=== PATIENT | female | born 1985 | race Caucasian/White ===

== ENCOUNTER 2019-01-22 15:07 | Emergency (ER) | payer OTHER ==
[2019-01-22 15:17] VITALS: BP 139/83; PULSE 105; RESP 16; TEMP 98.1
--- NOTE | 2019-01-22 15:46 | ED ---
Upper Extremity HPI - General Chief Complaint: Extremity Injury, Upper Stated Complaint: Hand Injury-Fall Time Seen by Provider: 01/22/19 15:16 Source: patient, RN notes reviewed Mode of arrival: ambulatory Limitations: no limitations - History of Present Illness Initial Comments: This a 33-year-old female presents emergency Department chief complaint right hand injury. Patient states that she slipped in her tub last night. Patient states she fell backwards catching herself with her right hand. Patient has right hand second digit pain from the distal tip to the metacarpal region. Patient denies any head injury no loss conscious. Patient states that she also has an injury to her fourth digit she has had a chronic issue they're states it is prudent at this time. - Related Data Allergies Allergy/AdvReac Type Severity Reaction Status Date / Time No Known Allergies Allergy Verified 01/22/19 15:17 Review of Systems ROS Statement: Those systems with pertinent positive or pertinent negative responses have been documented in the HPI. ROS Other: All systems not noted in ROS Statement are negative. Past Medical History Past Medical History: Asthma History of Any Multi-Drug Resistant Organisms: None Reported Past Surgical History: Cholecystectomy Past Psychological History: No Psychological Hx Reported Smoking Status: Current some day smoker Past Alcohol Use History: Occasional Past Drug Use History: None Reported General Exam Limitations: no limitations General appearance: alert, in no apparent distress Head exam: Present: atraumatic, normocephalic, normal inspection Eye exam: Present: normal appearance, PERRL, EOMI. Absent: scleral icterus, conjunctival injection, periorbital swelling Neck exam: Present: normal inspection, full ROM. Absent: tenderness, meningismus, lymphadenopathy Respiratory exam: Present: normal lung sounds bilaterally. Absent: respiratory distress, wheezes, rales, rhonchi, stridor Cardiovascular Exam: Present: regular rate, normal rhythm, normal heart sounds. Absent: systolic murmur, diastolic murmur, rubs, gallop, clicks Extremities exam: Present: other (Right hand second digit there is extensive swelling noted from the metacarpal region to the distal tib-fib, limited range of motion secondary to pain there is obvious old deformity to the right hand fourth digit with some ecchymosis noted today. Wrist tenderness no snuffbox tenderness) Neurological exam: Present: alert, oriented X3, CN II-XII intact, reflexes normal. Absent: motor sensory deficit Course Vital Signs 01/22/19 15:14 Temperature 98.1 F Pulse Rate 105 H Respiratory 16 Rate Blood Pressure 139/83 O2 Sat by Pulse 95 Oximetry Medical Decision Making - Medical Decision Making X-rays reviewed no acute fractures. Patient has a right hand sprain will follow-up with PCP return for any worsening symptoms. Disposition Clinical Impression: Sprain of right hand, Sprain of finger, right Disposition: HOME SELF-CARE Condition: Stable Instructions (If sedation given, give patient instructions): Hand Sprain (ED) Additional Instructions: Please return to the Emergency Department if symptoms worsen or any other concerns. Is patient prescribed a controlled substance at d/c from ED?: No Referrals: None,Stated [Primary Care Provider] - 1-2 days Time of Disposition: 16:22
--- NOTE | 2019-01-22 15:53 | XR ---
EXAMINATION TYPE: XR hand complete RT DATE OF EXAM: 01/22/2019 CLINICAL HISTORY: Pain and swelling of the second digit after fall. Limited range of motion. TECHNIQUE: Frontal, lateral and oblique images of the right hand are obtained. COMPARISON: None. FINDINGS: There is no acute fracture/dislocation evident in the right hand. The joint spaces in the right hand appear alignment. Degenerative change and/or old fracture deformity of the fourth distal i nterphalangeal joint with very minimal radial subluxation.. There is focal soft tissue swelling of th e proximal second digit. No radiopaque foreign body.. IMPRESSION: There is no acute fracture or dislocation in the right hand. Soft tissue swelling is see n proximally concerning the second digit and there is old fracture deformity versus degenerative baker ge of the fourth right distal interphalangeal joint.
== END 2019-01-22 16:24 | disposition home or self-care (01) ==
LOC: EC 15:07
DX: S63.650A Sprain of metacarpophalangeal joint of right index finger, initial encounter (principal); F17.200 Nicotine dependence, unspecified, uncomplicated; W19.XXXA Unspecified fall, initial encounter
CPT/HCPCS: 99283

== ENCOUNTER 2019-08-31 21:21 | Inpatient (IN) | payer OTHER ==
[2019-08-31 21:48] LABS: Glucose,Whole Blood 170 mg/dL (75-99)
[2019-08-31] MEDS ORDERED: SODIUM CHLORIDE 0.9% 2,000 ML IV STA (21:48)
[2019-08-31] MEDS ORDERED: ONDANSETRON 4 MG/2 ML VIAL IVP STA (21:48)
[2019-08-31] MEDS ORDERED: LORazepam 2 MG/ML INJ IV STA (21:49)
[2019-08-31 22:35] LABS: HCT 54.3 % (34.0-46.0); HGB 15.7 gm/dL (11.4-16.0); Hypochromasia Marked; MCH 32.8 pg (25.0-35.0); MCHC 28.8 g/dL (31.0-37.0); MCV 113.6 fL (80.0-100.0); Macrocytosis Marked; Mean Platelet Volume 9.9; Platelet Count 174 k/uL (150-450); RBC 4.78 m/uL (3.80-5.40); RDW 15.6 % (11.5-15.5)
[2019-08-31 22:46] LABS: ALT 83 U/L (4-34); AST 252 U/L (14-36); African American GFR (CKD) 85 (>60 ml/min/1.73 sqM); Albumin 5.7 g/dL (3.5-5.0); Alkaline Phosphatase 353 U/L (38-126); Amylase 119 U/L (30-110); Blood Urea Nitrogen 9 mg/dL (7-17); Calcium 9.9 mg/dL (8.4-10.2); Chloride 101 mmol/L (98-107); Glucose 170 mg/dL (74-99); Magnesium 2.6 mg/dL (1.6-2.3); Non-African American GFR(CKD) 74 (>60 ml/min/1.73 sqM); Sodium 136 mmol/L (137-145); Total Bilirubin 1.6 mg/dL (0.2-1.3); Total Protein 9.6 g/dL (6.3-8.2)
[2019-08-31 22:47] LABS: Anisocytosis (M) Present; Band Neutrophils % 7 %; Lymphocytes # (M) 1.43 k/uL (1.0-4.8); Metamyelocytes # (M) 0.26 k/uL (0); Metamyelocytes % 2 %; Monocytes # (M) 0.65 k/uL (0-1.0); Neutrophils % (M) 76 %; Nucleated Red Blood Cells 0 /100 WBC (0-0); Total Cells Counted 200
[2019-08-31 23:09] LABS: Carbon Dioxide <5 mmol/L (22-30); Potassium 6.1 mmol/L (3.5-5.1)
[2019-08-31 23:26] LABS: HCG,Qualitative Serum Not Detected
[2019-08-31] MEDS ORDERED: SODIUM BICARB 8.4% 50 ML SYR (1 MEQ/ML) IV STA ×2 (23:33)
[2019-08-31] MEDS ORDERED: SODIUM CHLORIDE 0.9% 1,000 ML IV STA ×2 (23:35)
--- NOTE | 2019-08-31 23:36 | XR ---
EXAMINATION TYPE: XR chest 2V DATE OF EXAM: 08/31/2019 COMPARISON: NONE HISTORY: Short of breath. Cough. Nausea. TECHNIQUE: 2 views FINDINGS: Heart and mediastinum are normal. Lungs are clear. Diaphragm is normal. Bony thorax appears normal. IMPRESSION: Normal chest. Normal heart.
--- NOTE | 2019-08-31 23:39 | ED ---
General Adult HPI - General Source: patient Mode of arrival: ambulatory Limitations: no limitations <Rhoda Pedroza - Last Filed: 08/31/19 23:40> - General Source: RN notes reviewed, old records reviewed - History of Present Illness -: days(s) Severity scale (1-10): 10 Consistency: constant Improves with: none Worsens with: eating, movement Associated Symptoms: malaise, nausea/vomiting, shortness of breath, weakness Treatments Prior to Arrival: none <Dipak Cardozo - Last Filed: 09/01/19 01:34> - General Chief complaint: Shortness of Breath Stated complaint: Vomiting, SOB Time Seen by Provider: 08/31/19 21:40 - History of Present Illness Initial comments: 34-year-old female patient presents to the emergency department today for evaluation of nausea, vomiting, shortness of breath. Patient states she's been sick since yesterday morning with vomiting. States she is unable to keep down any food or fluids. Patient states today she started to feel short of breath like she wasn't getting enough air. States that she is having some discomfort to the mid chest with this. Denies any abdominal pain, constipation, or diarrhea. Denies any hematochezia, melena, or hematemesis. Denies any fever or chills. Denies any cough or congestion. Patient states that she has been urinating frequently, every 20 minutes. Denies any dysuria or hematuria. Denies any chance of . Patient does admit to drinking alcohol daily for the last several years. Denies drinking alcohol today. Patient denies any recent rash, chest pain, abdominal pain, numbness, tingling, dizziness, weakness, hematuria, dysuria, urinary urgency, urinary frequency, headache, visual changes, or any other complaints. (Rhoda Pedroza) - Related Data Home Medications Medication Instructions Recorded Confirmed Albuterol Inhaler [Ventolin Hfa 2 puff INHALATION RT-Q6H PRN 08/31/19 08/31/19 Inhaler] Buprenorphine HCl/Naloxone HCl 0.5 film SL HS 08/31/19 08/31/19 [Suboxone 4 mg-1 mg Sl Film] Buprenorphine HCl/Naloxone HCl 1 film SL DAILY 08/31/19 08/31/19 [Suboxone 4 mg-1 mg Sl Film] Venlafaxine HCl [Effexor XR] 37.5 mg PO DAILY 08/31/19 08/31/19 busPIRone HCL 15 mg PO BID 08/31/19 08/31/19 lamoTRIgine [LaMICtal] 50 mg PO BID 08/31/19 08/31/19 Allergies Allergy/AdvReac Type Severity Reaction Status Date / Time No Known Allergies Allergy Verified 08/31/19 22:21 Review of Systems ROS Other: All systems not noted in ROS Statement are negative. <Rhoda Pedroza - Last Filed: 08/31/19 23:40> ROS Other: All systems not noted in ROS Statement are negative. <Dipak Cardooz - Last Filed: 09/01/19 01:34> ROS Statement: Those systems with pertinent positive or pertinent negative responses have been documented in the HPI. Past Medical History Past Medical History: Asthma History of Any Multi-Drug Resistant Organisms: None Reported Past Surgical History: Cholecystectomy Past Psychological History: No Psychological Hx Reported Smoking Status: Current some day smoker Past Alcohol Use History: Heavy Past Drug Use History: None Reported <Rhoda Pedroza - Last Filed: 08/31/19 23:40> General Exam Limitations: no limitations General appearance: alert, in no apparent distress, other (This is a well- developed, well-nourished adult female patient who appears to be short of breath and quite anxious. Vital signs upon presentation are temperature 97.4F, pulse 124, respirations 20, blood pressure 149/89, pulse ox 99% on room air.) Eye exam: Present: normal appearance, PERRL, EOMI. Absent: scleral icterus, conjunctival injection, periorbital swelling ENT exam: Present: normal exam, normal oropharynx, mucous membranes moist Respiratory exam: Present: normal lung sounds bilaterally, respiratory distress, other (Lungs sounds are clear, she is to, abdominal accessory muscle use). Absent: wheezes, rales, rhonchi, stridor Cardiovascular Exam: Present: normal rhythm, tachycardia, normal heart sounds. Absent: systolic murmur, diastolic murmur, rubs, gallop, clicks GI/Abdominal exam: Present: soft, normal bowel sounds. Absent: distended, tenderness, guarding, rebound, rigid Neurological exam: Present: alert, oriented X3, CN II-XII intact Psychiatric exam: Present: normal affect, normal mood Skin exam: Present: warm, dry, intact, normal color. Absent: rash <Rhoda Pedroza - Last Filed: 08/31/19 23:40> General appearance: alert, anxious, in distress Head exam: Present: atraumatic, normocephalic, normal inspection Eye exam: Present: normal appearance, PERRL, EOMI. Absent: scleral icterus, conjunctival injection, periorbital swelling ENT exam: Present: normal exam, mucous membranes dry. Absent: mucous membranes moist Neck exam: Present: normal inspection. Absent: tenderness, meningismus, lymphadenopathy Respiratory exam: Present: respiratory distress, accessory muscle use. Absent: normal lung sounds bilaterally, wheezes, rales, rhonchi, stridor Cardiovascular Exam: Present: regular rate, tachycardia, normal heart sounds. Absent: normal rhythm, systolic murmur, diastolic murmur, rubs, gallop, clicks GI/Abdominal exam: Present: soft, normal bowel sounds. Absent: distended, tend erness, guarding, rebound, rigid Extremities exam: Present: normal inspection, full ROM, normal capillary refill. Absent: tenderness, pedal edema, joint swelling, calf tenderness Back exam: Present: normal inspection Neurological exam: Present: alert, oriented X3, CN II-XII intact Psychiatric exam: Present: normal affect, normal mood, agitated, anxious Skin exam: Present: warm, dry, intact, normal color. Absent: rash <Dipak Cardozo B - Last Filed: 09/01/19 01:34> Course <Rhoda Pedroza M - Last Filed: 08/31/19 23:40> Vital Signs 08/31/19 08/31/19 08/31/19 21:28 21:56 22:00 Temperature 97.4 F L Pulse Rate 124 H 119 H Pulse Rate [ 160 H Apical] Respiratory 20 24 Rate Blood Pressure 149/89 156/101 O2 Sat by Pulse 99 98 Oximetry 08/31/19 09/01/19 09/01/19 22:11 00:50 01:02 Temperature 98.5 F Pulse Rate 118 H 142 H Pulse Rate [ 144 H Apical] Respiratory 26 H 28 H Rate Blood Pressure 166/105 150/102 O2 Sat by Pulse 98 97 Oximetry 09/01/19 01:20 Temperature Pulse Rate 120 H Pulse Rate [ Apical] Respiratory Rate Blood Pressure O2 Sat by Pulse Oximetry - Reevaluation(s) Reevaluation #1: 08/31/19 23:40 Care is handed over to my attending Dr. Cardozo at 2330. (Rhoda Pedroza) EKG Findings - EKG Comments: EKG Findings:: EKG obtained at 2211 shows sinus tachycardia with a left anterior fascicular block, ventricular rate is 118, ID interval 134, QRS duration 86, QT 342, QTc 479. No evidence of ST elevation or depression. <Rhoda Pedroza - Last Filed: 08/31/19 23:40> - EKG Comments: EKG Findings:: EKG shows sinus tachycardia 144, ID 90, QRS 78, QTC 566 <Dipak Cardozo - Last Filed: 09/01/19 01:34> Medical Decision Making - Lab Data Result diagrams: 08/31/19 21:57 08/31/19 21:57 <Rhoda Pedroza - Last Filed: 08/31/19 23:40> - Lab Data Result diagrams: 08/31/19 21:57 08/31/19 21:57 <Dipak Cardozo - Last Filed: 09/01/19 01:34> - Lab Data Lab Results 08/31/19 08/31/19 08/31/19 Range/Units 21:46 21:57 21:57 WBC 13.0 H (3.8-10.6) k/uL RBC 4.78 (3.80-5.40) m/uL Hgb 15.7 (11.4-16.0) gm/dL Hct 54.3 H (34.0-46.0) % MCV 113.6 H (80.0-100.0) fL MCH 32.8 (25.0-35.0) pg MCHC 28.8 L (31.0-37.0) g/dL RDW 15.6 H (11.5-15.5) % Plt Count 174 (150-450) k/uL Neutrophils % (Manual) 76 % Band Neutrophils % 7 % Lymphocytes % (Manual) 11 % Monocytes % (Manual) 5 % Metamyelocytes % 2 % Neutrophils # (Manual) 10.70 H (1.3-7.7) k/uL Lymphocytes # (Manual) 1.43 (1.0-4.8) k/uL Monocytes # (Manual) 0.65 (0-1.0) k/uL Metamyelocytes # (Man) 0.26 H (0) k/uL Nucleated RBCs 0 (0-0) /100 WBC Manual Slide Review Performed Hypochromasia Marked Anisocytosis (manual) Present Macrocytosis Marked A VBG pH (7.31-7.41) VBG pCO2 (37-51) mmHg VBG HCO3 (24-28) mmol/L Sodium 136 L (137-145) mmol/L Potassium 6.1 H* (3.5-5.1) mmol/L Chloride 101 (98-107) mmol/L Carbon Dioxide <5 L* (22-30) mmol/L Anion Gap mmol/L BUN 9 (7-17) mg/dL Creatinine 1.01 (0.52-1.04) mg/dL Est GFR (CKD-EPI)AfAm 85 (>60 ml/min/1.73 sqM) Est GFR (CKD-EPI)NonAf 74 (>60 ml/min/1.73 sqM) Glucose 170 H (74-99) mg/dL POC Glucose (mg/dL) 170 H (75-99) mg/dL POC Glu [employer] ID Tiffani [employer] Osmolality (280-301) mosm/kg Plasma Lactic Acid Enzo (0.7-2.0) mmol/L Calcium 9.9 (8.4-10.2) mg/dL Phosphorus (2.5-4.5) mg/dL Magnesium 2.6 H (1.6-2.3) mg/dL Total Bilirubin 1.6 H (0.2-1.3) mg/dL AST 252 H (14-36) U/L ALT 83 H (4-34) U/L Alkaline Phosphatase 353 H (38-126) U/L Troponin I (0.000-0.034) ng/mL Total Protein 9.6 H (6.3-8.2) g/dL Albumin 5.7 H (3.5-5.0) g/dL Amylase 119 H (30-110) U/L Lipase 626 H (23-300) U/L HCG, Qual Urine Color Urine Appearance (Clear) Urine pH (5.0-8.0) Ur Specific Ellis (1.001-1.035) Urine Protein (Negative) Urine Glucose (UA) (Negative) Urine Ketones (Negative) Urine Blood (Negative) Urine Nitrite (Negative) Urine Bilirubin (Negative) Urine Urobilinogen (<2.0) mg/dL Ur Leukocyte Esterase (Negative) Urine RBC (0-5) /hpf Ur Squamous Epith Cells (0-4) /hpf Urine Bacteria (None) /hpf Hyaline Casts (0-2) /lpf Urine Mucus (None) /hpf Salicylates mg/dL Acetaminophen ug/mL Serum Alcohol mg/dL Acetone, Qual Positive (Negative) 08/31/19 08/31/19 08/31/19 Range/Units 21:57 21:57 23:34 WBC (3.8-10.6) k/uL RBC (3.80-5.40) m/uL Hgb (11.4-16.0) gm/dL Hct (34.0-46.0) % MCV (80.0-100.0) fL MCH (25.0-35.0) pg MCHC (31.0-37.0) g/dL RDW (11.5-15.5) % Plt Count (150-450) k/uL Neutrophils % (Manual) % Band Neutrophils % % Lymphocytes % (Manual) % Monocytes % (Manual) % Metamyelocytes % % Neutrophils # (Manual) (1.3-7.7) k/uL Lymphocytes # (Manual) (1.0-4.8) k/uL Monocytes # (Manual) (0-1.0) k/uL Metamyelocytes # (Man) (0) k/uL Nucleated RBCs (0-0) /100 WBC Manual Slide Review Hypochromasia Anisocytosis (manual) Macrocytosis VBG pH (7.31-7.41) VBG pCO2 (37-51) mmHg VBG HCO3 (24-28) mmol/L Sodium (137-145) mmol/L Potassium (3.5-5.1) mmol/L Chloride (98-107) mmol/L Carbon Dioxide (22-30) mmol/L Anion Gap mmol/L BUN (7-17) mg/dL Creatinine (0.52-1.04) mg/dL Est GFR (CKD-EPI)AfAm (>60 ml/min/1.73 sqM) Est GFR (CKD-EPI)NonAf (>60 ml/min/1.73 sqM) Glucose (74-99) mg/dL POC Glucose (mg/dL) (75-99) mg/dL POC Glu [employer] ID Osmolality 311 H (280-301) mosm/kg Plasma Lactic Acid Enzo 1.4 (0.7-2.0) mmol/L Calcium (8.4-10.2) mg/dL Phosphorus (2.5-4.5) mg/dL Magnesium (1.6-2.3) mg/dL Total Bilirubin (0.2-1.3) mg/dL AST (14-36) U/L ALT (4-34) U/L Alkaline Phosphatase (38-126) U/L Troponin I <0.012 (0.000-0.034) ng/mL Total Protein (6.3-8.2) g/dL Albumin (3.5-5.0) g/dL Amylase (30-110) U/L Lipase (23-300) U/L HCG, Qual Not Detected Urine Color Urine Appearance (Clear) Urine pH (5.0-8.0) Ur Specific Ellis (1.001-1.035) Urine Protein (Negative) Urine Glucose (UA) (Negative) Urine Ketones (Negative) Urine Blood (Negative) Urine Nitrite (Negative) Urine Bilirubin (Negative) Urine Urobilinogen (<2.0) mg/dL Ur Leukocyte Esterase (Negative) Urine RBC (0-5) /hpf Ur Squamous Epith Cells (0-4) /hpf Urine Bacteria (None) /hpf Hyaline Casts (0-2) /lpf Urine Mucus (None) /hpf Salicylates mg/dL Acetaminophen ug/mL Serum Alcohol mg/dL Acetone, Qual (Negative) 08/31/19 08/31/19 09/01/19 Range/Units 23:52 23:52 00:35 WBC (3.8-10.6) k/uL RBC (3.80-5.40) m/uL Hgb (11.4-16.0) gm/dL Hct (34.0-46.0) % MCV (80.0-100.0) fL MCH (25.0-35.0) pg MCHC (31.0-37.0) g/dL RDW (11.5-15.5) % Plt Count (150-450) k/uL Neutrophils % (Manual) % Band Neutrophils % % Lymphocytes % (Manual) % Monocytes % (Manual) % Metamyelocytes % % Neutrophils # (Manual) (1.3-7.7) k/uL Lymphocytes # (Manual) (1.0-4.8) k/uL Monocytes # (Manual) (0-1.0) k/uL Metamyelocytes # (Man) (0) k/uL Nucleated RBCs (0-0) /100 WBC Manual Slide Review Hypochromasia Anisocytosis (manual) Macrocytosis VBG pH 6.94 L* (7.31-7.41) VBG pCO2 22 L (37-51) mmHg VBG HCO3 5 L* (24-28) mmol/L Sodium (137-145) mmol/L Potassium (3.5-5.1) mmol/L Chloride (98-107) mmol/L Carbon Dioxide (22-30) mmol/L Anion Gap mmol/L BUN (7-17) mg/dL Creatinine (0.52-1.04) mg/dL Est GFR (CKD-EPI)AfAm (>60 ml/min/1.73 sqM) Est GFR (CKD-EPI)NonAf (>60 ml/min/1.73 sqM) Glucose (74-99) mg/dL POC Glucose (mg/dL) (75-99) mg/dL POC Glu [employer] ID Osmolality (280-301) mosm/kg Plasma Lactic Acid Enzo (0.7-2.0) mmol/L Calcium (8.4-10.2) mg/dL Phosphorus 6.1 H (2.5-4.5) mg/dL Magnesium 2.4 H (1.6-2.3) mg/dL Total Bilirubin (0.2-1.3) mg/dL AST (14-36) U/L ALT (4-34) U/L Alkaline Phosphatase (38-126) U/L Troponin I (0.000-0.034) ng/mL Total Protein (6.3-8.2) g/dL Albumin (3.5-5.0) g/dL Amylase (30-110) U/L Lipase (23-300) U/L HCG, Qual Urine Color Light Yellow Urine Appearance Clear (Clear) Urine pH 5.5 (5.0-8.0) Ur Specific Ellis 1.016 (1.001-1.035) Urine Protein 2+ H (Negative) Urine Glucose (UA) Negative (Negative) Urine Ketones 4+ H (Negative) Urine Blood Large H (Negative) Urine Nitrite Negative (Negative) Urine Bilirubin Negative (Negative) Urine Urobilinogen 2.0 (<2.0) mg/dL Ur Leukocyte Esterase Negative (Negative) Urine RBC 31 H (0-5) /hpf Ur Squamous Epith Cells <1 (0-4) /hpf Urine Bacteria Rare H (None) /hpf Hyaline Casts 1 (0-2) /lpf Urine Mucus Rare H (None) /hpf Salicylates 1.1 mg/dL Acetaminophen <10.0 ug/mL Serum Alcohol <10 mg/dL Acetone, Qual (Negative) Critical Care Time Critical Care Time: Yes Total Critical Care Time: 95 <Dipak Cardozo - Last Filed: 09/01/19 01:34> Disposition <Rhoda Pedroza - Last Filed: 08/31/19 23:40> Is patient prescribed a controlled substance at d/c from ED?: No <Dipak Cardozo - Last Filed: 09/01/19 01:34> Clinical Impression: Acidosis, Dehydration, Nausea & vomiting Narrative: suspect Toxic Alcohol Ingestion (Dipak Cardozo) Disposition: ADMITTED IP TO THIS HOSP Condition: Critical Referrals: Yareli Tuttle MD [Primary Care Provider] - 1-2 days
[2019-08-31] MEDS: DEXTROSE 5% IN WATER 1,000 ML with SODIUM BICARB (1 MEQ/ML) 150 ML IV SCH (23:55)
[2019-09-01] MEDS ORDERED: PANTOPRAZOLE 40 MG/10 ML VIAL IVP STA (00:15)
[2019-09-01 00:17] LABS: Acetaminophen <10.0 ug/mL; Alcohol <10 mg/dL; Salicylate 1.1 mg/dL
[2019-09-01 00:19] LABS: Magnesium 2.4 mg/dL (1.6-2.3); Phosphorus 6.1 mg/dL (2.5-4.5)
[2019-09-01 00:22] LABS: VBG PH 6.94 (7.31-7.41)
[2019-09-01 00:44] LABS: Appearance,Urine Clear (Clear); Bacteria,Urine Rare /hpf; Bilirubin,Urine Negative (Negative); Blood,Urine Large (Negative); Color,Urine Light Yellow; Glucose,Urine (UA) Negative (Negative); Hyaline Casts,Urine 1 /lpf (0-2); Ketones,Urine 4+ (Negative); Leukocyte Esterase,Urine Negative (Negative); Mucus,Urine Rare /hpf; Nitrite,Urine Negative (Negative); PH, Urine 5.5 (5.0-8.0); Protein,Urine 2+ (Negative); RBC,Urine 31 /hpf (0-5); Specific Gravity,Urine 1.016 (1.001-1.035); Squamous Epithelial Cell,Urine <1 /hpf (0-4)
[2019-09-01] MEDS ORDERED: MORPHINE SULFATE 4 MG/ML SYRINGE IM STA (00:49)
[2019-09-01] MEDS ORDERED: IPRATROPIUM-ALBUTEROL 3 ML NEB INHALATION STA (00:51)
[2019-09-01] MEDS ORDERED: FOLIC ACID 1 MG TAB PO ONE (01:15)
[2019-09-01] MEDS ORDERED: SODIUM CHLORIDE 0.9% IVPB ONE (01:15)
[2019-09-01] MEDS ORDERED: FOMEPIZOLE IVPB ONE (01:15)
[2019-09-01] MEDS ORDERED: PYRIDOXINE 100 MG/ML 1 ML VIAL IVP ONE (01:15)
[2019-09-01] MEDS ORDERED: THIAMINE 100 MG in SODIUM CHLORIDE 0.9% 50 ML IVPB ONE (01:15)
[2019-09-01 01:26] LABS: INR 0.9 (<1.2); Partial Thromboplastin Time 28.5 sec (22.0-30.0); Prothrombin Time 9.8 sec (9.0-12.0)
[2019-09-01] MEDS ORDERED: NALOXONE 0.4 MG/ML 1 ML VIAL IV PRN (01:30)
--- NOTE | 2019-09-01 02:38 | P.GSCN ---
History of Present Illness Consult date: 09/01/19 History of present illness: Patient is a 34-year-old female in with toxic alcohol ingestion. She denies any ingestion of antifreeze but she presents with an anion gap metabolic acidosis. Consult was requested for emergent hemodialysis access Past Medical History Past Medical History: Asthma History of Any Multi-Drug Resistant Organisms: None Reported Past Surgical History: Cholecystectomy Past Psychological History: No Psychological Hx Reported Smoking Status: Current some day smoker Past Alcohol Use History: Heavy Past Drug Use History: None Reported Medications and Allergies Home Medications Medication Instructions Recorded Confirmed Type Albuterol Inhaler [Ventolin Hfa 2 puff INHALATION RT-Q6H PRN 08/31/19 08/31/19 History Inhaler] Buprenorphine HCl/Naloxone HCl 0.5 film SL HS 08/31/19 08/31/19 History [Suboxone 4 mg-1 mg Sl Film] Buprenorphine HCl/Naloxone HCl 1 film SL DAILY 08/31/19 08/31/19 History [Suboxone 4 mg-1 mg Sl Film] Venlafaxine HCl [Effexor XR] 37.5 mg PO DAILY 08/31/19 08/31/19 History busPIRone HCL 15 mg PO BID 08/31/19 08/31/19 History lamoTRIgine [LaMICtal] 50 mg PO BID 08/31/19 08/31/19 History Allergies Allergy/AdvReac Type Severity Reaction Status Date / Time No Known Allergies Allergy Verified 08/31/19 22:21 Surgical - Exam Vital Signs Temp Pulse Resp BP Pulse Ox 97.4 F L 124 H 20 149/89 99 08/31/19 21:28 08/31/19 21:28 08/31/19 21:28 08/31/19 21:28 08/31/19 21:28 Genitals a pleasant cooperative appendage female in no acute distress. HEENT is normal cephalic, atraumatic, extraocular motion intact. Heart regular this time, tachycardic. Lungs clear bilaterally. Abdomen soft, nontender nondistended. Extremity show no clubbing, cyanosis or edema. She has palpable femoral pulses bilaterally. Feet are warm and dry. Adequate capillary refill. Follows commands. Results - Labs 08/31/19 21:57 08/31/19 21:57 Abnormal Lab Results - Last 24 Hours (Table) 08/31/19 08/31/19 08/31/19 Range/Units 21:46 21:57 21:57 WBC 13.0 H (3.8-10.6) k/uL Hct 54.3 H (34.0-46.0) % MCV 113.6 H (80.0-100.0) fL MCHC 28.8 L (31.0-37.0) g/dL RDW 15.6 H (11.5-15.5) % Neutrophils # (Manual) 10.70 H (1.3-7.7) k/uL Metamyelocytes # (Man) 0.26 H (0) k/uL Macrocytosis Marked A VBG pH (7.31-7.41) VBG pCO2 (37-51) mmHg VBG HCO3 (24-28) mmol/L Sodium 136 L (137-145) mmol/L Potassium 6.1 H* (3.5-5.1) mmol/L Carbon Dioxide <5 L* (22-30) mmol/L Glucose 170 H (74-99) mg/dL POC Glucose (mg/dL) 170 H (75-99) mg/dL Osmolality (280-301) mosm/kg Phosphorus (2.5-4.5) mg/dL Magnesium 2.6 H (1.6-2.3) mg/dL Total Bilirubin 1.6 H (0.2-1.3) mg/dL AST 252 H (14-36) U/L ALT 83 H (4-34) U/L Alkaline Phosphatase 353 H (38-126) U/L Total Protein 9.6 H (6.3-8.2) g/dL Albumin 5.7 H (3.5-5.0) g/dL Amylase 119 H (30-110) U/L Lipase 626 H (23-300) U/L Urine Protein (Negative) Urine Ketones (Negative) Urine Blood (Negative) Urine RBC (0-5) /hpf Urine Bacteria (None) /hpf Urine Mucus (None) /hpf 08/31/19 08/31/19 08/31/19 Range/Units 21:57 23:52 23:52 WBC (3.8-10.6) k/uL Hct (34.0-46.0) % MCV (80.0-100.0) fL MCHC (31.0-37.0) g/dL RDW (11.5-15.5) % Neutrophils # (Manual) (1.3-7.7) k/uL Metamyelocytes # (Man) (0) k/uL Macrocytosis VBG pH 6.94 L* (7.31-7.41) VBG pCO2 22 L (37-51) mmHg VBG HCO3 5 L* (24-28) mmol/L Sodium (137-145) mmol/L Potassium (3.5-5.1) mmol/L Carbon Dioxide (22-30) mmol/L Glucose (74-99) mg/dL POC Glucose (mg/dL) (75-99) mg/dL Osmolality 311 H (280-301) mosm/kg Phosphorus 6.1 H (2.5-4.5) mg/dL Magnesium 2.4 H (1.6-2.3) mg/dL Total Bilirubin (0.2-1.3) mg/dL AST (14-36) U/L ALT (4-34) U/L Alkaline Phosphatase (38-126) U/L Total Protein (6.3-8.2) g/dL Albumin (3.5-5.0) g/dL Amylase (30-110) U/L Lipase (23-300) U/L Urine Protein (Negative) Urine Ketones (Negative) Urine Blood (Negative) Urine RBC (0-5) /hpf Urine Bacteria (None) /hpf Urine Mucus (None) /hpf 09/01/19 Range/Units 00:35 WBC (3.8-10.6) k/uL Hct (34.0-46.0) % MCV (80.0-100.0) fL MCHC (31.0-37.0) g/dL RDW (11.5-15.5) % Neutrophils # (Manual) (1.3-7.7) k/uL Metamyelocytes # (Man) (0) k/uL Macrocytosis VBG pH (7.31-7.41) VBG pCO2 (37-51) mmHg VBG HCO3 (24-28) mmol/L Sodium (137-145) mmol/L Potassium (3.5-5.1) mmol/L Carbon Dioxide (22-30) mmol/L Glucose (74-99) mg/dL POC Glucose (mg/dL) (75-99) mg/dL Osmolality (280-301) mosm/kg Phosphorus (2.5-4.5) mg/dL Magnesium (1.6-2.3) mg/dL Total Bilirubin (0.2-1.3) mg/dL AST (14-36) U/L ALT (4-34) U/L Alkaline Phosphatase (38-126) U/L Total Protein (6.3-8.2) g/dL Albumin (3.5-5.0) g/dL Amylase (30-110) U/L Lipase (23-300) U/L Urine Protein 2+ H (Negative) Urine Ketones 4+ H (Negative) Urine Blood Large H (Negative) Urine RBC 31 H (0-5) /hpf Urine Bacteria Rare H (None) /hpf Urine Mucus Rare H (None) /hpf Diabetes panel 08/31/19 Range/Units 21:57 Sodium 136 L (137-145) mmol/L Potassium 6.1 H* (3.5-5.1) mmol/L Chloride 101 (98-107) mmol/L Carbon Dioxide <5 L* (22-30) mmol/L BUN 9 (7-17) mg/dL Creatinine 1.01 (0.52-1.04) mg/dL Glucose 170 H (74-99) mg/dL Calcium 9.9 (8.4-10.2) mg/dL AST 252 H (14-36) U/L ALT 83 H (4-34) U/L Alkaline Phosphatase 353 H (38-126) U/L Total Protein 9.6 H (6.3-8.2) g/dL Albumin 5.7 H (3.5-5.0) g/dL Calcium panel 08/31/19 08/31/19 Range/Units 21:57 23:52 Calcium 9.9 (8.4-10.2) mg/dL Phosphorus 6.1 H (2.5-4.5) mg/dL Albumin 5.7 H (3.5-5.0) g/dL Pituitary panel 08/31/19 Range/Units 21:57 Sodium 136 L (137-145) mmol/L Potassium 6.1 H* (3.5-5.1) mmol/L Chloride 101 (98-107) mmol/L Carbon Dioxide <5 L* (22-30) mmol/L BUN 9 (7-17) mg/dL Creatinine 1.01 (0.52-1.04) mg/dL Glucose 170 H (74-99) mg/dL Calcium 9.9 (8.4-10.2) mg/dL Adrenal panel 08/31/19 Range/Units 21:57 Sodium 136 L (137-145) mmol/L Potassium 6.1 H* (3.5-5.1) mmol/L Chloride 101 (98-107) mmol/L Carbon Dioxide <5 L* (22-30) mmol/L BUN 9 (7-17) mg/dL Creatinine 1.01 (0.52-1.04) mg/dL Glucose 170 H (74-99) mg/dL Calcium 9.9 (8.4-10.2) mg/dL Total Bilirubin 1.6 H (0.2-1.3) mg/dL AST 252 H (14-36) U/L ALT 83 H (4-34) U/L Alkaline Phosphatase 353 H (38-126) U/L Total Protein 9.6 H (6.3-8.2) g/dL Albumin 5.7 H (3.5-5.0) g/dL Assessment and Plan Assessment: Hyperkalemia Hypermagnesemia hyperphosphatemia Abnormal LFTs Suspected toxic alcohol ingestion Need for emergent hemodialysis Plan: We'll plan for placement of emergent temporary hemodialysis catheter
--- NOTE | 2019-09-01 02:46 | P.OP ---
Date of Procedure: 09/01/19 Description of Procedure: Preoperative diagnosis: Suspected toxic alcohol ingestion, hyperkalemia Postoperative diagnosis: Same Procedure: [Ultrasound-guided right common femoral vein access, placement of temporary dialysis cathether] Surgeon: Melissa Toth D.O. EBL: [<10cc] IV fluids: [none] Urine output: [none] Drains: [none] Complications: [none] Condition: [Stable but critical] Operative indication and findings: [Patient is a 34-year-old female with suspected toxic alcohol ingestion we are asked to see her for placement of temporary dialysis catheter] Procedure in detail: [Patient's placed in supine position. The right groin was prepped and draped in usual sterile fashion. A preprocedure timeout was performed, all parties are in agreement. This was performed under emergent necessity. Ultrasound utilized and the right common femoral vein was identified. The skin overlying was anesthetized 1% lidocaine plain. Under ultrasound guidance, the common femoral vein was cannulated. Wire was advanced freely without resistance. The tract was serially dilated and a previously flushed 16 cm her catheter was placed. The catheter was aspirated and flushed freely. It was sutured in place with 3-0 nylon. Dressings were placed. Patient tolerated procedure well]
[2019-09-01 07:57] LABS: Glucose,Whole Blood 110 mg/dL (75-99)
[2019-09-01] MEDS: PANTOPRAZOLE 40 MG/10 ML VIAL IV SCH (08:49)
[2019-09-01] MEDS: FOLIC ACID 1 MG TAB PO SCH (08:49)
[2019-09-01 08:50] LABS: VBG PH 7.38 (7.31-7.41)
[2019-09-01 08:59] LABS: Basophils % (A) 0 %; Eosinophils # (A) 0.2 k/uL (0-0.7); Eosinophils % (A) 1 %; HCT 42.3 % (34.0-46.0); HGB 13.2 gm/dL (11.4-16.0); Hypochromasia Moderate; Lymphocytes # (A) 0.6 k/uL (1.0-4.8); Lymphocytes % (A) 5 %; MCH 33.1 pg (25.0-35.0); MCHC 31.1 g/dL (31.0-37.0); Macrocytosis Moderate; Mean Platelet Volume 9.3; Monocytes # (A) 0.3 k/uL (0-1.0); Monocytes % (A) 3 %; Neutrophils # (A) 10.7 k/uL (1.3-7.7); Neutrophils % (A) 91 %; RBC 3.98 m/uL (3.80-5.40); RDW 15.1 % (11.5-15.5); WBC 11.8 k/uL (3.8-10.6)
[2019-09-01 09:00] LABS: MCV 106.4 fL (80.0-100.0)
[2019-09-01 09:06] LABS: ALT 57 U/L (4-34); AST 160 U/L (14-36); African American GFR (CKD) >90 (>60 ml/min/1.73 sqM); Albumin 4.3 g/dL (3.5-5.0); Alkaline Phosphatase 240 U/L (38-126); Anion Gap 24 mmol/L; Blood Urea Nitrogen 2 mg/dL (7-17); Calcium 7.8 mg/dL (8.4-10.2); Carbon Dioxide 16 mmol/L (22-30); Chloride 92 mmol/L (98-107); Glucose 110 mg/dL (74-99); Magnesium 1.5 mg/dL (1.6-2.3); Non-African American GFR(CKD) >90 (>60 ml/min/1.73 sqM); Potassium 3.4 mmol/L (3.5-5.1); Sodium 132 mmol/L (137-145); Total Bilirubin 1.6 mg/dL (0.2-1.3)
[2019-09-01 09:11] LABS: Platelet Count 97 k/uL (150-450)
[2019-09-01 09:40] LABS: Phosphorus 0.9 mg/dL (2.5-4.5)
[2019-09-01 09:41] LABS: Amylase 437 U/L (30-110)
[2019-09-01] MEDS ORDERED: Phosphorus Replacement Protoco 1 EACH MISC MISCELLANE PRN (09:44)
[2019-09-01] MEDS: SODIUM PHOSPHATE 10 MMOL in SODIUM CHLORIDE 0.9% 250 ML IVPB SCH ×3 (11:30→15:30)
[2019-09-01 14:05] LABS: Hepatitis B Surface AB- Quant 3.5 mIU/mL; Hepatitis B Surface Antibody Non-Reactive (Non-Reactive)
--- NOTE | 2019-09-01 14:10 | P.CN ---
Psychiatric Consult - . Consult date: 09/01/19 Consult:: IDENTIFYING DATA: The patient is a 34-year-old female who has history of alcohol and opiate use disorder. She presented to [facility] with complaints of nausea, vomiting and shortness of breath. The emergency room ph ysician submitted a psychiatric consult evaluation of suicidality. HISTORY OF PRESENT ILLNESS: I reviewed the medical record and interviewed the patient. She denied that she has had thoughts of suicide and denied that she made a suicide attempt prior to admission. She was shocked by the suggestion that she may have drank antifreeze. She denied a history of suicide attempts or gestures. She described a history of alcohol and opiate use disorder. She is currently prescribed Suboxone by a community psychiatrist for the treatment of her opiate use disorder. She alleged that she remains abstinent from opiates as long as she takes Suboxone. She described a history of alcohol use and alcohol use problems that have been present since her early 20s. Her alcohol use has increased significantly since she was dismissed from work in May 2019. She talked about her alcohol use and worsening over the last 2 months as she experienced social isolation as a result of the pandemic. She is drinking up to one fifth of vodka per day when she developed nausea, vomiting and shortness of breath. Her admission salicylates 1.1, acetaminophen was less than 10 and serum alcohol was less than 10. Note that her amylase and lipase were markedly elevated at 437 and 8932 respectively. She denied current or recent use of opiates with the exception of the Suboxone. A urine drug screen was not a vailable for review. She described chronic feelings of depression that have worsened during the social isolation and increase in alcohol use. She denied feeling hopeless, helpless or worthless. She denied suicidal ideation, intent or plan. She denied again a history of suicide attempts or gestures. She denied experiencing persistent uncontrolled anxiety. She denied obsessions or compulsions. She denied having periods of elevated mood or sustained irritability consistent with ora or hypomania. She denied such psychotic symptoms with paranoia, confusion and hallucinations. PAST PSYCHIATRIC HISTORY: She denied psychiatric hospitalizations. She's been treated on by a community psychiatrist since she moved to [facility] 4 years ago. He psychiatrist is treating her for opiate use disorder, alcohol use disorder and depression with Lamictal, BuSpar, Effexor and Suboxone. PAST MEDICAL HISTORY: Asthma. ALLERGIES: Known drug ALLERGIES. SUBSTANCE USE HISTORY: She began drinking alcohol in her 20s. She was admitted to [place] for residential alcohol rehabilitation about 4 years ago. She remained in the [place] area because she entered a [facility] after she left [place]. She was abstinent from alcohol while in [place] and the three-quarter house. She began using oral opiates medications in her 20s purportedly following a gallbladder surgery. She described a history of abuse of opiate pain medications and the use of heroin. She has history of poor insufflated and injecting heroin. She last used heroin "many years ago". She was in a residential treatment program for her opiate use disorder in [facility]. She denied participation in a methadone treatment program. She has been abstinent from heroin and oral opiate pain medication since she started Suboxone. FAMILY PSYCHIATRIC/SUBSTANCE USE HISTORY: She believes that her mother has a history of substance use problem. SOCIAL HISTORY: She graduated from high school and received a socialist degree in business administration from [employer]. She is single and has no children. She lives with her fianc. She is currently unemployed and receives unemployment income. She denied a history of DUIs. She is not on probation, parole or has pending charges. MENTAL STATUS EXAM: She presented as a disheveled appearing 34-year-old modera tely obese female who looked older than her stated age. She made eye contact and attempted to interview. She had no distinguishing features or prominent physical abilities. She had a blunted facial expression. She was alert and oriented to person, place and time. She showed psychomotor retardation but no abnormal involuntary movements. Her speech was spontaneous with normal rate and slightly decreased volume. Affect was anxious but stable and appropriate. She denied suicidal ideation, wishes or homicidal ideation. She denied feeling hopeless, helpless or worthless. She did not express ideas reference, paranoid ideation, magical ideation or delusions. Her thinking was abstract and associations were coherent and logical. She denied hallucinations and did not appear to responding to internal stimuli.. IMPRESSIONS: She is a 34-year-old single female with history of opiate and alcohol use disorder. [facility] of n ausea, vomiting and shortness of breath and the contents of increasing use of alcohol over her 2-3 months prior to admission. The emergency room physician consulted psychiatry concerned about suicide ideation and possible suicide attempt. She described a history of depression and has been receiving treatment for depressive disordr make community psychiatrist. However, she denied history of suicide attempts or gestures. She denied that she had attempted suicide or made a suicide attempt prior to admission. She has markedly elevated lipase and amylase consistent with acute pancreatitis. She does not require transfer to inpatient psychiatric unit at this time. DIAGNOSIS: Opiate use disorder on his therapy, alcohol use disorder severe, rule out alcohol withdrawal, depressive disorder unspecified PLAN: Monitor for signs and symptoms of alcohol withdrawal including alcohol withdrawal delirium. Resume her outpatient dose of Suboxone once she is off when necessary morphine sulfate. I concur with the plan to hold her outpatient psychotropic medications. She should continue with outpatient psychiatric services after discharge. There is no indication for transfer to psychiatric un it. Psychiatry will sign off on the case. 09/01/19 13:49
--- NOTE | 2019-09-01 14:58 | P.CNPUL ---
History of Present Illness Consult date: 09/01/19 Reason for consult: other (Severe metabolic acidosis and shortness of breath.) Chief complaint: Vomiting, shortness of breath. History of present illness: This is a 34-year-old female with history of depression, mild intermittent asthma, patient presented to the ER with almost 2 days history of nausea vomiting and shortness of breath. Her symptoms have become much worse on presentation. Could not keep any food down or any liquid. Patient was also complaining of difficulty getting enough air. No wheezing, no chest pain, no fever, no chills, no hemoptysis. Vague chest discomfort was described. She had no melena, no hematemesis. No fever, no chills, she was complaining of frequent urination every 20 minutes. But she had no dysuria, no hematuria. Patient does admit to drinking alcohol daily for the last several years. Denies drinking any other liquids, patient denies drinking any windshield fluid or antifreeze. Upon presentation, the patient was found to have significant abnormal labs. And her bicarb was less than 5. Her pH was extremely low at 6.94 on a venous blood gas. Her pCO2 was 22. Her amylase and lipase were elevated. Liver enzymes were also elevated. Potassium was elevated at 6.1. Her drug screen was negative for salicylates, acetaminophen, alcohol, but it was positive for acetone. Considering the presentation, patient was treated with antizol, placed on sodium bicarb drip, and vascular surgery established a dialysis catheter and the patient was dialyzed based upon the recommendation of nephrology on the case. Patient was admitted to the ICU, kept on sodium bicarb drip, and I was asked to see her on consultation. During my evaluation, the patient was feeling much be tter, breathing a lot easier, she had no shortness of breath, no cough, no wheezing, no nausea, no vomiting, and her labs showed worsening lipase and amylase levels. Bicarb is up to 16. Sugar remained relatively normal. Blood sugar now is 110. And it was as high as 170 on presentation. Patient was seen by psychiatry since admission, and it was felt that the patient has mostly history of opiate and alcohol use disorder. Patient never had any suicidal attempts or gestures. And the patient was not felt to be suicidal at this point. Review of Systems Constitutional: Negative Eyes: Negative ENT: Negative Pulmonary: Occasional cough, shortness of breath on presentation. No wheezing. GI: Nausea vomiting and vague abdominal pain. Genitourinary: Frequent urination but no hematuria and no dysuria. Musculoskeletal: Negative Skin: Negative Psychiatric: History of opiate abuse and alcohol abuse Hematologic: Negative Neurologic: Negative Endocrine: Negative. Past Medical History Past Medical History: Asthma Additional Past Medical History / Comment(s): Broken middle finger R hand History of Any Multi-Drug Resistant Organisms: None Reported Past Surgical History: Cholecystectomy Past Anesthesia/Blood Transfusion Reactions: No Reported Reaction Past Psychological History: Anxiety, Depression Smoking Status: Current some day smoker Past Alcohol Use History: Heavy Past Drug Use History: None Reported Medications and Allergies Home Medications Medication Instructions Recorded Confirmed Type Albuterol Inhaler [Ventolin Hfa 2 puff INHALATION RT-Q6H PRN 08/31/19 08/31/19 History Inhaler] Buprenorphine HCl/Naloxone HCl 0.5 film SL HS 08/31/19 08/31/19 History [Suboxone 4 mg-1 mg Sl Film] Buprenorphine HCl/Naloxone HCl 1 film SL DAILY 08/31/19 08/31/19 History [Suboxone 4 mg-1 mg Sl Film] Venlafaxine HCl [Effexor XR] 37.5 mg PO DAILY 08/31/19 08/31/19 History busPIRone HCL 15 mg PO BID 08/31/19 08/31/19 History lamoTRIgine [LaMICtal] 50 mg PO BID 08/31/19 08/31/19 History Allergies Allergy/AdvReac Type Severity Reaction Status Date / Time No Known Allergies Allergy Verified 08/31/19 22:21 Physical Exam Vitals: Vital Signs Temp Pulse Pulse Resp BP BP Pulse Ox 09/01/19 11:09 107 H 15 09/01/19 10:45 107 H 15 96 09/01/19 10:33 107 H 18 96 09/01/19 10:00 107 H 16 116/72 96 09/01/19 09:00 110 H 14 119/70 96 09/01/19 08:00 99.5 F 107 H 15 124/71 96 09/01/19 07:58 97.8 F 118 H 14 126/78 09/01/19 07:30 99.3 F 97 18 127/83 97 09/01/19 07:10 112 H 16 126/76 96 05/18/20 07:00 116 H 17 126/78 96 051820 06:50 130 H 31 H 125/80 95 051820 06:40 122 H 20 135/88 94 L 20 06:30 126 H 18 140/87 95 20 06:29 99.5 F 128 H 20 135/88 94 L 1820 06:20 121 H 15 136/86 95 0520 06:10 123 H 17 144/89 95 20 06:00 123 H 121 H 17 136/89 95 0520 05:50 120 H 18 140/85 94 L 20 05:40 117 H 18 131/91 94 L 09/01/19 05:30 116 H 21 145/93 94 L 09/01/19 05:20 120 H 20 151/93 93 L 09/01/19 05:10 121 H 21 156/101 94 L 09/01/19 05:00 113 H 120 H 27 H 151/99 95 09/01/19 04:50 110 H 17 161/97 96 20 04:40 99.2 F 125 H 20 154/87 94 L 20 04:30 129 H 21 161/94 95 051820 04:20 130 H 19 161/91 96 09/01/19 04:10 134 H 23 147/91 97 1820 04:00 134 H 20 145/108 97 051820 03:50 135 H 21 145/108 96 051820 03:48 135 H 20 145/108 96 051820 03:45 145/108 051820 03:40 137 H 051820 03:30 152/98 0518/20 03:15 152/98 0518/20 03:00 98.7 F 133/97 051820 02:45 155/103 051820 02:36 140 H 28 H 158/94 96 051820 02:30 158/94 051820 02:21 97.7 F 140 H 28 H 150/107 98 05/18/20 02:15 150/107 0520 02:00 138 H 28 H 146/97 97 051820 01:31 130 H 05/18/20 01:20 120 H 09/01/19 01:02 98.5 F 142 H 28 H 150/102 97 09/01/19 00:50 144 H 08/31/19 22:30 118 H 28 H 170/123 08/31/19 22:11 118 H 26 H 166/105 98 08/31/19 22:00 160 H 08/31/19 21:56 119 H 24 156/101 98 08/31/19 21:28 97.4 F L 124 H 20 149/89 99 Intake and Output 08/31/19 09/01/19 09/01/19 22:59 06:59 14:59 Intake Total 615 Output Total 1150 960 Balance -1150 -345 Intake: IV 615 Dextrose 5% in Water 1, 240 000 ml @ 80 mls/hr IV . [id number] DOUG with Sodium Bicarb (1 Meq/ml) 150 ml Rx#:[id number] Sodium Phosphate 10 mmol 375 In Sodium Chloride 0.9% 250 ml @ 125 mls/hr IVPB Q2H DOUG Rx#:[id number] Output: Urine 1150 960 Hemodialysis 0 Other: Voiding Method Indwelling Catheter Indwelling Catheter Weight 79.379 kg 87.9 kg Physical Exam: Revealed a 54-year-old female in no distress. Head: Atraumatic, normocephalic. HEENT:[Neck is supple.] [No neck masses.] [No thyromegaly.] [No JVD.] Chest: [Clear throughout, no crackles, no rhonchi, no wheezes.] Cardiac Exam: [Normal S1 and S2, no S3 gallop, no murmur.] Abdomen: [Soft, nontender, no megaly, no rebound, no guarding, normal bowel sounds.] Extremities: [No clubbing, no edema, no cyanosis.] Neurological Exam: [No focal neurologic deficit.] Alert and oriented 3. Psychiatric: Normal mood, affect and normal mental status examination. Skin: No rashes. Lymphatics: No lymphadenopathy. Results - Laboratory Findings CBC and BMP: 09/01/19 08:38 09/01/19 08:38 PT/INR, D-dimer PT 9.8 sec (9.0-12.0) 08/31/19 21:57 INR 0.9 (<1.2) 08/31/19 21:57 Abnormal lab findings: Abnormal Labs 08/31/19 08/31/19 08/31/19 21:46 21:57 21:57 WBC 13.0 H Hct 54.3 H MCV 113.6 H MCHC 28.8 L RDW 15.6 H Plt Count Neutrophils # Neutrophils # (Manual) 10.70 H Lymphocytes # Metamyelocytes # (Man) 0.26 H Macrocytosis Marked A VBG pH VBG pCO2 VBG HCO3 Sodium 136 L Potassium 6.1 H* Chloride Carbon Dioxide <5 L* BUN Creatinine Glucose 170 H POC Glucose (mg/dL) 170 H Osmolality Calcium Phosphorus Magnesium 2.6 H Total Bilirubin 1.6 H AST 252 H ALT 83 H Alkaline Phosphatase 353 H Total Protein 9.6 H Albumin 5.7 H Amylase 119 H Lipase 626 H Urine Protein Urine Ketones Urine Blood Urine RBC Urine Bacteria Urine Mucus 08/31/19 08/31/19 08/31/19 21:57 23:52 23:52 WBC Hct MCV MCHC RDW Plt Count Neutrophils # Neutrophils # (Manual) Lymphocytes # Metamyelocytes # (Man) Macrocytosis VBG pH 6.94 L* VBG pCO2 22 L VBG HCO3 5 L* Sodium Potassium Chloride Carbon Dioxide BUN Creatinine Glucose POC Glucose (mg/dL) Osmolality 311 H Calcium Phosphorus 6.1 H Magnesium 2.4 H Total Bilirubin AST ALT Alkaline Phosphatase Total Protein Albumin Amylase Lipase Urine Protein Urine Ketones Urine Blood Urine RBC Urine Bacteria Urine Mucus 09/01/19 09/01/19 09/01/19 00:35 07:56 08:38 WBC 11.8 H Hct MCV 106.4 H D MCHC RDW Plt Count 97 L Neutrophils # 10.7 H Neutrophils # (Manual) Lymphocytes # 0.6 L Metamyelocytes # (Man) Macrocytosis VBG pH VBG pCO2 VBG HCO3 Sodium Potassium Chloride Carbon Dioxide BUN Creatinine Glucose POC Glucose (mg/dL) 110 H Osmolality Calcium Phosphorus Magnesium Total Bilirubin AST ALT Alkaline Phosphatase Total Protein Albumin Amylase Lipase Urine Protein 2+ H Urine Ketones 4+ H Urine Blood Large H Urine RBC 31 H Urine Bacteria Rare H Urine Mucus Rare H 09/01/19 09/01/19 08:38 08:38 WBC Hct MCV MCHC RDW Plt Count Neutrophils # Neutrophils # (Manual) Lymphocytes # Metamyelocytes # (Man) Macrocytosis VBG pH VBG pCO2 30 L VBG HCO3 18 L Sodium 132 L Potassium 3.4 L Chloride 92 L Carbon Dioxide 16 L BUN 2 L Creatinine 0.48 L Glucose 110 H POC Glucose (mg/dL) Osmolality Calcium 7.8 L Phosphorus 0.9 L* Magnesium 1.5 L Total Bilirubin 1.6 H AST 160 H ALT 57 H Alkaline Phosphatase 240 H Total Protein Albumin Amylase 437 H* Lipase 8932 H Urine Protein Urine Ketones Urine Blood Urine RBC Urine Bacteria Urine Mucus - Diagnostic Findings Chest x-ray: image reviewed (Normal chest x-ray.) Assessment and Plan Assessment: Impression: Acute pancreatitis with nausea vomiting and abdominal pain. Acute on iron gap metabolic acidosis possible toxic alcohol ingestion./Methanol Although patient had no osmolar gap noted after calculating her actual osmolality. Patient seems to be responding to dialysis and to sodium bicarb drip. Doubt serotonin syndrome. Acute hyperkalemia secondary to metabolic acidosis. History of depression. History of opiate abuse. Recommendation: Continue present supportive care measures. Continue sodium bicarb drip and IV fluids. Continue to monitor electrolytes and renal profile. Continued to keep the patient nothing by mouth for now. Monitor liver enzymes and lipase and malaise. Will monitor in the ICU over the next 24 hours. We'll continue to follow. Time with Patient: Greater than 30
[2019-09-01 15:46] LABS: Ethanol Negative (Negative); Ethylene Glycol Negative (Negative); Isopropanol Negative (Negative)
[2019-09-01] MEDS: DEXTROSE 5% IN WATER 1,000 ML with SODIUM BICARB (1 MEQ/ML) 150 ML IV SCH (16:44)
[2019-09-01] MEDS ORDERED: Potassium Replacement Protocol 1 EACH MISC MISCELLANE PRN (17:26)
[2019-09-01] MEDS: POTASSIUM CHLORIDE ER 20 MEQ TAB.ER PO SCH ×4 (18:00→22:31)
[2019-09-01] MEDS: MAGNESIUM SULFATE-D5W PMX 1 GM in DEXTROSE/WATER 1 100ML.BAG IVPB SCH ×2 (18:01→20:27)
[2019-09-01] MEDS: DEXTROSE 5%-0.9% NACL 1,000 ML IV SCH (18:20)
[2019-09-01] MEDS: THIAMINE 100 MG/ML 2 ML VIAL IVP SCH (18:52)
[2019-09-01 20:20] LABS: African American GFR (CKD) >90 (>60 ml/min/1.73 sqM); Anion Gap 13 mmol/L; Blood Urea Nitrogen 6 mg/dL (7-17); Calcium 7.5 mg/dL (8.4-10.2); Carbon Dioxide 22 mmol/L (22-30); Chloride 96 mmol/L (98-107); Glucose 126 mg/dL (74-99); Non-African American GFR(CKD) >90 (>60 ml/min/1.73 sqM); Potassium 3.1 mmol/L (3.5-5.1); Sodium 131 mmol/L (137-145)
[2019-09-01 20:21] LABS: Glucose,Whole Blood 146 mg/dL (75-99)
--- NOTE | 2019-09-01 20:26 | P.PN ---
Progress Note - Text Progress Note Date: 09/01/19 after reviewing the chart,clinical history,labs,I felt this mostly consiistent with alcoholic ketoacidosis/AKA.not ethylene glycol and not methanol toxicicity
--- NOTE | 2019-09-01 20:50 | P.HPIM ---
History of Present Illness H&P Date: 09/01/19 Chief Complaint: Nausea vomiting and shortness of breath Patient is a 34-year-old female with a known history of asthma, anxiety/depression, ongoing nicotine addiction, daily heavy alcohol use came to ER with the complaints of nausea vomiting and shortness of breath x1 day prior to admission. Patient was has been sick with intractable vomiting and unable to keep down fluids or solids. Patient states that she started to feel short of breath like she was not getting enough air. She was also having midsternal chest discomfort along with the shortness of breath. Otherwise denies any cough or sputum production. No fever no chills. Denied any hematemesis or melena. Patient is also complaints that she has been urinating frequently every 20 minutes. Denied any dysuria or hematuria. Denied any history of diabetes. Patient states that she has been drinking daily for the past several years. Upon presentation patient was found to have bicarb level less than 5 and severely acidotic. Hemodialysis catheter was placed and patient was started on hemodialysis and was transferred to MICU. Patient is also on bicarb drip. Laboratory data showed WBC 13.0, hemoglobin 15.7, MCV 113.6, platelets 174 and RDW 15.6 Sodium 136, potassium 6.1, chloride 101 and bicarb less than 5 Blood sugar was 170 BUN 9 and creatinine 1.01 Osmolality 311 Liver is elevated with rest the AST to 52, ALT 83 and alk phos 353 lipase level is 626 Lactic acid 1.4, acetone positive Hepatitis acute negative panel UA negative for infection. Chest x-ray showed normal chest normal heart. EKG showed sinus tachycardia Patient is a poor historian. Review of Systems Constitutional: denied fevers and chills.. No generalized weakness or weight loss. Abdomen: Patient does have intractable nausea vomiting. No abdominal pain. Cardiovascular: Patient denies any chest pain or short of breath no palp itations. Respiratory: patient denied any cough is from production. No shortness of breath Neurologic: Patient denied any numbness or tingling headache. Musculoskeletal: Patient denies any complaints of joint swelling or deformity. Complete review of systems could not be obtained from the patient. Past Medical History Past Medical History: Asthma Additional Past Medical History / Comment(s): Broken middle finger R hand History of Any Multi-Drug Resistant Organisms: None Reported Past Surgical History: Cholecystectomy Past Anesthesia/Blood Transfusion Reactions: No Reported Reaction Past Psychological History: Anxiety, Depression Smoking Status: Current some day smoker Past Alcohol Use History: Heavy Past Drug Use History: None Reported Medications and Allergies Home Medications Medication Instructions Recorded Confirmed Type Albuterol Inhaler [Ventolin Hfa 2 puff INHALATION RT-Q6H PRN 08/31/19 08/31/19 History Inhaler] Buprenorphine HCl/Naloxone HCl 0.5 film SL HS 08/31/19 08/31/19 History [Suboxone 4 mg-1 mg Sl Film] Buprenorphine HCl/Naloxone HCl 1 film SL DAILY 08/31/19 08/31/19 History [Suboxone 4 mg-1 mg Sl Film] Venlafaxine HCl [Effexor XR] 37.5 mg PO DAILY 08/31/19 08/31/19 History busPIRone HCL 15 mg PO BID 08/31/19 08/31/19 History lamoTRIgine [LaMICtal] 50 mg PO BID 08/31/19 08/31/19 History Allergies Allergy/AdvReac Type Severity Reaction Status Date / Time No Known Allergies Allergy Verified 08/31/19 22:21 Physical Exam Vitals: Vital Signs Temp Pulse Pulse Resp BP BP Pulse Ox 09/01/19 07:58 97.8 F 118 H 14 126/78 09/01/19 07:30 99.3 F 97 18 127/83 97 09/01/19 07:10 112 H 16 126/76 96 09/01/19 07:00 116 H 17 126/78 96 09/01/19 06:50 130 H 31 H 125/80 95 09/01/19 06:40 122 H 20 135/88 94 L 09/01/19 06:30 126 H 18 140/87 95 09/01/19 06:29 99.5 F 128 H 20 135/88 94 L 09/01/19 06:20 121 H 15 136/86 95 09/01/19 06:10 123 H 17 144/89 95 09/01/19 06:00 123 H 121 H 17 136/89 95 09/01/19 05:50 120 H 18 140/85 94 L 09/01/19 05:40 117 H 18 131/91 94 L 09/01/19 05:30 116 H 21 145/93 94 L 09/01/19 05:20 120 H 20 151/93 93 L 09/01/19 05:10 121 H 21 156/101 94 L 09/01/19 05:00 113 H 120 H 27 H 151/99 95 09/01/19 04:50 110 H 17 161/97 96 09/01/19 04:40 99.2 F 125 H 20 154/87 94 L 09/01/19 04:30 129 H 21 161/94 95 09/01/19 04:20 130 H 19 161/91 96 09/01/19 04:10 134 H 23 147/91 97 09/01/19 04:00 134 H 20 145/108 97 09/01/19 03:50 135 H 21 145/108 96 09/01/19 03:48 135 H 20 145/108 96 09/01/19 03:45 145/108 09/01/19 03:40 137 H 09/01/19 03:30 152/98 09/01/19 03:15 152/98 09/01/19 03:00 98.7 F 133/97 09/01/19 02:45 155/103 09/01/19 02:36 140 H 28 H 158/94 96 09/01/19 02:30 158/94 09/01/19 02:21 97.7 F 140 H 28 H 150/107 98 09/01/19 02:15 150/107 09/01/19 02:00 138 H 28 H 146/97 97 09/01/19 01:31 130 H 09/01/19 01:20 120 H 09/01/19 01:02 98.5 F 142 H 28 H 150/102 97 09/01/19 00:50 144 H 08/31/19 22:30 118 H 28 H 170/123 08/31/19 22:11 118 H 26 H 166/105 98 08/31/19 22:00 160 H 08/31/19 21:56 119 H 24 156/101 98 08/31/19 21:28 97.4 F L 124 H 20 149/89 99 Intake and Output 08/31/19 09/01/19 09/01/19 22:59 06:59 14:59 Output Total 1150 0 Balance -1150 0 Output: Urine 1150 Hemodialysis 0 Other: Voiding Method Indwelling Catheter Weight 79.379 kg 87.9 kg PHYSICAL EXAMINATION: Patient is lying in the bed comfortably, no acute distress, awake alert and oriented.Lethargic and drowsy. . HEENT: Normocephalic. Neck is supple. Pupils reactive. Nostrils clear. Oral cavity is moist. Ears reveal no drainage. Neck reveals no JVD, carotid bruits, or thyromegaly. CHEST EXAMINATION: Trachea is central. Symmetrical expansion. Bibasilar diminished air entry. Lung hansen clear to auscultation and percussion. CARDIAC: Normal S1, S2 with no gallops. No murmurs ABDOMEN: Soft. Bowel sounds normal. No organomegaly. No abdominal bruits. Extremities: reveal no edema. No clubbing or cyanosis Neurologically awake, alert, oriented x3 with well-coordinated movements. No focal deficits noted Skin: No rash or skin lesions. Psychiatric: Coperative. Denied any Susa radiation. Musculoskeletal: No joint swelling or deformity. Normal range of motion. Results CBC & Chem 7: 09/01/19 08:38 09/01/19 19:58 Labs: Abnormal Lab Results - Last 24 Hours (Table) 08/31/19 08/31/19 08/31/19 Range/Units 21:46 21:57 21:57 WBC 13.0 H (3.8-10.6) k/uL Hct 54.3 H (34.0-46.0) % MCV 113.6 H (80.0-100.0) fL MCHC 28.8 L (31.0-37.0) g/dL RDW 15.6 H (11.5-15.5) % Plt Count (150-450) k/uL Neutrophils # (1.3-7.7) k/uL Neutrophils # (Manual) 10.70 H (1.3-7.7) k/uL Lymphocytes # (1.0-4.8) k/uL Metamyelocytes # (Man) 0.26 H (0) k/uL Macrocytosis Marked A VBG pH (7.31-7.41) VBG pCO2 (37-51) mmHg VBG HCO3 (24-28) mmol/L Sodium 136 L (137-145) mmol/L Potassium 6.1 H* (3.5-5.1) mmol/L Chloride (98-107) mmol/L Carbon Dioxide <5 L* (22-30) mmol/L BUN (7-17) mg/dL Creatinine (0.52-1.04) mg/dL Glucose 170 H (74-99) mg/dL POC Glucose (mg/dL) 170 H (75-99) mg/dL Osmolality (280-301) mosm/kg Calcium (8.4-10.2) mg/dL Phosphorus (2.5-4.5) mg/dL Magnesium 2.6 H (1.6-2.3) mg/dL Total Bilirubin 1.6 H (0.2-1.3) mg/dL AST 252 H (14-36) U/L ALT 83 H (4-34) U/L Alkaline Phosphatase 353 H (38-126) U/L Total Protein 9.6 H (6.3-8.2) g/dL Albumin 5.7 H (3.5-5.0) g/dL Amylase 119 H (30-110) U/L Lipase 626 H (23-300) U/L Urine Protein (Negative) Urine Ketones (Negative) Urine Blood (Negative) Urine RBC (0-5) /hpf Urine Bacteria (None) /hpf Urine Mucus (None) /hpf 08/31/19 08/31/19 08/31/19 Range/Units 21:57 23:52 23:52 WBC (3.8-10.6) k/uL Hct (34.0-46.0) % MCV (80.0-100.0) fL MCHC (31.0-37.0) g/dL RDW (11.5-15.5) % Plt Count (150-450) k/uL Neutrophils # (1.3-7.7) k/uL Neutrophils # (Manual) (1.3-7.7) k/uL Lymphocytes # (1.0-4.8) k/uL Metamyelocytes # (Man) (0) k/uL Macrocytosis VBG pH 6.94 L* (7.31-7.41) VBG pCO2 22 L (37-51) mmHg VBG HCO3 5 L* (24-28) mmol/L Sodium (137-145) mmol/L Potassium (3.5-5.1) mmol/L Chloride (98-107) mmol/L Carbon Dioxide (22-30) mmol/L BUN (7-17) mg/dL Creatinine (0.52-1.04) mg/dL Glucose (74-99) mg/dL POC Glucose (mg/dL) (75-99) mg/dL Osmolality 311 H (280-301) mosm/kg Calcium (8.4-10.2) mg/dL Phosphorus 6.1 H (2.5-4.5) mg/dL Magnesium 2.4 H (1.6-2.3) mg/dL Total Bilirubin (0.2-1.3) mg/dL AST (14-36) U/L ALT (4-34) U/L Alkaline Phosphatase (38-126) U/L Total Protein (6.3-8.2) g/dL Albumin (3.5-5.0) g/dL Amylase (30-110) U/L Lipase (23-300) U/L Urine Protein (Negative) Urine Ketones (Negative) Urine Blood (Negative) Urine RBC (0-5) /hpf Urine Bacteria (None) /hpf Urine Mucus (None) /hpf 09/01/19 09/01/19 09/01/19 Range/Units 00:35 07:56 08:38 WBC 11.8 H (3.8-10.6) k/uL Hct (34.0-46.0) % MCV 106.4 H D (80.0-100.0) fL MCHC (31.0-37.0) g/dL RDW (11.5-15.5) % Plt Count 97 L (150-450) k/uL Neutrophils # 10.7 H (1.3-7.7) k/uL Neutrophils # (Manual) (1.3-7.7) k/uL Lymphocytes # 0.6 L (1.0-4.8) k/uL Metamyelocytes # (Man) (0) k/uL Macrocytosis VBG pH (7.31-7.41) VBG pCO2 (37-51) mmHg VBG HCO3 (24-28) mmol/L Sodium (137-145) mmol/L Potassium (3.5-5.1) mmol/L Chloride (98-107) mmol/L Carbon Dioxide (22-30) mmol/L BUN (7-17) mg/dL Creatinine (0.52-1.04) mg/dL Glucose (74-99) mg/dL POC Glucose (mg/dL) 110 H (75-99) mg/dL Osmolality (280-301) mosm/kg Calcium (8.4-10.2) mg/dL Phosphorus (2.5-4.5) mg/dL Magnesium (1.6-2.3) mg/dL Total Bilirubin (0.2-1.3) mg/dL AST (14-36) U/L ALT (4-34) U/L Alkaline Phosphatase (38-126) U/L Total Protein (6.3-8.2) g/dL Albumin (3.5-5.0) g/dL Amylase (30-110) U/L Lipase (23-300) U/L Urine Protein 2+ H (Negative) Urine Ketones 4+ H (Negative) Urine Blood Large H (Negative) Urine RBC 31 H (0-5) /hpf Urine Bacteria Rare H (None) /hpf Urine Mucus Rare H (None) /hpf 09/01/19 09/01/19 Range/Units 08:38 08:38 WBC (3.8-10.6) k/uL Hct (34.0-46.0) % MCV (80.0-100.0) fL MCHC (31.0-37.0) g/dL RDW (11.5-15.5) % Plt Count (150-450) k/uL Neutrophils # (1.3-7.7) k/uL Neutrophils # (Manual) (1.3-7.7) k/uL Lymphocytes # (1.0-4.8) k/uL Metamyelocytes # (Man) (0) k/uL Macrocytosis VBG pH (7.31-7.41) VBG pCO2 30 L (37-51) mmHg VBG HCO3 18 L (24-28) mmol/L Sodium 132 L (137-145) mmol/L Potassium 3.4 L (3.5-5.1) mmol/L Chloride 92 L (98-107) mmol/L Carbon Dioxide 16 L (22-30) mmol/L BUN 2 L (7-17) mg/dL Creatinine 0.48 L (0.52-1.04) mg/dL Glucose 110 H (74-99) mg/dL POC Glucose (mg/dL) (75-99) mg/dL Osmolality (280-301) mosm/kg Calcium 7.8 L (8.4-10.2) mg/dL Phosphorus 0.9 L* (2.5-4.5) mg/dL Magnesium 1.5 L (1.6-2.3) mg/dL Total Bilirubin 1.6 H (0.2-1.3) mg/dL AST 160 H (14-36) U/L ALT 57 H (4-34) U/L Alkaline Phosphatase 240 H (38-126) U/L Total Protein (6.3-8.2) g/dL Albumin (3.5-5.0) g/dL Amylase 437 H* (30-110) U/L Lipase 8932 H (23-300) U/L Urine Protein (Negative) Urine Ketones (Negative) Urine Blood (Negative) Urine RBC (0-5) /hpf Urine Bacteria (None) /hpf Urine Mucus (None) /hpf Thrombosis Risk Factor Assmnt - DVT/VTE Prophylaxis DVT/VTE Prophylaxis: Pharmacologic Prophylaxis ordered - Choose All That Apply Each Factor Represents 1 point: Medical pt on bed rest, Obesity (BMI >25) Thrombosis Risk Factor Assessment Total Risk Factor Score: 2 Thrombosis Risk Factor Assessment Level: Low Risk Assessment and Plan Assessment: Severe anion gap metabolic acidosis. Started on emergent hemodialysis. Acute alcoholic pancreatitis Alcoholic hepatitis Intractable nausea vomiting Hypokalemia with potassium level 6.1 due to acidosis Anxiety/depression Ongoing nicotine addiction Daily heavy alcohol use Hypokalemia, hypomagnesemia, hypophosphatemia. Replaced. DVT prophylaxis Plan: Patient underwent emergent hemodialysis and symptomatically is improving. Patient is being continued on bicarb drip and IV hydration. Monitor liver enzymes and alk phos levels as well as lipase level. Will check A1c level. Patient was seen by psychiatry due to major depression and recommends no inpatient psych admission at this time. c/w thiamine and FA, Pulmonary is following. Further recommendations based on the clinical course. Time with Patient: Greater than 30
--- NOTE | 2019-09-01 22:10 | CONS ---
CONSULTATION REASON FOR CONSULT: Severe metabolic acidosis. HISTORY OF PRESENT ILLNESS: The patient is a 34-year-old female who was admitted from the emergency room with complaints of nausea, vomiting, feeling tired and extreme weakness. Patient did not admit to ingestion of any alcohol recently. However, she did admit to drinking regular alcohol until about 2 days ago. Patient was found to have severe metabolic acidosis with CO2 of less than 5. The alcohol panel was sent out and it was pending; and given the patient's severe metabolic acidosis and elevated osmolar gap, the patient was dialyzed last night. She is currently improved. CO2 is at 16. She is maintained on bicarb drip. Serum creatinine was at 1.0 mg/dL. Potassium was 6.1 on initial admission. Serum acetone was positive and urinary acetone was also positive. PAST MEDICAL HISTORY: Significant for asthma, anxiety, depression. PAST SURGICAL HISTORY: Cholecystectomy. SOCIAL HISTORY: The patient is a current everyday smoker. Patient's social history is also positive for heavy consumption of alcohol. MEDICATIONS: Medications at home included naloxone, Effexor, Lamictal. ALLERGIES: NONE. REVIEW OF SYSTEMS: As per HPI. Other systems all negative. PHYSICAL EXAMINATION: Patient is comfortable, awake. She is alert and oriented x3, not in any acute distress. Blood pressure was 114/69, heart rate of 105 per minute. Patient is afebrile. EXAMINATION OF THE HEART: S1 and S2. EXAMINATION OF LUNGS: Bilateral breath sounds are heard. ABDOMEN: Soft, non-tender. No rashes are noted. [employer] exam is grossly intact. LABS: Sodium 132, potassium 3.4, chloride 92, BUN 2, serum creatinine 0.48 after dialysis. Lipase 8932, amylase 437. UA shows 2+ protein, 4+ ketones, 31 RBCs. ASSESSMENT: 1. Severe metabolic acidosis, anion gap, with elevated osmolar gap as well with positive acetone and, given the strong history of alcohol abuse, patient was dialyzed last night. She also received fomepizole as a precautionary step. This morning the acidosis has improved significantly. Patient is feeling better. She will likely not need any further dialysis. There is no history of diabetes. Blood sugar was elevated at 170 on initial admission. 2. Hyperkalemia associated with acute kidney injury, severe metabolic acidosis, currently improved. 3. Elevated lipase suggesting acute pancreatitis, possibly related to alcohol consumption. PLAN: Continue with bicarb drip. Patient will likely not need any further dialysis. The organic alcohol panel is currently pending. Thank you for this consultation. Will continue to follow the patient with you during her hospitalization. DEBRA / BABATUNDEN: [id number] /
[2019-09-02 00:51] LABS: African American GFR (CKD) >90 (>60 ml/min/1.73 sqM); Anion Gap 13 mmol/L; Blood Urea Nitrogen 5 mg/dL (7-17); Carbon Dioxide 24 mmol/L (22-30); Chloride 96 mmol/L (98-107); Glucose 106 mg/dL (74-99); Non-African American GFR(CKD) >90 (>60 ml/min/1.73 sqM); Potassium 3.4 mmol/L (3.5-5.1); Sodium 133 mmol/L (137-145)
[2019-09-02 04:48] LABS: ALT 44 U/L (4-34); AST 107 U/L (14-36); African American GFR (CKD) >90 (>60 ml/min/1.73 sqM); Albumin 3.8 g/dL (3.5-5.0); Alkaline Phosphatase 190 U/L (38-126); Anion Gap 8 mmol/L; Blood Urea Nitrogen 4 mg/dL (7-17); Calcium 8.2 mg/dL (8.4-10.2); Carbon Dioxide 25 mmol/L (22-30); Chloride 101 mmol/L (98-107); Glucose 114 mg/dL (74-99); Magnesium 2.4 mg/dL (1.6-2.3); Non-African American GFR(CKD) >90 (>60 ml/min/1.73 sqM); Sodium 134 mmol/L (137-145); Total Bilirubin 1.1 mg/dL (0.2-1.3); Total Protein 6.7 g/dL (6.3-8.2)
[2019-09-02 05:09] LABS: Basophils % (A) 0 %; Eosinophils # (A) 0.1 k/uL (0-0.7); Eosinophils % (A) 2 %; HCT 39.4 % (34.0-46.0); HGB 12.9 gm/dL (11.4-16.0); Lymphocytes # (A) 0.7 k/uL (1.0-4.8); Lymphocytes % (A) 12 %; MCH 33.6 pg (25.0-35.0); MCHC 32.7 g/dL (31.0-37.0); MCV 102.8 fL (80.0-100.0); Macrocytosis Slight; Mean Platelet Volume 9.9; Monocytes # (A) 0.3 k/uL (0-1.0); Monocytes % (A) 5 %; Neutrophils # (A) 4.8 k/uL (1.3-7.7); Neutrophils % (A) 80 %; RBC 3.83 m/uL (3.80-5.40); RDW 15.2 % (11.5-15.5); WBC 5.9 k/uL (3.8-10.6)
[2019-09-02 05:42] LABS: Large Platelets Present
[2019-09-02 05:43] LABS: Anisocytosis (M) Present; Platelet Count 39 k/uL (150-450)
[2019-09-02 05:45] LABS: Potassium 3.8 mmol/L (3.5-5.1)
[2019-09-02] MEDS ORDERED: Potassium Replacement Protocol 1 EACH MISC MISCELLANE PRN (06:00)
[2019-09-02] MEDS ORDERED: POTASSIUM CHLORIDE ER 20 MEQ TAB.ER PO SCH (06:00)
[2019-09-02] MEDS: DEXTROSE 5%-0.9% NACL 1,000 ML IV SCH ×3 (06:34→21:13)
[2019-09-02] MEDS: SODIUM PHOSPHATE 10 MMOL in SODIUM CHLORIDE 0.9% 250 ML IVPB SCH ×5 (06:43→21:12)
[2019-09-02] MEDS: THIAMINE 100 MG/ML 2 ML VIAL IVP SCH (08:00)
[2019-09-02] MEDS: PANTOPRAZOLE 40 MG/10 ML VIAL IV SCH (08:56)
[2019-09-02] MEDS: FOLIC ACID 1 MG TAB PO SCH ×2 (08:56→09:00)
[2019-09-02 08:58] LABS: Potassium 3.3 mmol/L (3.5-5.1)
[2019-09-02 08:59] LABS: African American GFR (CKD) >90 (>60 ml/min/1.73 sqM); Anion Gap 11 mmol/L; Blood Urea Nitrogen 4 mg/dL (7-17); Calcium 8.1 mg/dL (8.4-10.2); Carbon Dioxide 22 mmol/L (22-30); Chloride 102 mmol/L (98-107); Glucose 117 mg/dL (74-99); Non-African American GFR(CKD) >90 (>60 ml/min/1.73 sqM); Sodium 135 mmol/L (137-145)
--- NOTE | 2019-09-02 09:49 | P.PN ---
Subjective Progress Note Date: 09/02/19 Principal diagnosis: Acute metabolic acidosis Patient was seen this morning in the ICU. She is doing better since admission and per nursing may not need dialysis due to her numbers improving. No issues with catheter and dialysis went well when used. Objective - Vital Signs Vital signs: Vital Signs Temp 99.1 F 09/02/19 04:00 Pulse 88 09/02/19 07:00 Resp 16 09/02/19 07:00 BP 137/86 09/02/19 07:00 Pulse Ox 98 09/02/19 07:00 Intake & Output 09/01/19 09/02/19 09/02/19 18:59 06:59 18:59 Intake Total 1315 1540 Output Total 1425 1035 Balance -110 505 Weight 89 kg Intake: IV 1315 1540 Dextrose 5% in Water 1, 320 000 ml @ 80 mls/hr IV . [id number] DOUG with Sodium Bicarb (1 Meq/ml) 150 ml Rx#:[id number] Dextrose 5%-0.9% NaCl 1, 120 1440 000 ml @ 120 mls/hr IV . [id number] DOUG Rx#:[id number] Magnesium Sulfate-D5w Pmx 100 1 gm In Dextrose/Water 1 100ml.bag @ 100 mls/hr IVPB Q1H DOUG Rx#: [id number] Sodium Phosphate 10 mmol 875 In Sodium Chloride 0.9% 250 ml @ 125 mls/hr IVPB Q2H DOUG Rx#:[id number] Output: Urine 1425 1035 Hemodialysis 0 Other: Voiding Method Indwelling Catheter Indwelling Catheter # Bowel Movements 1 - Exam femoral catheter is c/d/i - Labs CBC & Chem 7: 09/02/19 04:13 09/02/19 08:00 Labs: Abnormal Lab Results - Last 24 Hours (Table) 09/01/19 09/01/19 09/01/19 Range/Units 04:00 08:38 19:58 MCV (80.0-100.0) fL Plt Count (150-450) k/uL Lymphocytes # (1.0-4.8) k/uL VBG pCO2 30 L (37-51) mmHg VBG HCO3 18 L (24-28) mmol/L Sodium 131 L (137-145) mmol/L Potassium 3.1 L (3.5-5.1) mmol/L Chloride 96 L (98-107) mmol/L BUN 6 L (7-17) mg/dL Creatinine 0.41 L (0.52-1.04) mg/dL Glucose 126 H (74-99) mg/dL POC Glucose (mg/dL) (75-99) mg/dL Calcium 7.5 L (8.4-10.2) mg/dL Phosphorus (2.5-4.5) mg/dL Magnesium (1.6-2.3) mg/dL AST (14-36) U/L ALT (4-34) U/L Alkaline Phosphatase (38-126) U/L Acetone, Qual 34 H (Negative) mg/dL 09/01/19 09/01/19 09/02/19 Range/Units 20:18 23:47 04:13 MCV 102.8 H (80.0-100.0) fL Plt Count 39 L D (150-450) k/uL Lymphocytes # 0.7 L (1.0-4.8) k/uL VBG pCO2 (37-51) mmHg VBG HCO3 (24-28) mmol/L Sodium 133 L (137-145) mmol/L Potassium 3.4 L (3.5-5.1) mmol/L Chloride 96 L (98-107) mmol/L BUN 5 L (7-17) mg/dL Creatinine 0.41 L (0.52-1.04) mg/dL Glucose 106 H (74-99) mg/dL POC Glucose (mg/dL) 146 H (75-99) mg/dL Calcium 8.0 L (8.4-10.2) mg/dL Phosphorus (2.5-4.5) mg/dL Magnesium (1.6-2.3) mg/dL AST (14-36) U/L ALT (4-34) U/L Alkaline Phosphatase (38-126) U/L Acetone, Qual (Negative) mg/dL 09/02/19 09/02/19 09/02/19 Range/Units 04:13 05:04 08:00 MCV (80.0-100.0) fL Plt Count (150-450) k/uL Lymphocytes # (1.0-4.8) k/uL VBG pCO2 (37-51) mmHg VBG HCO3 (24-28) mmol/L Sodium 134 L 135 L (137-145) mmol/L Potassium 3.3 L (3.5-5.1) mmol/L Chloride (98-107) mmol/L BUN 4 L 4 L (7-17) mg/dL Creatinine 0.36 L 0.36 L (0.52-1.04) mg/dL Glucose 114 H 117 H (74-99) mg/dL POC Glucose (mg/dL) (75-99) mg/dL Calcium 8.2 L 8.1 L (8.4-10.2) mg/dL Phosphorus <0.5 L* (2.5-4.5) mg/dL Magnesium 2.4 H (1.6-2.3) mg/dL AST 107 H (14-36) U/L ALT 44 H (4-34) U/L Alkaline Phosphatase 190 H (38-126) U/L Acetone, Qual (Negative) mg/dL Microbiology - Last 24 Hours (Table) 08/31/19 23:52 Blood Culture - Preliminary Blood No Growth after 24 hours Assessment and Plan Assessment: 1. #1 Temp HD catheter placement 2. Hyperkalemia 3. Acute pancreatitis 4. Metabolic acidosis Plan: HD per nephrology
[2019-09-02 11:55] LABS: Glucose,Whole Blood 113 mg/dL (75-99)
[2019-09-02 12:02] LABS: African American GFR (CKD) >90 (>60 ml/min/1.73 sqM); Anion Gap 7 mmol/L; Blood Urea Nitrogen 4 mg/dL (7-17); Calcium 7.9 mg/dL (8.4-10.2); Carbon Dioxide 25 mmol/L (22-30); Chloride 102 mmol/L (98-107); Glucose 110 mg/dL (74-99); Non-African American GFR(CKD) >90 (>60 ml/min/1.73 sqM); Sodium 134 mmol/L (137-145)
--- NOTE | 2019-09-02 13:19 | P.PN ---
Subjective Progress Note Date: 09/02/19 Principal diagnosis: Alcoholic ketoacidosis This is a 34-year-old female with history of depression, mild intermittent asthma, patient presented to the ER with almost 2 days history of nausea vomiting and shortness of breath. Her symptoms have become much worse on presentation. Could not keep any food down or any liquid. Patient was also complaining of difficulty getting enough air. No wheezing, no chest pain, no fever, no chills, no hemoptysis. Vague chest discomfort was described. She had no melena, no hematemesis. No fever, no chills, she was complaining of frequent urination every 20 minutes. But she had no dysuria, no hematuria. Patient does admit to drinking alcohol daily for the last several years. Denies drinking any other liquids, patient denies drinking any windshield fluid or antifreeze. Upon presentation, the patient was found to have significant abnormal labs. And her bicarb was less than 5. Her pH was extremely low at 6.94 on a venous blood gas. Her pCO2 was 22. Her amylase and lipase were elevated. Liver enzymes were also elevated. Potassium was elevated at 6.1. Her drug screen was negative for salicylates, acetaminophen, alcohol, but it was positive for acetone. Considering the presentation, patient was treated with antizol, placed on sodium bicarb drip, and vascular surgery established a dialysis catheter and the patient was dialyzed based upon the recommendation of nephrology on the case. Patient was admitted to the ICU, kept on sodium bicarb drip, and I was asked to see her on consultation. During my evaluation, the patient was feeling much better, breathing a lot easier, she had no shortness of breath, no cough, no wheezing, no nausea, no vomiting, and her labs showed worsening lipase and amylase levels. Bicarb is up to 16. Sugar remained relatively normal. Blood sugar now is 110. And it was as high as 170 on presentation. Patient was seen by psychiatry since admission, and it was felt that the patient has mostly history of opiate and alcohol use disorder. Patient never had any suicidal attempts or gestures. And the patient was not felt to be suicidal at this point. Patient was reevaluated today on 09/02/19, remains in the ICU, she is presently on room air, her IV fluid is D5 0.9 at 1 20 mL per hour. Her oxygen saturation is 95% on room air. I have discontinued her sodium bicarb yesterday. And I have ordered a beta hydroxybutyrate level which is pending. After reviewing the whole clinical presentation on this patient, I strongly felt that the patient did not have ethylene glycol toxicity or methanol toxicity. Patient clearly had alcoholic ketoacidosis/AKA. Hence I have recommended aggressive correction of her electrolytes including low potassium and low magnesium. I have also recommended changing her IV fluid to D5 0.9 and thiamine to be given to this patient. Alcoholic ketoacidosis frequently seen in patients who've binge drink like our patient in this presentation. Patient was unable to tolerate oral nutrition for couple of days prior to presentation because she was experiencing nausea and vomiting. And she did have a bout of heavy drinking before the period of relative starvation. With persistent vomiting abdominal pain and this was contributing to inability to tolerate by mouth intake. Lack of nutrients other than alcohol causes the creation of ketones and elevated gap ketoacidosis in the absence of diabetes. Patient presented in a dehydrated state after a bout of heavy drinking and she had ongoing lack of oral intake. Hence she had low glycogen stores and lack of oral food intake shifts the metabolism from carbohydrates to Heather and lipids. Hence this leads to decreased insulin levels and increase in regulatory hormones such as cortisol and glucagon and epinephrine. And increase in the activity of lipase. All of these changes lead to conversion of acetyl acetate to beta hydroxybutyrate hence this will be the predominant ketoacid in AKA. And the level of beta hydroxybutyrate is pending on this patient. Typically patient would present with tachycardia, nausea vomiting, abdominal pain, dehydration, tachypnea secondary to acidosis and dehydration, and agitation. This is exactly how this patient presented initially to the ER. Treatment shifted to isotonic saline. With dextrose to break the cycle of ketogenesis and increase insulin secretion. And this will decrease counter regulatory hormone level and it is essential to administer thiamine. In the meantime continue to aggressively correct electrolytes, mostly calcium magnesium and phosphate. In the meantime the patient would have to be closely monitored for alcohol withdrawal and for alcohol withdrawal seizures. Objective - Vital Signs Vital signs: Vital Signs Temp 98.7 F 09/02/19 08:00 Pulse 93 09/02/19 11:00 Resp 10 L 09/02/19 11:00 BP 144/96 09/02/19 11:00 Pulse Ox 95 09/02/19 11:00 Intake & Output 09/01/19 09/02/19 09/02/19 18:59 06:59 18:59 Intake Total 1315 1540 375 Output Total 1425 1035 190 Balance -110 505 185 Weight 89 kg Intake: IV 1315 1540 375 Dextrose 5% in Water 1, 320 000 ml @ 80 mls/hr IV . [id number] DOUG with Sodium Bicarb (1 Meq/ml) 150 ml Rx#:[id number] Dextrose 5%-0.9% NaCl 1, 120 1440 000 ml @ 120 mls/hr IV . [id number] DOUG Rx#:[id number] Magnesium Sulfate-D5w Pmx 100 1 gm In Dextrose/Water 1 100ml.bag @ 100 mls/hr IVPB Q1H DOUG Rx#: [id number] Sodium Phosphate 10 mmol 875 375 In Sodium Chloride 0.9% 250 ml @ 125 mls/hr IVPB Q2H DOUG Rx#:[id number] Output: Urine 1425 1035 190 Hemodialysis 0 Other: Voiding Method Indwelling Catheter Indwelling Catheter Indwelling Catheter # Bowel Movements 1 - Exam Physical Exam: Revealed a 54-year-old female in no distress. Head: Atraumatic, normocephalic. HEENT:[Neck is supple.] [No neck masses.] [No thyromegaly.] [No JVD.] Chest: [Clear throughout, no crackles, no rhonchi, no wheezes.] Cardiac Exam: [Normal S1 and S2, no S3 gallop, no murmur.] Abdomen: [Soft, nontender, no megaly, no rebound, no guarding, normal bowel sounds.] Extremities: [No clubbing, no edema, no cyanosis.] Neurological Exam: [No focal neurologic deficit.] Alert and oriented 3. Psychiatric: Normal mood, affect and normal mental status examination. Skin: No rashes. Lymphatics: No lymphadenopathy. - Labs CBC & Chem 7: 09/02/19 04:13 09/02/19 11:41 Labs: Abnormal Lab Results - Last 24 Hours (Table) 09/01/19 09/01/19 09/01/19 Range/Units 04:00 19:58 20:18 MCV (80.0-100.0) fL Plt Count (150-450) k/uL Lymphocytes # (1.0-4.8) k/uL Sodium 131 L (137-145) mmol/L Potassium 3.1 L (3.5-5.1) mmol/L Chloride 96 L (98-107) mmol/L BUN 6 L (7-17) mg/dL Creatinine 0.41 L (0.52-1.04) mg/dL Glucose 126 H (74-99) mg/dL POC Glucose (mg/dL) 146 H (75-99) mg/dL Calcium 7.5 L (8.4-10.2) mg/dL Phosphorus (2.5-4.5) mg/dL Magnesium (1.6-2.3) mg/dL AST (14-36) U/L ALT (4-34) U/L Alkaline Phosphatase (38-126) U/L Acetone, Qual 34 H (Negative) mg/dL 09/01/19 09/02/19 09/02/19 Range/Units 23:47 04:13 04:13 MCV 102.8 H (80.0-100.0) fL Plt Count 39 L D (150-450) k/uL Lymphocytes # 0.7 L (1.0-4.8) k/uL Sodium 133 L 134 L (137-145) mmol/L Potassium 3.4 L (3.5-5.1) mmol/L Chloride 96 L (98-107) mmol/L BUN 5 L 4 L (7-17) mg/dL Creatinine 0.41 L 0.36 L (0.52-1.04) mg/dL Glucose 106 H 114 H (74-99) mg/dL POC Glucose (mg/dL) (75-99) mg/dL Calcium 8.0 L 8.2 L (8.4-10.2) mg/dL Phosphorus (2.5-4.5) mg/dL Magnesium 2.4 H (1.6-2.3) mg/dL AST 107 H (14-36) U/L ALT 44 H (4-34) U/L Alkaline Phosphatase 190 H (38-126) U/L Acetone, Qual (Negative) mg/dL 09/02/19 09/02/19 09/02/19 Range/Units 05:04 08:00 11:41 MCV (80.0-100.0) fL Plt Count (150-450) k/uL Lymphocytes # (1.0-4.8) k/uL Sodium 135 L 134 L (137-145) mmol/L Potassium 3.3 L (3.5-5.1) mmol/L Chloride (98-107) mmol/L BUN 4 L 4 L (7-17) mg/dL Creatinine 0.36 L 0.28 L (0.52-1.04) mg/dL Glucose 117 H 110 H (74-99) mg/dL POC Glucose (mg/dL) (75-99) mg/dL Calcium 8.1 L 7.9 L (8.4-10.2) mg/dL Phosphorus <0.5 L* (2.5-4.5) mg/dL Magnesium (1.6-2.3) mg/dL AST (14-36) U/L ALT (4-34) U/L Alkaline Phosphatase (38-126) U/L Acetone, Qual (Negative) mg/dL 09/02/19 Range/Units 11:53 MCV (80.0-100.0) fL Plt Count (150-450) k/uL Lymphocytes # (1.0-4.8) k/uL Sodium (137-145) mmol/L Potassium (3.5-5.1) mmol/L Chloride (98-107) mmol/L BUN (7-17) mg/dL Creatinine (0.52-1.04) mg/dL Glucose (74-99) mg/dL POC Glucose (mg/dL) 113 H (75-99) mg/dL Calcium (8.4-10.2) mg/dL Phosphorus (2.5-4.5) mg/dL Magnesium (1.6-2.3) mg/dL AST (14-36) U/L ALT (4-34) U/L Alkaline Phosphatase (38-126) U/L Acetone, Qual (Negative) mg/dL Microbiology - Last 24 Hours (Table) 08/31/19 23:52 Blood Culture - Preliminary Blood No Growth after 24 hours Assessment and Plan Assessment: Impression: Acute alcoholic ketoacidosis.AKA Acute pancreatitis with nausea vomiting and abdominal pain. Severe anion gap metabolic acidosis secondary to above.. Acute hyperkalemia secondary to metabolic acidosis. Resolved, and now we are dealing mostly with hypokalemia hypomagnesemia and hypophosphatemia. All being addressed accordingly. History of depression. History of opiate abuse. Recommendation: Discontinue dialysis catheter. Continue present supportive care measures. Continue D5 0.9 saline at 100 mL per hour. Continue to monitor electrolytes and renal profile. And correct electrolytes accordingly.. Monitor liver enzymes and lipase and amylase Will monitor in the ICU over the next 24 hours. Overall the patient is improving. Continue to monitor for potential alcohol withdrawal or alcohol withdrawal seizures. Use benzodiazepines for any withdrawal symptoms. We'll continue to follow. Time with Patient: Less than 30
--- NOTE | 2019-09-02 15:54 | PN ---
PROGRESS NOTE Patient is seen for followup for severe metabolic acidosis, which appears to be related to significant alcohol consumption by patient versus starvation ketosis. There was concern for possible ingestion of other alcohol. However, the toxic alcohol panel came back negative. Serum acetone was positive and urinary ketones were positive as well. Patient did receive 1 treatment of hemodialysis given the possible suspicion of suspicion for ingestion of toxic alcohols. She is currently off bicarb drip. Her acidosis has resolved. Patient also has acute pancreatitis, mostly associated with alcohol consumption. PHYSICAL EXAMINATION: Today, she is comfortable, awake, not in any acute distress. Blood pressure is 154/92, heart rate 102 per minute, patient is afebrile. Examination of the heart S1, S2. Examination of the lungs decreased breath sounds at bases. Abdomen is soft, nontender. Examination of lower extremities shows no evidence of edema. MANAGER WASTEWATER exam grossly intact. LAB: Show hemoglobin 12.9, sodium 134, potassium 4.0, BUN 4, serum creatinine 0.28, phosphorus was 0.5. ASSESSMENT: 1. Severe anion gap metabolic acidosis, status post one treatment of hemodialysis. We can discontinue the dialysis catheter. Etiology is likely related to EtOH abuse versus severe starvation ketosis although that would not produce a high osmolar gap. The patient has a high an anion gap as well as osmolar gap and therefore she was dialyzed on admission. 2. Alcoholic pancreatitis, tolerating oral intake. 3. Hypophosphatemia associated with poor oral intake, currently being replaced. 4. Hypokalemia, currently improved. PLAN: Replace phosphorus aggressively. Repeat phosphorus in a.m. Discontinue dialysis catheter. Continue D5 0.9. Encourage increased oral intake. Watch for DTs. MMODL / IJN: [id number] /
[2019-09-02] MEDS ORDERED: POTASSIUM PHOSPHATE 10 MMOL in SODIUM CHLORIDE 0.9% 250 ML IV SCH (16:15)
[2019-09-02 16:43] LABS: African American GFR (CKD) >90 (>60 ml/min/1.73 sqM); Anion Gap 7 mmol/L; Blood Urea Nitrogen 4 mg/dL (7-17); Calcium 8.3 mg/dL (8.4-10.2); Carbon Dioxide 26 mmol/L (22-30); Chloride 102 mmol/L (98-107); Glucose 111 mg/dL (74-99); Non-African American GFR(CKD) >90 (>60 ml/min/1.73 sqM); Sodium 135 mmol/L (137-145)
[2019-09-02] MEDS: MORPHINE SULFATE 4 MG/ML SYRINGE IV PRN ×2 (16:54→22:16)
[2019-09-02 17:02] LABS: Glucose,Whole Blood 125 mg/dL (75-99)
[2019-09-02 17:44] LABS: Hemoglobin A1C 4.8 % (4.0-6.0)
[2019-09-02 21:00] LABS: Glucose,Whole Blood 112 mg/dL (75-99)
[2019-09-02] MEDS: POTAS-SOD-PHOS 278-164-250 MG 1 EACH PACKET PO SCH (21:20)
[2019-09-03] MEDS: MORPHINE SULFATE 4 MG/ML SYRINGE IV PRN ×8 (03:07→21:49)
[2019-09-03 05:11] LABS: HCT 35.8 % (34.0-46.0); HGB 11.5 gm/dL (11.4-16.0); MCH 32.5 pg (25.0-35.0); MCV 101.6 fL (80.0-100.0); Macrocytosis Slight; Mean Platelet Volume 8.9; RBC 3.52 m/uL (3.80-5.40); RDW 15.1 % (11.5-15.5); WBC 6.1 k/uL (3.8-10.6)
[2019-09-03 05:13] LABS: Platelet Count 84 k/uL (150-450)
[2019-09-03 05:20] LABS: ALT 38 U/L (4-34); AST 92 U/L (14-36); African American GFR (CKD) >90 (>60 ml/min/1.73 sqM); Albumin 3.5 g/dL (3.5-5.0); Alkaline Phosphatase 185 U/L (38-126); Anion Gap 8 mmol/L; Blood Urea Nitrogen 2 mg/dL (7-17); Calcium 8.4 mg/dL (8.4-10.2); Carbon Dioxide 26 mmol/L (22-30); Chloride 104 mmol/L (98-107); Glucose 115 mg/dL (74-99); Magnesium 1.8 mg/dL (1.6-2.3); Non-African American GFR(CKD) >90 (>60 ml/min/1.73 sqM); Phosphorus 1.9 mg/dL (2.5-4.5); Sodium 138 mmol/L (137-145); Total Protein 6.2 g/dL (6.3-8.2)
[2019-09-03 05:33] LABS: Potassium 2.7 mmol/L (3.5-5.1)
[2019-09-03] MEDS: DEXTROSE 5%-0.9% NACL 1,000 ML IV SCH ×2 (05:39→15:06)
[2019-09-03] MEDS: PANTOPRAZOLE 40 MG TABLET PO SCH (05:40)
[2019-09-03] MEDS: POTASSIUM CHLORIDE ER 20 MEQ TAB.ER PO SCH ×6 (05:40→23:48)
[2019-09-03] MEDS: MAGNESIUM SULFATE-D5W PMX 1 GM in DEXTROSE/WATER 1 100ML.BAG IVPB SCH ×2 (05:40→06:59)
[2019-09-03] MEDS: POTASSIUM PHOSPHATE 10 MMOL in SODIUM CHLORIDE 0.9% 250 ML IV SCH ×2 (06:45→09:51)
[2019-09-03] MEDS: THIAMINE 100 MG/ML 2 ML VIAL IVP SCH (08:07)
[2019-09-03] MEDS: FOLIC ACID 1 MG TAB PO SCH (08:07)
[2019-09-03] MEDS: POTAS-SOD-PHOS 278-164-250 MG 1 EACH PACKET PO SCH ×3 (08:08→21:49)
[2019-09-03] MEDS: METHYL SALICYLATE/MENTHOL CREAM 5 OZ TOPICAL PRN ×2 (08:16→16:49)
[2019-09-03 09:47] LABS: Amylase 79 U/L (30-110)
[2019-09-03 11:33] LABS: Glucose,Whole Blood 127 mg/dL (75-99)
--- NOTE | 2019-09-03 12:56 | P.PN ---
Subjective Progress Note Date: 09/03/19 Principal diagnosis: Alcoholic ketoacidosis This is a 34-year-old female with history of depression, mild intermittent asthma, patient presented to the ER with almost 2 days history of nausea vomiting and shortness of breath. Her symptoms have become much worse on presentation. Could not keep any food down or any liquid. Patient was also complaining of difficulty getting enough air. No wheezing, no chest pain, no fever, no chills, no hemoptysis. Vague chest discomfort was described. She had no melena, no hematemesis. No fever, no chills, she was complaining of frequent urination every 20 minutes. But she had no dysuria, no hematuria. Patient does admit to drinking alcohol daily for the last several years. Denies drinking any other liquids, patient denies drinking any windshield fluid or antifreeze. Upon presentation, the patient was found to have significant abnormal labs. And her bicarb was less than 5. Her pH was extremely low at 6.94 on a venous blood gas. Her pCO2 was 22. Her amylase and lipase were elevated. Liver enzymes were also elevated. Potassium was elevated at 6.1. Her drug screen was negative for salicylates, acetaminophen, alcohol, but it was positive for acetone. Considering the presentation, patient was treated with antizol, placed on sodium bicarb drip, and vascular surgery established a dialysis catheter and the patient was dialyzed based upon the recommendation of nephrology on the case. Patient was admitted to the ICU, kept on sodium bicarb drip, and I was asked to see her on consultation. During my evaluation, the patient was feeling much better, breathing a lot easier, she had no shortness of breath, no cough, no wheezing, no nausea, no vomiting, and her labs showed worsening lipase and amylase levels. Bicarb is up to 16. Sugar remained relatively normal. Blood sugar now is 110. And it was as high as 170 on presentation. Patient was seen by psychiatry since admission, and it was felt that the patient has mostly history of opiate and alcohol use disorder. Patient never had any suicidal attempts or gestures. And the patient was not felt to be suicidal at this point. Patient was reevaluated today on 09/02/19, remains in the ICU, she is presently on room air, her IV fluid is D5 0.9 at 1 20 mL per hour. Her oxygen saturation is 95% on room air. I have discontinued her sodium bicarb yesterday. And I have ordered a beta hydroxybutyrate level which is pending. After reviewing the whole clinical presentation on this patient, I strongly felt that the patient did not have ethylene glycol toxicity or methanol toxicity. Patient clearly had alcoholic ketoacidosis/AKA. Hence I have recommended aggressive correction of her electrolytes including low potassium and low magnesium. I have also recommended changing her IV fluid to D5 0.9 and thiamine to be given to this patient. Alcoholic ketoacidosis frequently seen in patients who've binge drink like our patient in this presentation. Patient was unable to tolerate oral nutrition for couple of days prior to presentation because she was experiencing nausea and vomiting. And she did have a bout of heavy drinking before the period of relative starvation. With persistent vomiting abdominal pain and this was contributing to inability to tolerate by mouth intake. Lack of nutrients other than alcohol causes the creation of ketones and elevated gap ketoacidosis in the absence of diabetes. Patient presented in a dehydrated state after a bout of heavy drinking and she had ongoing lack of oral intake. Hence she had low glycogen stores and lack of oral food intake shifts the metabolism from carbohydrates to Heather and lipids. Hence this leads to decreased insulin levels and increase in regulatory hormones such as cortisol and glucagon and epinephrine. And increase in the activity of lipase. All of these changes lead to conversion of acetyl acetate to beta hydroxybutyrate hence this will be the predominant ketoacid in AKA. And the level of beta hydroxybutyrate is pending on this patient. Typically patient would present with tachycardia, nausea vomiting, abdominal pain, dehydration, tachypnea secondary to acidosis and dehydration, and agitation. This is exactly how this patient presented initially to the ER. Treatment shifted to isotonic saline. With dextrose to break the cycle of ketogenesis and increase insulin secretion. And this will decrease counter regulatory hormone level and it is essential to administer thiamine. In the meantime continue to aggressively correct electrolytes, mostly calcium magnesium and phosphate. In the meantime the patient would have to be closely monitored for alcohol withdrawal and for alcohol withdrawal seizures. Patient was reevaluated today on 09/03/19, remains in the ICU, and she seems to be doing quite well. Remains on room air, IV fluid in the form of D5 0.9 at 75 mL per hour today, her potassium remains running low, hence I recommended maintaining her on potassium 20 mEq 3 times a day orally. In the meantime she will continue to be monitored closely, and correct potassium as per IV protocol. Patient denies any specific complaints. Denies any abdominal pain, no nausea, no vomiting. No diarrhea. Her CBC is relatively normal left lites are normal except for low potassium of 2.7, magnesium is 1.8 and her lipase is down from 8932 to 1220. Objective - Vital Signs Vital signs: Vital Signs Temp 98.1 F 09/03/19 12:00 Pulse 86 09/03/19 12:00 Resp 18 09/03/19 12:00 BP 150/107 09/03/19 12:00 Pulse Ox 96 09/03/19 12:00 Intake & Output 09/02/19 09/03/19 09/03/19 18:59 06:59 18:59 Intake Total 1715 1430 650 Output Total 820 1255 625 Balance 895 175 25 Weight 94.8 kg Intake: IV 1475 1430 650 Dextrose 5%-0.9% NaCl 1, 600 1080 0 000 ml @ 75 mls/hr IV . [id number] DOUG Rx#:[id number] Magnesium Sulfate-D5w Pmx 100 400 1 gm In Dextrose/Water 1 100ml.bag @ 100 mls/hr IVPB Q1H DOUG Rx#: [id number] Potassium Phosphate 10 250 mmol In Sodium Chloride 0 .9% 250 ml @ 125 mls/hr IV Q2H DOUG Rx#:[id number] Sodium Phosphate 10 mmol 750 In Sodium Chloride 0.9% 250 ml @ 125 mls/hr IVPB Q2H DOUG Rx#:[id number] Sodium Phosphate 10 mmol 125 250 In Sodium Chloride 0.9% 250 ml @ 125 mls/hr IVPB Q2H DOUG Rx#:[id number] Oral 240 Output: Urine 820 1255 625 Other: Voiding Method Indwelling Catheter Indwelling Catheter Indwelling Catheter - Exam Physical Exam: Revealed a 54-year-old female in no distress. Head: Atraumatic, normocephalic. HEENT:[Neck is supple.] [No neck masses.] [No thyromegaly.] [No JVD.] Chest: [Clear throughout, no crackles, no rhonchi, no wheezes.] Cardiac Exam: [Normal S1 and S2, no S3 gallop, no murmur.] Abdomen: [Soft, nontender, no megaly, no rebound, no guarding, normal bowel sounds.] Extremities: [No clubbing, no edema, no cyanosis.] Neurological Exam: [No focal neurologic deficit.] Alert and oriented 3. Psychiatric: Normal mood, affect and normal mental status examination. Skin: No rashes. Lymphatics: No lymphadenopathy. - Labs CBC & Chem 7: 09/03/19 04:18 09/03/19 04:18 Labs: Abnormal Lab Results - Last 24 Hours (Table) 09/02/19 09/02/19 09/02/19 Range/Units 16:12 17:01 20:58 RBC (3.80-5.40) m/uL MCV (80.0-100.0) fL Plt Count (150-450) k/uL Sodium 135 L (137-145) mmol/L Potassium 3.0 L (3.5-5.1) mmol/L BUN 4 L (7-17) mg/dL Creatinine 0.34 L (0.52-1.04) mg/dL Glucose 111 H (74-99) mg/dL POC Glucose (mg/dL) 125 H 112 H (75-99) mg/dL Calcium 8.3 L (8.4-10.2) mg/dL Phosphorus (2.5-4.5) mg/dL AST (14-36) U/L ALT (4-34) U/L Alkaline Phosphatase (38-126) U/L Total Protein (6.3-8.2) g/dL Lipase (23-300) U/L 09/03/19 09/03/19 09/03/19 Range/Units 04:18 04:18 04:18 RBC 3.52 L (3.80-5.40) m/uL MCV 101.6 H (80.0-100.0) fL Plt Count 84 L D (150-450) k/uL Sodium (137-145) mmol/L Potassium 2.7 L* (3.5-5.1) mmol/L BUN 2 L (7-17) mg/dL Creatinine 0.28 L (0.52-1.04) mg/dL Glucose 115 H (74-99) mg/dL POC Glucose (mg/dL) (75-99) mg/dL Calcium (8.4-10.2) mg/dL Phosphorus 1.9 L (2.5-4.5) mg/dL AST 92 H (14-36) U/L ALT 38 H (4-34) U/L Alkaline Phosphatase 185 H (38-126) U/L Total Protein 6.2 L (6.3-8.2) g/dL Lipase 1220 H (23-300) U/L 09/03/19 Range/Units 11:31 RBC (3.80-5.40) m/uL MCV (80.0-100.0) fL Plt Count (150-450) k/uL Sodium (137-145) mmol/L Potassium (3.5-5.1) mmol/L BUN (7-17) mg/dL Creatinine (0.52-1.04) mg/dL Glucose (74-99) mg/dL POC Glucose (mg/dL) 127 H (75-99) mg/dL Calcium (8.4-10.2) mg/dL Phosphorus (2.5-4.5) mg/dL AST (14-36) U/L ALT (4-34) U/L Alkaline Phosphatase (38-126) U/L Total Protein (6.3-8.2) g/dL Lipase (23-300) U/L Microbiology - Last 24 Hours (Table) 08/31/19 23:52 Blood Culture - Preliminary Blood No Growth after 48 hours Assessment and Plan Assessment: Impression: Acute alcoholic ketoacidosis.AKA Acute pancreatitis with nausea vomiting and abdominal pain. Severe anion gap metabolic acidosis secondary to above.. Resolved. Acute hyperkalemia secondary to metabolic acidosis. Resolved, and now we are dealing mostly with hypokalemia hypomagnesemia and hypophosphatemia. History of depression. History of opiate abuse. Recommendation: Continue present supportive care measures. Continue D5 0.9 saline at 75 mL per hour. Continue to monitor electrolytes and renal profile. correct electrolytes accordingly.. Including low potassium and low magnesium Monitor liver enzymes and lipase and amylase, her lipase is coming down nicely. Transfer patient out of the ICU to a regular medical floor.. Clinically she is much improved. But not quite ready for discharge. Continue to monitor for potential alcohol withdrawal or alcohol withdrawal seizures. Use benzodiazepines for any withdrawal symptoms. We'll continue to follow. Time with Patient: Less than 30
--- NOTE | 2019-09-03 15:45 | PN ---
PROGRESS NOTE Patient is seen for followup for severe metabolic acidosis, status post one treatment of hemodialysis, currently doing very well. The patient does have a strong history of EtOH abuse. All the toxic alcohol screen was negative. She is currently maintained on D5 0.9 at 75 mL an hour. PHYSICAL EXAMINATION: On examination today, blood pressure was 150/107, heart rate 97 per minute, patient is afebrile. Examination of the heart S1, S2. Examination of the lungs, decreased breath sounds at bases. Abdomen is soft, nontender. Examination of the lower extremities shows no evidence of edema. ACADEMIC INTERVENTIONIST exam grossly intact. LABS: Show sodium 138, potassium 2.7, chloride 104, BUN 2, serum creatinine 0.28, hemoglobin 11.5 g/dL. ASSESSMENT: 1. Severe anion gap metabolic acidosis with elevated osmolar gap, status post one treatment of dialysis, dialysis catheter was removed. Metabolic acidosis is resolved. Toxic alcoholic screen is negative. Acetone was positive in the blood and serum and urine ketone was also positive. Currently off bicarb drip. 2. Hypokalemia associated with poor oral intake, status post replacement. 3. Severe hypophosphatemia associated with decreased oral intake and malnutrition, status post replacement. 4. Acute kidney injury, mostly prerenal, improved with IV hydration. 5. History of EtOH abuse. 6. Acute pancreatitis, ETOH related. Lipase level is decreasing from 2094-1018. PLAN: Continue IV fluids. We can DC IV fluids once patient is eating well. Continue to replace potassium. MMODL / IJN: [id number] /
[2019-09-03 16:46] LABS: Glucose,Whole Blood 109 mg/dL (75-99)
[2019-09-03 20:07] LABS: Glucose,Whole Blood 113 mg/dL (75-99)
--- NOTE | 2019-09-03 23:40 | P.PN ---
Subjective Progress Note Date: 09/02/19 Principal diagnosis: Severe anion gap metabolic acidosis likely due to Alcoholic ketoacidosis/starvation ketoacidosis Patient is a 34-year-old female with a known history of asthma, anxiety/depression, ongoing nicotine addiction, daily heavy alcohol use came to ER with the complaints of nausea vomiting and shortness of breath x1 day prior to admission. Patient was has been sick with intractable vomiting and unable to keep down fluids or solids. Patient states that she started to feel short of breath like she was not getting enough air. She was also having midsternal chest discomfort along with the shortness of breath. Otherwise denies any cough or sputum production. No fever no chills. Denied any hematemesis or melena. Patient is also complaints that she has been urinating frequently every 20 minutes. Denied any dysuria or hematuria. Denied any history of diabetes. Patient states that she has been drinking daily for the past several years. Upon presentation patient was found to have bicarb level less than 5 and severely acidotic. Hemodialysis catheter was placed and patient was started on hemodialysis and was transferred to MICU. Patient is also on bicarb drip. Laboratory data showed WBC 13.0, hemoglobin 15.7, MCV 113.6, platelets 174 and RDW 15.6 Sodium 136, potassium 6.1, chloride 101 and bicarb less than 5 Blood sugar was 170 BUN 9 and creatinine 1.01 Osmolality 311 Liver is elevated with rest the AST to 52, ALT 83 and alk phos 353 lipase level is 626 Lactic acid 1.4, acetone positive Hepatitis acute negative panel UA negative for infection. Chest x-ray showed normal chest normal heart. EKG showed sinus tachycardia 09/02/2019 Patient is currently in the MICU. More awake and oriented and hemodynamically stable. Bicarb drip has been discontinued. Anion gap closed at this time. Patient was started D5 normal saline. Patient was started on thiamine and multivitamins. Patient likely has alcoholic ketoacidosis. Nephrology is following. No further hemodialysis was recommended. Pulmonary is on board. Patient otherwise denies any complaints of abdominal pain. No nausea vomiting or diarrhea. Patient has been afebrile. Current medications reviewed. Objective - Vital Signs Vital signs: Vital Signs Temp 99.1 F 09/02/19 20:00 Pulse 80 09/02/19 21:00 Resp 16 09/02/19 21:00 BP 141/96 05/19/20 21:00 Pulse Ox 95 09/02/19 21:00 Intake & Output 09/02/19 09/02/19 09/03/19 06:59 18:59 06:59 Intake Total 1540 1715 245 Output Total 1035 820 200 Balance 505 895 45 Weight 89 kg Intake: IV 1540 1475 245 Dextrose 5%-0.9% NaCl 1, 1440 600 120 000 ml @ 120 mls/hr IV . [id number] DOUG Rx#:[id number] Magnesium Sulfate-D5w Pmx 100 1 gm In Dextrose/Water 1 100ml.bag @ 100 mls/hr IVPB Q1H DOUG Rx#: [id number] Sodium Phosphate 10 mmol 750 In Sodium Chloride 0.9% 250 ml @ 125 mls/hr IVPB Q2H DOUG Rx#:[id number] Sodium Phosphate 10 mmol 125 125 In Sodium Chloride 0.9% 250 ml @ 125 mls/hr IVPB Q2H DOUG Rx#:[id number] Oral 240 Output: Urine 1035 820 200 Other: Voiding Method Indwelling Catheter Indwelling Catheter Indwelling Catheter # Bowel Movements 1 - Exam PHYSICAL EXAMINATION: Patient is lying in the bed comfortably, no acute distress, awake alert and oriented. HEENT: Normocephalic. Neck is supple. Pupils reactive. Nostrils clear. Oral cavity is moist. Ears reveal no drainage. Neck reveals no JVD, carotid bruits, or thyromegaly. CHEST EXAMINATION: Trachea is central. Symmetrical expansion. Bibasilar diminished air entry. Lung hansen clear to auscultation and percussion. CARDIAC: Normal S1, S2 with no gallops. No murmurs ABDOMEN: Soft. Bowel sounds normal. No organomegaly. No abdominal bruits. Extremities: reveal no edema. No clubbing or cyanosis Neurologically awake, alert, oriented x3 with well-coordinated movements. No focal deficits noted Skin: No rash or skin lesions. Psychiatric: Coperative. Denied any Susa radiation. Musculoskeletal: No joint swelling or deformity. Normal range of motion. - Labs CBC & Chem 7: 09/03/19 04:18 09/03/19 14:10 Labs: Abnormal Lab Results - Last 24 Hours (Table) 09/01/19 09/02/19 09/02/19 Range/Units 23:47 04:13 04:13 MCV 102.8 H (80.0-100.0) fL Plt Count 39 L D (150-450) k/uL Lymphocytes # 0.7 L (1.0-4.8) k/uL Sodium 133 L 134 L (137-145) mmol/L Potassium 3.4 L (3.5-5.1) mmol/L Chloride 96 L (98-107) mmol/L BUN 5 L 4 L (7-17) mg/dL Creatinine 0.41 L 0.36 L (0.52-1.04) mg/dL Glucose 106 H 114 H (74-99) mg/dL POC Glucose (mg/dL) (75-99) mg/dL Calcium 8.0 L 8.2 L (8.4-10.2) mg/dL Phosphorus (2.5-4.5) mg/dL Magnesium 2.4 H (1.6-2.3) mg/dL AST 107 H (14-36) U/L ALT 44 H (4-34) U/L Alkaline Phosphatase 190 H (38-126) U/L 09/02/19 09/02/19 09/02/19 Range/Units 05:04 08:00 11:41 MCV (80.0-100.0) fL Plt Count (150-450) k/uL Lymphocytes # (1.0-4.8) k/uL Sodium 135 L 134 L (137-145) mmol/L Potassium 3.3 L (3.5-5.1) mmol/L Chloride (98-107) mmol/L BUN 4 L 4 L (7-17) mg/dL Creatinine 0.36 L 0.28 L (0.52-1.04) mg/dL Glucose 117 H 110 H (74-99) mg/dL POC Glucose (mg/dL) (75-99) mg/dL Calcium 8.1 L 7.9 L (8.4-10.2) mg/dL Phosphorus <0.5 L* (2.5-4.5) mg/dL Magnesium (1.6-2.3) mg/dL AST (14-36) U/L ALT (4-34) U/L Alkaline Phosphatase (38-126) U/L 09/02/19 09/02/19 09/02/19 Range/Units 11:53 16:12 17:01 MCV (80.0-100.0) fL Plt Count (150-450) k/uL Lymphocytes # (1.0-4.8) k/uL Sodium 135 L (137-145) mmol/L Potassium 3.0 L (3.5-5.1) mmol/L Chloride (98-107) mmol/L BUN 4 L (7-17) mg/dL Creatinine 0.34 L (0.52-1.04) mg/dL Glucose 111 H (74-99) mg/dL POC Glucose (mg/dL) 113 H 125 H (75-99) mg/dL Calcium 8.3 L (8.4-10.2) mg/dL Phosphorus (2.5-4.5) mg/dL Magnesium (1.6-2.3) mg/dL AST (14-36) U/L ALT (4-34) U/L Alkaline Phosphatase (38-126) U/L 09/02/19 Range/Units 20:58 MCV (80.0-100.0) fL Plt Count (150-450) k/uL Lymphocytes # (1.0-4.8) k/uL Sodium (137-145) mmol/L Potassium (3.5-5.1) mmol/L Chloride (98-107) mmol/L BUN (7-17) mg/dL Creatinine (0.52-1.04) mg/dL Glucose (74-99) mg/dL POC Glucose (mg/dL) 112 H (75-99) mg/dL Calcium (8.4-10.2) mg/dL Phosphorus (2.5-4.5) mg/dL Magnesium (1.6-2.3) mg/dL AST (14-36) U/L ALT (4-34) U/L Alkaline Phosphatase (38-126) U/L Microbiology - Last 24 Hours (Table) 08/31/19 23:52 Blood Culture - Preliminary Blood No Growth after 24 hours Assessment and Plan Assessment: Severe anion gap metabolic acidosis likely due to Alcoholic ketoacidosis/starvation ketoacidosis..had one run of emergent hemodialysis. Resolved now. Acute alcoholic pancreatitis Alcoholic hepatitis Intractable nausea vomiting Hypokalemia with potassium level 6.1 due to acidosis Anxiety/depression Ongoing nicotine addiction Daily heavy alcohol use Hypokalemia, hypomagnesemia, hypophosphatemia. Replaced. DVT prophylaxis Plan: Patient underwent emergent hemodialysis and Significantly improved at this time. Bicarb drip has been discontinued and was started on D5 normal saline due to alcoholic ketoacidosis. Monitor liver enzymes and alk phos levels as well as lipase level. Repalce electrolytes. Patient was seen by psychiatry due to major depression and recommends no inpatient psych admission at this time. c/w thiamine and FA, Pulmonary and Nephrology is following. Further recommendations based on the clinical course. Time with Patient: Greater than 30
--- NOTE | 2019-09-03 23:52 | P.PN ---
Subjective Progress Note Date: 09/03/19 Principal diagnosis: Severe anion gap metabolic acidosis likely due to Alcoholic ketoacidosis/starvation ketoacidosis Patient is a 34-year-old female with a known history of asthma, anxiety/depression, ongoing nicotine addiction, daily heavy alcohol use came to ER with the complaints of nausea vomiting and shortness of breath x1 day prior to admission. Patient was has been sick with intractable vomiting and unable to keep down fluids or solids. Patient states that she started to feel short of breath like she was not getting enough air. She was also having midsternal chest discomfort along with the shortness of breath. Otherwise denies any cough or sputum production. No fever no chills. Denied any hematemesis or melena. Patient is also complaints that she has been urinating frequently every 20 minutes. Denied any dysuria or hematuria. Denied any history of diabetes. Patient states that she has been drinking daily for the past several years. Upon presentation patient was found to have bicarb level less than 5 and severely acidotic. Hemodialysis catheter was placed and patient was started on hemodialysis and was transferred to MICU. Patient is also on bicarb drip. Laboratory data showed WBC 13.0, hemoglobin 15.7, MCV 113.6, platelets 174 and RDW 15.6 Sodium 136, potassium 6.1, chloride 101 and bicarb less than 5 Blood sugar was 170 BUN 9 and creatinine 1.01 Osmolality 311 Liver is elevated with rest the AST to 52, ALT 83 and alk phos 353 lipase level is 626 Lactic acid 1.4, acetone positive Hepatitis acute negative panel UA negative for infection. Chest x-ray showed normal chest normal heart. EKG showed sinus tachycardia 09/02/2019 Patient is currently in the MICU. More awake and oriented and hemodynamically stable. Bicarb drip has been discontinued. Anion gap closed at this time. Patient was started D5 normal saline. Patient was started on thiamine and multivitamins. Patient likely has alcoholic ketoacidosis. Nephrology is following. No further hemodialysis was recommended. Pulmonary is on board. Patient otherwise denies any complaints of abdominal pain. No nausea vomiting or diarrhea. Patient has been afebrile. 09/03/2019 Patient is more awake and oriented now. Hemodynamically stable and saturating well on room air. Currently being continued on IV hydration with D5 normal saline. Potassium is being replaced. Potassium was 2.7 this morning. Magnesium was 1.8. Lipase level is trending down to 1220. Patient is being transferred to medical floor today. Current medications reviewed. Objective - Vital Signs Vital signs: Vital Signs Temp 100.1 F H 09/03/19 21:00 Pulse 93 09/03/19 21:00 Resp 16 09/03/19 21:00 BP 137/94 09/03/19 21:00 Pulse Ox 95 09/03/19 21:00 Intake & Output 09/03/19 09/03/19 09/04/19 06:59 18:59 06:59 Intake Total 1430 875 Output Total 1255 950 Balance 175 -75 Weight 94.8 kg Intake: IV 1430 875 Dextrose 5%-0.9% NaCl 1, 1080 225 000 ml @ 75 mls/hr IV . [id number] DOUG Rx#:[id number] Magnesium Sulfate-D5w Pmx 100 400 1 gm In Dextrose/Water 1 100ml.bag @ 100 mls/hr IVPB Q1H DOUG Rx#: [id number] Potassium Phosphate 10 250 mmol In Sodium Chloride 0 .9% 250 ml @ 125 mls/hr IV Q2H DOUG Rx#:[id number] Sodium Phosphate 10 mmol 250 In Sodium Chloride 0.9% 250 ml @ 125 mls/hr IVPB Q2H DOUG Rx#:[id number] Output: Urine 1255 950 Other: Voiding Method Indwelling Catheter Indwelling Catheter - Exam PHYSICAL EXAMINATION: Patient is lying in the bed comfortably, no acute distress, awake alert and oriented. HEENT: Normocephalic. Neck is supple. Pupils reactive. Nostrils clear. Oral cavity is moist. Ears reveal no drainage. Neck reveals no JVD, carotid bruits, or thyromegaly. CHEST EXAMINATION: Trachea is central. Symmetrical expansion. Bibasilar diminished air entry. Lung hansen clear to auscultation and percussion. CARDIAC: Normal S1, S2 with no gallops. No murmurs ABDOMEN: Soft. Bowel sounds normal. No organomegaly. No abdominal bruits. Extremities: reveal no edema. No clubbing or cyanosis Neurologically awake, alert, oriented x3 with well-coordinated movements. No focal deficits noted Skin: No rash or skin lesions. Psychiatric: Coperative. Denied any Susa radiation. Musculoskeletal: No joint swelling or deformity. Normal range of motion. - Labs CBC & Chem 7: 09/03/19 04:18 09/03/19 14:10 Labs: Abnormal Lab Results - Last 24 Hours (Table) 09/03/19 09/03/19 09/03/19 Range/Units 04:18 04:18 04:18 RBC 3.52 L (3.80-5.40) m/uL MCV 101.6 H (80.0-100.0) fL Plt Count 84 L D (150-450) k/uL Potassium 2.7 L* (3.5-5.1) mmol/L BUN 2 L (7-17) mg/dL Creatinine 0.28 L (0.52-1.04) mg/dL Glucose 115 H (74-99) mg/dL POC Glucose (mg/dL) (75-99) mg/dL Phosphorus 1.9 L (2.5-4.5) mg/dL AST 92 H (14-36) U/L ALT 38 H (4-34) U/L Alkaline Phosphatase 185 H (38-126) U/L Total Protein 6.2 L (6.3-8.2) g/dL Lipase 1220 H (23-300) U/L 09/03/19 09/03/19 09/03/19 Range/Units 11:31 16:45 20:06 RBC (3.80-5.40) m/uL MCV (80.0-100.0) fL Plt Count (150-450) k/uL Potassium (3.5-5.1) mmol/L BUN (7-17) mg/dL Creatinine (0.52-1.04) mg/dL Glucose (74-99) mg/dL POC Glucose (mg/dL) 127 H 109 H 113 H (75-99) mg/dL Phosphorus (2.5-4.5) mg/dL AST (14-36) U/L ALT (4-34) U/L Alkaline Phosphatase (38-126) U/L Total Protein (6.3-8.2) g/dL Lipase (23-300) U/L Microbiology - Last 24 Hours (Table) 08/31/19 23:52 Blood Culture - Preliminary Blood No Growth after 48 hours Assessment and Plan Assessment: Severe anion gap metabolic acidosis likely due to Alcoholic ketoacidosis/starvation ketoacidosis..had one run of emergent hemodialysis. Re solved now. Acute alcoholic pancreatitis Alcoholic hepatitis Intractable nausea vomiting Hyperkalemia with potassium level 6.1 due to acidosis. resolved. Hypokalemia Anxiety/depression Ongoing nicotine addiction Daily heavy alcohol use Hypokalemia, hypomagnesemia, hypophosphatemia. Replaced. DVT prophylaxis Plan: Patient underwent emergent hemodialysis and Significantly improved at this time. Bicarb drip has been discontinued and was started on D5 normal saline due to alcoholic ketoacidosis. Monitor liver enzymes and alk phos levels as well as lipase level. Repalce electrolytes. Patient was seen by psychiatry due to major depression and recommends no inpatient psych admission at this time. c/w thiamine and FA, Pulmonary and Nephrology is following. Further recommendations based on the clinical course. Time with Patient: Greater than 30
[2019-09-04] MEDS: MORPHINE SULFATE 4 MG/ML SYRINGE IV PRN ×4 (02:15→11:49)
[2019-09-04] MEDS: DEXTROSE 5%-0.9% NACL 1,000 ML IV SCH ×2 (02:17→14:58)
[2019-09-04 06:54] LABS: Glucose,Whole Blood 110 mg/dL (75-99)
[2019-09-04] MEDS: FOLIC ACID 1 MG TAB PO SCH (07:44)
[2019-09-04] MEDS: POTASSIUM CHLORIDE ER 20 MEQ TAB.ER PO SCH (07:44)
[2019-09-04] MEDS: PANTOPRAZOLE 40 MG TABLET PO SCH (07:44)
[2019-09-04] MEDS: POTAS-SOD-PHOS 278-164-250 MG 1 EACH PACKET PO SCH (07:45)
[2019-09-04] MEDS: THIAMINE 100 MG/ML 2 ML VIAL IVP SCH (07:45)
[2019-09-04 09:53] LABS: ALT 45 U/L (4-34); AST 120 U/L (14-36); African American GFR (CKD) >90 (>60 ml/min/1.73 sqM); Albumin 3.4 g/dL (3.5-5.0); Alkaline Phosphatase 175 U/L (38-126); Anion Gap 6 mmol/L; Blood Urea Nitrogen 3 mg/dL (7-17); Calcium 8.8 mg/dL (8.4-10.2); Carbon Dioxide 26 mmol/L (22-30); Chloride 105 mmol/L (98-107); Glucose 114 mg/dL (74-99); Non-African American GFR(CKD) >90 (>60 ml/min/1.73 sqM); Potassium 3.5 mmol/L (3.5-5.1); Sodium 137 mmol/L (137-145); Total Bilirubin 0.9 mg/dL (0.2-1.3)
[2019-09-04 11:13] LABS: Glucose,Whole Blood 102 mg/dL (75-99)
[2019-09-04 11:55] VITALS: BP 153/99; PULSE 84; RESP 17; TEMP 97
--- NOTE | 2019-09-04 12:50 | P.PN ---
Subjective Progress Note Date: 09/04/19 Principal diagnosis: Alcoholic ketoacidosis This is a 34-year-old female with history of depression, mild intermittent asthma, patient presented to the ER with almost 2 days history of nausea vomiting and shortness of breath. Her symptoms have become much worse on presentation. Could not keep any food down or any liquid. Patient was also complaining of difficulty getting enough air. No wheezing, no chest pain, no fever, no chills, no hemoptysis. Vague chest discomfort was described. She had no melena, no hematemesis. No fever, no chills, she was complaining of frequent urination every 20 minutes. But she had no dysuria, no hematuria. Patient does admit to drinking alcohol daily for the last several years. Denies drinking any other liquids, patient denies drinking any windshield fluid or antifreeze. Upon presentation, the patient was found to have significant abnormal labs. And her bicarb was less than 5. Her pH was extremely low at 6.94 on a venous blood gas. Her pCO2 was 22. Her amylase and lipase were elevated. Liver enzymes were also elevated. Potassium was elevated at 6.1. Her drug screen was negative for salicylates, acetaminophen, alcohol, but it was positive for acetone. Considering the presentation, patient was treated with antizol, placed on sodium bicarb drip, and vascular surgery established a dialysis catheter and the patient was dialyzed based upon the recommendation of nephrology on the case. Patient was admitted to the ICU, kept on sodium bicarb drip, and I was asked to see her on consultation. During my evaluation, the patient was feeling much better, breathing a lot easier, she had no shortness of breath, no cough, no wheezing, no nausea, no vomiting, and her labs showed worsening lipase and amylase levels. Bicarb is up to 16. Sugar remained relatively normal. Blood sugar now is 110. And it was as high as 170 on presentation. Patient was seen by psychiatry since admission, and it was felt that the patient has mostly history of opiate and alcohol use disorder. Patient never had any suicidal attempts or gestures. And the patient was not felt to be suicidal at this point. Patient was reevaluated today on 09/02/19, remains in the ICU, she is presently on room air, her IV fluid is D5 0.9 at 1 20 mL per hour. Her oxygen saturation is 95% on room air. I have discontinued her sodium bicarb yesterday. And I have ordered a beta hydroxybutyrate level which is pending. After reviewing the whole clinical presentation on this patient, I strongly felt that the patient did not have ethylene glycol toxicity or methanol toxicity. Patient clearly had alcoholic ketoacidosis/AKA. Hence I have recommended aggressive correction of her electrolytes including low potassium and low magnesium. I have also recommended changing her IV fluid to D5 0.9 and thiamine to be given to this patient. Alcoholic ketoacidosis frequently seen in patients who've binge drink like our patient in this presentation. Patient was unable to tolerate oral nutrition for couple of days prior to presentation because she was experiencing nausea and vomiting. And she did have a bout of heavy drinking before the period of relative starvation. With persistent vomiting abdominal pain and this was contributing to inability to tolerate by mouth intake. Lack of nutrients other than alcohol causes the creation of ketones and elevated gap ketoacidosis in the absence of diabetes. Patient presented in a dehydrated state after a bout of heavy drinking and she had ongoing lack of oral intake. Hence she had low glycogen stores and lack of oral food intake shifts the metabolism from carbohydrates to Heather and lipids. Hence this leads to decreased insulin levels and increase in regulatory hormones such as cortisol and glucagon and epinephrine. And increase in the activity of lipase. All of these changes lead to conversion of acetyl acetate to beta hydroxybutyrate hence this will be the predominant ketoacid in AKA. And the level of beta hydroxybutyrate is pending on this patient. Typically patient would present with tachycardia, nausea vomiting, abdominal pain, dehydration, tachypnea secondary to acidosis and dehydration, and agitation. This is exactly how this patient presented initially to the ER. Treatment shifted to isotonic saline. With dextrose to break the cycle of ketogenesis and increase insulin secretion. And this will decrease counter regulatory hormone level and it is essential to administer thiamine. In the meantime continue to aggressively correct electrolytes, mostly calcium magnesium and phosphate. In the meantime the patient would have to be closely monitored for alcohol withdrawal and for alcohol withdrawal seizures. Patient was reevaluated today on 09/03/19, remains in the ICU, and she seems to be doing quite well. Remains on room air, IV fluid in the form of D5 0.9 at 75 mL per hour today, her potassium remains running low, hence I recommended maintaining her on potassium 20 mEq 3 times a day orally. In the meantime she will continue to be monitored closely, and correct potassium as per IV protocol. Patient denies any specific complaints. Denies any abdominal pain, no nausea, no vomiting. No diarrhea. Her CBC is relatively normal left lites are normal except for low potassium of 2.7, magnesium is 1.8 and her lipase is down from 8932 to 1220. Patient was evaluated today on 09/04/19. Patient is now on a regular medical floor, on room air, doing quite well. Asymptomatic. No cough no wheezing no shortness of breath no chest pain no nausea no vomiting and no abdominal pain. Basic metabolic profile is normal. Blood sugar is 102. Lipase is down to 1037. And amylase is normal. Liver enzymes are improving steadily since admission. Hence I feel the patient could possibly be discharged home today. Objective - Vital Signs Vital signs: Vital Signs Temp 97 F L 09/04/19 11:55 Pulse 84 09/04/19 11:55 Resp 17 09/04/19 11:55 BP 153/99 09/04/19 11:55 Pulse Ox 96 09/04/19 11:55 Intake & Output 09/03/19 09/04/19 09/04/19 18:59 06:59 18:59 Intake Total 875 1120 Output Total 950 Balance -75 1120 Intake: IV 875 900 Dextrose 5%-0.9% NaCl 1, 225 900 000 ml @ 75 mls/hr IV . [id number] DOUG Rx#:[id number] Magnesium Sulfate-D5w Pmx 400 1 gm In Dextrose/Water 1 100ml.bag @ 100 mls/hr IVPB Q1H DOUG Rx#: [id number] Potassium Phosphate 10 250 mmol In Sodium Chloride 0 .9% 250 ml @ 125 mls/hr IV Q2H DOUG Rx#:[id number] Oral 220 Output: Urine 950 Other: Voiding Method Indwelling Catheter Toilet # Voids 1 - Exam Physical Exam: Revealed a 54-year-old female in no distress. On room air. Head: Atraumatic, normocephalic. HEENT:[Neck is supple.] [No neck masses.] [No thyromegaly.] [No JVD.] Chest: [Clear throughout, no crackles, no rhonchi, no wheezes.] Cardiac Exam: [Normal S1 and S2, no S3 gallop, no murmur.] Abdomen: [Soft, nontender, no megaly, no rebound, no guarding, normal bowel sounds.] Extremities: [No clubbing, no edema, no cyanosis.] Neurological Exam: [No focal neurologic deficit.] Alert and oriented 3. Psychiatric: Normal mood, affect and normal mental status examination. Skin: No rashes. Lymphatics: No lymphadenopathy. - Labs CBC & Chem 7: 09/03/19 04:18 09/04/19 06:10 Labs: Abnormal Lab Results - Last 24 Hours (Table) 09/03/19 09/03/19 09/04/19 Range/Units 16:45 20:06 06:10 BUN 3 L (7-17) mg/dL Creatinine 0.31 L (0.52-1.04) mg/dL Glucose 114 H (74-99) mg/dL POC Glucose (mg/dL) 109 H 113 H (75-99) mg/dL AST 120 H (14-36) U/L ALT 45 H (4-34) U/L Alkaline Phosphatase 175 H (38-126) U/L Total Protein 6.0 L (6.3-8.2) g/dL Albumin 3.4 L (3.5-5.0) g/dL Lipase 1037 H (23-300) U/L 09/04/19 09/04/19 Range/Units 06:53 11:12 BUN (7-17) mg/dL Creatinine (0.52-1.04) mg/dL Glucose (74-99) mg/dL POC Glucose (mg/dL) 110 H 102 H (75-99) mg/dL AST (14-36) U/L ALT (4-34) U/L Alkaline Phosphatase (38-126) U/L Total Protein (6.3-8.2) g/dL Albumin (3.5-5.0) g/dL Lipase (23-300) U/L Microbiology - Last 24 Hours (Table) 08/31/19 23:52 Blood Culture - Preliminary Blood No Growth after 72 hours Assessment and Plan Assessment: Impression: Acute alcoholic ketoacidosis.AKA Acute pancreatitis with nausea vomiting and abdominal pain. Severe anion gap metabolic acidosis secondary to above.. Resolved. Electrolytes imbalance, resolved. History of depression. History of opiate abuse. Recommendation: After reviewing all her labs, and examining the patient, I feel the patient could be considered to be discharged home today. And follow-up with her primary care physician. Time with Patient: Less than 30
--- NOTE | 2019-09-04 15:44 | PN ---
PROGRESS NOTE Patient is seen for followup for severe metabolic acidosis, currently resolved. She is doing well. Patient denies any significant complaints, she is trying to eat. Current issues remain hypophosphatemia and hypokalemia. PHYSICAL EXAMINATION: On examination today, blood pressure is 142/82, heart rate 84 per minute she is afebrile. Examination of the heart S1, S2. Examination of the lungs, bilateral breath sounds are heard. Abdomen is soft, nontender. Examination of the lower extremities shows no evidence of edema. [employer] exam grossly intact. LABS: Show sodium of 137, potassium 3.5, chloride 105, BUN 3, serum creatinine 0.3, CO2 is 26. ASSESSMENT: 1. Acute kidney injury, prerenal currently resolved. Creatinine was 1.0 on admission now at 0.2 and 0.3 mg/dL. 2. Severe anion gap metabolic acidosis along with elevated osmolar gap with initial suspicion for ingestion of toxic alcohol, status post 1 treatment of hemodialysis, now resolved, dialysis catheter has been removed. Patient does have a strong history of EtOH abuse. Her alcohol level was negative with serum acetone and urinary ketones were positive. 3. Acute pancreatitis associated with ETOH abuse. 4. Hypophosphatemia, currently being replaced. 5. Hypokalemia maintained on supplementation. PLAN: Continue to monitor electrolytes and increase oral intake as tolerated. MMODL / IJN: [id number] /
== END 2019-09-04 15:00 | disposition home or self-care (01) | DRG 640 ==
LOC: EC 21:21 → 2SICU 09-01 01:30 → 5NMEDONC 09-03 17:18
PROVIDERS: ADMIT Hospitalist; ATTEND Hospitalist
PROC: 5A1D70Z Performance of Urinary Filtration, Intermittent, Less than 6 Hours Per Day (ICD-10-PCS; principal; 2019-09-01 13:00)
PROC: 06HY33Z Insertion of Infusion Device into Lower Vein, Percutaneous Approach (ICD-10-PCS; 2019-09-01 13:00)
DX: E87.2 Acidosis (principal); K85.20 Alcohol induced acute pancreatitis without necrosis or infection; N17.9 Acute kidney failure, unspecified; K70.10 Alcoholic hepatitis without ascites; E83.39 Other disorders of phosphorus metabolism; E83.41 Hypermagnesemia; E83.42 Hypomagnesemia; E86.0 Dehydration; E87.5 Hyperkalemia; E87.6 Hypokalemia; F10.10 Alcohol abuse, uncomplicated; Z11.59 Encounter for screening for other viral diseases; F17.200 Nicotine dependence, unspecified, uncomplicated; F32.9 Major depressive disorder, single episode, unspecified; F41.9 Anxiety disorder, unspecified; J45.20 Mild intermittent asthma, uncomplicated; F11.10 Opioid abuse, uncomplicated; R07.89 Other chest pain; R73.9 Hyperglycemia, unspecified; Z79.899 Other long term (current) drug therapy; Z90.49 Acquired absence of other specified parts of digestive tract
CPT/HCPCS: 36410; 36415; 51702; 71046; 76937; 80048; 80053; 80320; 80329; 81001; 82009; 82010; 82150; 82803; 83036; 83520; 83605; 83690; 83735; 83930; 83935; 84100; 84132; 84484; 84600; 84703; 85025; 85027; 85610; 85730; 86704; 86706; 87040; 87340; 87635; 90935; 93005; 94640; 96361; 96365; 96367; 96372; 96374; 96375; 99291; 99292

== ENCOUNTER 2020-02-22 02:20 | Inpatient (IN) | payer OTHER ==
[2020-02-22] MEDS ORDERED: PROMETHAZINE INJ 25 MG in SODIUM CHLORIDE 0.9% 50 ML IVPB STA (02:56)
[2020-02-22] MEDS ORDERED: SODIUM CHLORIDE 0.9% 1,000 ML IV ONE ×3 (02:56→16:43)
[2020-02-22 03:12] LABS: Anisocytosis Slight; HCT 52.6 % (34.0-46.0); HGB 15.1 gm/dL (11.4-16.0); Hypochromasia Marked; MCH 31.7 pg (25.0-35.0); MCHC 28.8 g/dL (31.0-37.0); MCV 110.1 fL (80.0-100.0); Macrocytosis Marked; Mean Platelet Volume 9.6; Platelet Count 132 k/uL (150-450); RBC 4.78 m/uL (3.80-5.40); RDW 17.3 % (11.5-15.5)
[2020-02-22 03:22] LABS: ALT 157 U/L (4-34); AST 453 U/L (14-36); African American GFR (CKD) 80 (>60 ml/min/1.73 sqM); Albumin 5.6 g/dL (3.5-5.0); Alcohol <10 mg/dL; Alkaline Phosphatase 428 U/L (38-126); Blood Urea Nitrogen 5 mg/dL (7-17); Chloride 99 mmol/L (98-107); Glucose 232 mg/dL (74-99); Magnesium 2.2 mg/dL (1.6-2.3); Non-African American GFR(CKD) 69 (>60 ml/min/1.73 sqM); Potassium 5.2 mmol/L (3.5-5.1); Sodium 138 mmol/L (137-145); Total Bilirubin 1.5 mg/dL (0.2-1.3)
[2020-02-22] MEDS ORDERED: ENOXAPARIN 80 MG/0.8 ML SYRINGE SQ STA (03:24)
[2020-02-22] MEDS ORDERED: ENOXAPARIN 100 MG/ML SYRINGE SQ STA (03:28)
[2020-02-22 03:32] LABS: Carbon Dioxide <5 mmol/L (22-30)
[2020-02-22 03:44] LABS: Appearance,Urine Cloudy (Clear); Bacteria,Urine Moderate /hpf; Bilirubin,Urine 1+ (Negative); Blood,Urine Small (Negative); Color,Urine Yellow; Glucose,Urine (UA) Negative (Negative); Hyaline Casts,Urine 212 /lpf (0-2); Ketones,Urine 4+ (Negative); Leukocyte Esterase,Urine Negative (Negative); Mucus,Urine Rare /hpf; Nitrite,Urine Negative (Negative); Protein,Urine 3+ (Negative); RBC,Urine 44 /hpf (0-5); Specific Gravity,Urine 1.021 (1.001-1.035); Squamous Epithelial Cell,Urine 3 /hpf (0-4); WBC,Urine 6 /hpf (0-5)
[2020-02-22 04:01] LABS: Amphetamine Screen,Urine Not Detected (NotDetected); Barbiturate Screen,Urine Not Detected (NotDetected); Benzodiazepines Screen,Urine Not Detected (NotDetected); Cocaine Screen,Urine Not Detected (NotDetected); Methadone Screen, Urine Not Detected (NotDetected); Opiate Screen,Urine Not Detected (NotDetected); Oxycodone Screen, Urine Not Detected (NotDetected); Phencyclidine Screen,Urine Not Detected (NotDetected); Tricyclic Antidepressant,Urine Not Detected (NotDetected); Urn Cannabinoid Scrn Detected (NotDetected)
[2020-02-22 04:04] LABS: Band Neutrophils % 2 %; Monocytes # (M) 0.13 k/uL (0-1.0); Neutrophils % (M) 88 %; Nucleated Red Blood Cells 1 /100 WBC (0-0); Total Cells Counted 200; WBC 13.3 k/uL (3.8-10.6)
--- NOTE | 2020-02-22 04:28 | CT ---
EXAM: CT Abdomen and Pelvis With Intravenous Contrast CLINICAL HISTORY: ITS.REASON CT Reason: Right sided abdominal pain TECHNIQUE: Axial computed tomography images of the abdomen and pelvis with intravenous contrast. CTDI is 23.985 mGy and DLP is 1074.1 mGy-cm. This CT exam was performed using one or more of the following dose reduction techniques: automated exposure control, adjustment of the mA and/or kV according to patient size, and/or use of iterative reconstruction technique. COMPARISON: No previous studies. FINDINGS: Limitations: Limited evaluation of the motion artifact. Lung bases: Patchy airspace disease at the lung bases bilaterally. Atypical pneumonia such as Covid-19 pneumonia should be considered. Pleural space: No pleural effusions. Heart: The heart is normal in size. Mediastinum: Distal esophagitis. ABDOMEN: Liver: Diffuse fatty infiltration of the liver is noted. Gallbladder and bile ducts: Status post cholecystectomy. No ductal dilation. Pancreas: The head, body, tail the pancreas are within normal limits. No ductal dilation. Spleen: The spleen enhance uniformly. Punctate calcifications within the spleen suggestive of previous granulomatous disease. Adrenals: 0.5 cm probable left adrenal adenoma which requires no follow. Right adrenal gland is unremarkable. Kidneys and ureters: No renal calculus or hydronephrosis. Very minimal nonspecific stranding about the perinephric spaces. Stomach and bowel: Mildly distended stomach with fluid and presumed ingested material within it. Extensive diffuse wall thickening of the ascending colon extending to the transverse colon the descending colon and the sigmoid colon. Diffuse inflammatory or infectious etiology should be considered. PELVIS: Appendix: Appendix is seen on axial images 66-69 and is unremarkable. Bladder: Bladder is underdistended. Reproductive: Uterus is unremarkable. ABDOMEN and PELVIS: Intraperitoneal space: Unremarkable. No free air. No significant fluid collection. Bones/joints: Evaluation of bone window images reveals mild osteoarthritic changes about the sacroiliac joints. Alignment of the thoracolumbar spine is unremarkable. No spondylolysis or spondylolisthesis per The sacrum and coccyx are unremarkable. No acute fracture. Soft tissues: Ischiorectal fat is clean. Vasculature: Flow is demonstrated within the celiac, SMA, the renal arteries, and TREY. Abdominal aorta is normal in caliber. Portal vein is patent. No abdominal aortic aneurysm. Lymph nodes: No retroperitoneal lymphadenopathy. No pelvic or inguinal lymphadenopathy. Other findings: Minimal elevation of left hemidiaphragm. IMPRESSION: 1. Diffuse wall thickening of the colon throughout suggestive of diffuse inflammatory or infectious etiologies. 2. Esophagitis. 3. Fatty infiltration of the liver. 4. Status post cholecystectomy. 5. Nonspecific stranding about the perinephric spaces without hydronephrosis appeared 6. The appendix is unremarkable. 7. No bowel obstruction.
--- NOTE | 2020-02-22 04:31 | CT ---
EXAM: CT Angiography Chest With Intravenous Contrast CLINICAL HISTORY: Dyspnea. Evaluate for PE. TECHNIQUE: Axial computed tomographic angiography images of the chest with intravenous contrast. CTDI is 13.185 mGy and DLP is 313.1 mGy-cm. This CT exam was performed using one or more of the following dose reduction techniques: automated exposure control, adjustment of the mA and/or kV according to patient size, and/or use of iterative reconstruction technique. MIP reconstructed images were created and reviewed. COMPARISON: Chest 2 views of 08/31/2019. FINDINGS: Pulmonary arteries: No central pulmonary embolism. Limited evaluation of the peripheral branch of the pulmonary arteries without pulmonary embolism detected. Aorta: Thoracic aorta is unremarkable. Thoracic aorta and its branches of the sagittal view are unremarkable. No thoracic aortic aneurysm. Lungs: Evaluation of the pulmonary parenchyma bilaterally reveals confluent patchy airspace disease in the mid to lower lung zones predominantly highly worrisome for Covid-19 pneumonia. No mass. Pleural space: Unremarkable. No significant effusion. No pneumothorax. Heart: Heart is top normal in size. No significant pericardial effusion. No evidence of RV dysfunction. Mediastinum: Distal esophagitis. Bones/joints: Mild to moderate degenerative disc disease of the thoracic spine. No acute fracture. No dislocation. Soft tissues: Unremarkable. Lymph nodes: Unremarkable. No enlarged lymph nodes. Other findings: Mild hypoaeration. IMPRESSION: 1. No central or peripheral pulmonary emboli. 2. Findings highly suspicious for Covid-19 pneumonia. 3. Hypoaeration.
[2020-02-22] MEDS ORDERED: PNEUMONIA PROTOCOL UTILIZED 1 EACH MISC PO PRN (05:33)
[2020-02-22] MEDS ORDERED: AZITHROMYCIN 500 MG TAB PO STA (06:01)
[2020-02-22] MEDS ORDERED: LORazepam 2 MG/ML INJ IV PRN ×3 (06:09)
--- NOTE | 2020-02-22 06:15 | ED ---
General Adult HPI - General Chief complaint: Chest Pain Stated complaint: chest pain,ALISE Time Seen by Provider: 02/22/20 02:29 Source: patient Mode of arrival: ambulatory Limitations: no limitations - History of Present Illness Initial comments: this patient is 34-year-old woman who presents with a constellation of symptoms that is been getting worse over the past approximately 3 days or so. She states that initially she was having a fair amount of coughing going onand then that this seemed to lead to some retching and vomiting. She states that she also was having some episodes of loose bowel movements. She has not been keepingmuch down in the way of fluid or food for the past 1-2 days now. She also has been having painalong the rightside of her body at the margin of the ribs. Patient states she does not think this is related to gallbladder she has had cholecystectomy. In addition, patient is using Suboxone states she was not able to keep her dose of that down today, though she states she does not feel like she is havingwithdrawal at the moment. She has felt warm at times but not sure if this was fever or related to the vomiting. She does note that she is urinating less frequently is darker and she feels dehydrated. -: days(s) Location: chest, abdomen Radiation: non-radiation Quality: aching Consistency: constant Improves with: none Worsens with: other (ough) Associated Symptoms: cough, nausea/vomiting Treatments Prior to Arrival: none - Related Data Home Medications Medication Instructions Recorded Confirmed Buprenorphine HCl/Naloxone HCl 0.5 film SL HS 08/31/19 02/22/20 [Suboxone 4 mg-1 mg Sl Film] Buprenorphine HCl/Naloxone HCl 1 film SL DAILY 08/31/19 02/22/20 [Suboxone 4 mg-1 mg Sl Film] busPIRone HCL 15 mg PO BID 08/31/19 02/22/20 Venlafaxine HCl [Effexor XR] 75 mg PO DAILY 02/22/20 02/22/20 Previous Rx's Medication Instructions Recorded Budesonide-Formot 160-4.5 Mcg 2 puff INHALATION BID #1 inhaler 02/26/20 [Symbicort 160-4.5 Mcg Inhaler] Levofloxacin [Levaquin] 500 mg PO Q24H #5 tab 02/26/20 Omeprazole [PriLOSEC] 40 mg PO AC-BRKFST #14 capsule. 02/26/20 Thiamine [Vitamin B-1] 100 mg PO DAILY #30 tab 02/26/20 metroNIDAZOLE [Flagyl] 500 mg PO Q8HR #15 tab 02/26/20 Allergies Allergy/AdvReac Type Severity Reaction Status Date / Time No Known Allergies Allergy Verified 02/22/20 08:32 Review of Systems ROS Statement: Those systems with pertinent positive or pertinent negative responses have been documented in the HPI. ROS Other: All systems not noted in ROS Statement are negative. Constitutional: Reports: as per HPI, other (possibility). Denies: chills ENT: Denies: congestion Respiratory: Reports: cough. Denies: dyspnea, wheezes, hemoptysis Cardiovascular: Denies: chest pain, palpitations, orthopnea, edema Gastrointestinal: Reports: abdominal pain, nausea, vomiting, diarrhea. Denies: constipation, melena, hematochezia Genitourinary: Denies: dysuria, hematuria Musculoskeletal: Denies: back pain Skin: Denies: rash Neurological: Denies: headache, weakness, numbness Past Medical History Past Medical History: Asthma Additional Past Medical History / Comment(s): Broken middle finger R hand History of Any Multi-Drug Resistant Organisms: None Reported Past Surgical History: Cholecystectomy Past Anesthesia/Blood Transfusion Reactions: No Reported Reaction Past Psychological History: Anxiety, Depression Smoking Status: Current every day smoker Past Alcohol Use History: Heavy Past Drug Use History: None Reported - Past Family History Mother History Unknown: Yes Father History Unknown: Yes General Exam Limitations: no limitations General appearance: alert, in no apparent distress Head exam: Present: atraumatic, normocephalic Eye exam: Present: normal appearance. Absent: scleral icterus, conjunctival injection ENT exam: Present: mucous membranes dry Neck exam: Present: normal inspection, full ROM. Absent: meningismus Respiratory exam: Present: respiratory distress (mild tachypnea), rhonchi. Absent: wheezes, rales, stridor Cardiovascular Exam: Present: normal rhythm, tachycardia, normal heart sounds. Absent: systolic murmur, diastolic murmur, rubs, gallop GI/Abdominal exam: Present: soft, tenderness (there is mild tenderness at the costal margin on the right side). Absent: distended, guarding, rebound, rigid, mass Extremities exam: Present: normal inspection, normal capillary refill. Absent: pedal edema, calf tenderness Back exam: Present: normal inspection. Absent: CVA tenderness (R), CVA tend erness (L) Neurological exam: Present: alert Skin exam: Present: warm, dry, intact, normal color. Absent: rash Course Vital Signs 02/22/20 02/22/20 02/22/20 02:23 02:57 05:03 Temperature 97.8 F Pulse Rate 139 H 123 H Pulse Rate [ 130 H Guide Cruise ] Respiratory 30 H 22 Rate Blood Pressure 153/83 159/114 O2 Sat by Pulse 99 98 Oximetry 02/22/20 05:40 Temperature 98.3 F Pulse Rate 129 H Pulse Rate [ Guide Cruise ] Respiratory 22 Rate Blood Pressure 159/112 O2 Sat by Pulse 98 Oximetry Medical Decision Making - Lab Data Result diagrams: 02/25/20 06:39 02/26/20 06:24 Lab Results 02/22/20 02/22/20 02/22/20 Range/Units 03:02 03:02 03:02 WBC 13.3 H (3.8-10.6) k/uL RBC 4.78 (3.80-5.40) m/uL Hgb 15.1 (11.4-16.0) gm/dL Hct 52.6 H (34.0-46.0) % MCV 110.1 H (80.0-100.0) fL MCH 31.7 (25.0-35.0) pg MCHC 28.8 L (31.0-37.0) g/dL RDW 17.3 H (11.5-15.5) % Plt Count 132 L (150-450) k/uL Neutrophils % (Manual) 88 % Band Neuts % (Manual) 2 % Lymphocytes % (Manual) 9 % Monocytes % (Manual) 1 % Neutrophils # (Manual) 11.90 H (1.3-7.7) k/uL Lymphocytes # (Manual) 1.20 (1.0-4.8) k/uL Monocytes # (Manual) 0.13 (0-1.0) k/uL Nucleated RBCs 1 H (0-0) /100 WBC Manual Slide Review Performed Hypochromasia Marked Anisocytosis Slight Macrocytosis Marked A D-Dimer 1.04 H (<0.60) mg/L FEU Sodium (137-145) mmol/L Potassium (3.5-5.1) mmol/L Chloride (98-107) mmol/L Carbon Dioxide (22-30) mmol/L Anion Gap mmol/L BUN (7-17) mg/dL Creatinine (0.52-1.04) mg/dL Est GFR (CKD-EPI)AfAm (>60 ml/min/1.73 sqM) Est GFR (CKD-EPI)NonAf (>60 ml/min/1.73 sqM) Glucose (74-99) mg/dL Lactic Ac Sepsis Rflx Plasma Lactic Acid Enzo (0.7-2.0) mmol/L Calcium (8.4-10.2) mg/dL Magnesium (1.6-2.3) mg/dL Total Bilirubin (0.2-1.3) mg/dL AST (14-36) U/L ALT (4-34) U/L Alkaline Phosphatase (38-126) U/L Troponin I (0.000-0.034) ng/mL Total Protein (6.3-8.2) g/dL Albumin (3.5-5.0) g/dL Urine Color Urine Appearance (Clear) Urine pH (5.0-8.0) Ur Specific [place] (1.001-1.035) Urine Protein (Negative) Urine Glucose (UA) (Negative) Urine Ketones (Negative) Urine Blood (Negative) Urine Nitrite (Negative) Urine Bilirubin (Negative) Urine Urobilinogen (<2.0) mg/dL Ur Leukocyte Esterase (Negative) Urine RBC (0-5) /hpf Urine WBC (0-5) /hpf Ur Squamous Epith Cells (0-4) /hpf Urine Bacteria (None) /hpf Hyaline Casts (0-2) /lpf Urine Mucus (None) /hpf Urine HCG, Qual (Not Detectd) Urine Opiates Screen Not Detected (NotDetected) Ur Oxycodone Screen Not Detected (NotDetected) Urine Methadone Screen Not Detected (NotDetected) Ur Propoxyphene Screen Not Detected (NotDetected) Ur Barbiturates Screen Not Detected (NotDetected) U Tricyclic Antidepress Not Detected (NotDetected) Ur Phencyclidine Scrn Not Detected (NotDetected) Ur Amphetamines Screen Not Detected (NotDetected) U Methamphetamines Scrn Not Detected (NotDetected) U Benzodiazepines Scrn Not Detected (NotDetected) Urine Cocaine Screen Not Detected (NotDetected) U Marijuana (THC) Screen Detected H (NotDetected) Serum Alcohol mg/dL Coronavirus (PCR) (Not Detectd) Hepatitis A IgM Ab (Non-Reactive) Hep Bs Antigen (Non-Reactive) Hep B Core IgM Ab (Non-Reactive) Hep C IgG Ab (Non-Reactive) Mycoplasma pneumon IgG (<=0.90) INDEX Mycoplasma pneumon IgM (<=0.90) INDEX 02/22/20 02/22/20 02/22/20 Range/Units 03:02 03:02 03:02 WBC (3.8-10.6) k/uL RBC (3.80-5.40) m/uL Hgb (11.4-16.0) gm/dL Hct (34.0-46.0) % MCV (80.0-100.0) fL MCH (25.0-35.0) pg MCHC (31.0-37.0) g/dL RDW (11.5-15.5) % Plt Count (150-450) k/uL Neutrophils % (Manual) % Band Neuts % (Manual) % Lymphocytes % (Manual) % Monocytes % (Manual) % Neutrophils # (Manual) (1.3-7.7) k/uL Lymphocytes # (Manual) (1.0-4.8) k/uL Monocytes # (Manual) (0-1.0) k/uL Nucleated RBCs (0-0) /100 WBC Manual Slide Review Hypochromasia Anisocytosis Macrocytosis D-Dimer (<0.60) mg/L FEU Sodium 138 (137-145) mmol/L Potassium 5.2 H (3.5-5.1) mmol/L Chloride 99 (98-107) mmol/L Carbon Dioxide <5 L* (22-30) mmol/L Anion Gap mmol/L BUN 5 L (7-17) mg/dL Creatinine 1.07 H (0.52-1.04) mg/dL Est GFR (CKD-EPI)AfAm 80 (>60 ml/min/1.73 sqM) Est GFR (CKD-EPI)NonAf 69 (>60 ml/min/1.73 sqM) Glucose 232 H (74-99) mg/dL Lactic Ac Sepsis Rflx Plasma Lactic Acid Enzo (0.7-2.0) mmol/L Calcium 10.0 (8.4-10.2) mg/dL Magnesium 2.2 (1.6-2.3) mg/dL Total Bilirubin 1.5 H (0.2-1.3) mg/dL AST 453 H (14-36) U/L ALT 157 H (4-34) U/L Alkaline Phosphatase 428 H (38-126) U/L Troponin I (0.000-0.034) ng/mL Total Protein 10.0 H (6.3-8.2) g/dL Albumin 5.6 H (3.5-5.0) g/dL Urine Color Yellow Urine Appearance Cloudy H (Clear) Urine pH 6.0 (5.0-8.0) Ur Specific [place] 1.021 (1.001-1.035) Urine Protein 3+ H (Negative) Urine Glucose (UA) Negative (Negative) Urine Ketones 4+ H (Negative) Urine Blood Small H (Negative) Urine Nitrite Negative (Negative) Urine Bilirubin 1+ H (Negative) Urine Urobilinogen 3.0 (<2.0) mg/dL Ur Leukocyte Esterase Negative (Negative) Urine RBC 44 H (0-5) /hpf Urine WBC 6 H (0-5) /hpf Ur Squamous Epith Cells 3 (0-4) /hpf Urine Bacteria Moderate H (None) /hpf Hyaline Casts 212 H (0-2) /lpf Urine Mucus Rare H (None) /hpf Urine HCG, Qual Not Detected (Not Detectd) Urine Opiates Screen (NotDetected) Ur Oxycodone Screen (NotDetected) Urine Methadone Screen (NotDetected) Ur Propoxyphene Screen (NotDetected) Ur Barbiturates Screen (NotDetected) U Tricyclic Antidepress (NotDetected) Ur Phencyclidine Scrn (NotDetected) Ur Amphetamines Screen (NotDetected) U Methamphetamines Scrn (NotDetected) U Benzodiazepines Scrn (NotDetected) Urine Cocaine Screen (NotDetected) U Marijuana (THC) Screen (NotDetected) Serum Alcohol <10 mg/dL Coronavirus (PCR) (Not Detectd) Hepatitis A IgM Ab (Non-Reactive) Hep Bs Antigen (Non-Reactive) Hep B Core IgM Ab (Non-Reactive) Hep C IgG Ab (Non-Reactive) Mycoplasma pneumon IgG (<=0.90) INDEX Mycoplasma pneumon IgM (<=0.90) INDEX 02/22/20 02/22/20 02/22/20 Range/Units 03:02 03:02 03:02 WBC (3.8-10.6) k/uL RBC (3.80-5.40) m/uL Hgb (11.4-16.0) gm/dL Hct (34.0-46.0) % MCV (80.0-100.0) fL MCH (25.0-35.0) pg MCHC (31.0-37.0) g/dL RDW (11.5-15.5) % Plt Count (150-450) k/uL Neutrophils % (Manual) % Band Neuts % (Manual) % Lymphocytes % (Manual) % Monocytes % (Manual) % Neutrophils # (Manual) (1.3-7.7) k/uL Lymphocytes # (Manual) (1.0-4.8) k/uL Monocytes # (Manual) (0-1.0) k/uL Nucleated RBCs (0-0) /100 WBC Manual Slide Review Hypochromasia Anisocytosis Macrocytosis D-Dimer (<0.60) mg/L FEU Sodium (137-145) mmol/L Potassium (3.5-5.1) mmol/L Chloride (98-107) mmol/L Carbon Dioxide (22-30) mmol/L Anion Gap mmol/L BUN (7-17) mg/dL Creatinine (0.52-1.04) mg/dL Est GFR (CKD-EPI)AfAm (>60 ml/min/1.73 sqM) Est GFR (CKD-EPI)NonAf (>60 ml/min/1.73 sqM) Glucose (74-99) mg/dL Lactic Ac Sepsis Rflx Plasma Lactic Acid Enzo 2.1 H* (0.7-2.0) mmol/L Calcium (8.4-10.2) mg/dL Magnesium (1.6-2.3) mg/dL Total Bilirubin (0.2-1.3) mg/dL AST (14-36) U/L ALT (4-34) U/L Alkaline Phosphatase (38-126) U/L Troponin I <0.012 (0.000-0.034) ng/mL Total Protein (6.3-8.2) g/dL Albumin (3.5-5.0) g/dL Urine Color Urine Appearance (Clear) Urine pH (5.0-8.0) Ur Specific [place] (1.001-1.035) Urine Protein (Negative) Urine Glucose (UA) (Negative) Urine Ketones (Negative) Urine Blood (Negative) Urine Nitrite (Negative) Urine Bilirubin (Negative) Urine Urobilinogen (<2.0) mg/dL Ur Leukocyte Esterase (Negative) Urine RBC (0-5) /hpf Urine WBC (0-5) /hpf Ur Squamous Epith Cells (0-4) /hpf Urine Bacteria (None) /hpf Hyaline Casts (0-2) /lpf Urine Mucus (None) /hpf Urine HCG, Qual (Not Detectd) Urine Opiates Screen (NotDetected) Ur Oxycodone Screen (NotDetected) Urine Methadone Screen (NotDetected) Ur Propoxyphene Screen (NotDetected) Ur Barbiturates Screen (NotDetected) U Tricyclic Antidepress (NotDetected) Ur Phencyclidine Scrn (NotDetected) Ur Amphetamines Screen (NotDetected) U Methamphetamines Scrn (NotDetected) U Benzodiazepines Scrn (NotDetected) Urine Cocaine Screen (NotDetected) U Marijuana (THC) Screen (NotDetected) Serum Alcohol mg/dL Coronavirus (PCR) (Not Detectd) Hepatitis A IgM Ab (Non-Reactive) Hep Bs Antigen (Non-Reactive) Hep B Core IgM Ab (Non-Reactive) Hep C IgG Ab (Non-Reactive) Mycoplasma pneumon IgG 2.48 H (<=0.90) INDEX Mycoplasma pneumon IgM 0.66 (<=0.90) INDEX 02/22/20 02/22/20 02/22/20 Range/Units 03:02 03:32 04:55 WBC (3.8-10.6) k/uL RBC (3.80-5.40) m/uL Hgb (11.4-16.0) gm/dL Hct (34.0-46.0) % MCV (80.0-100.0) fL MCH (25.0-35.0) pg MCHC (31.0-37.0) g/dL RDW (11.5-15.5) % Plt Count (150-450) k/uL Neutrophils % (Manual) % Band Neuts % (Manual) % Lymphocytes % (Manual) % Monocytes % (Manual) % Neutrophils # (Manual) (1.3-7.7) k/uL Lymphocytes # (Manual) (1.0-4.8) k/uL Monocytes # (Manual) (0-1.0) k/uL Nucleated RBCs (0-0) /100 WBC Manual Slide Review Hypochromasia Anisocytosis Macrocytosis D-Dimer (<0.60) mg/L FEU Sodium (137-145) mmol/L Potassium (3.5-5.1) mmol/L Chloride (98-107) mmol/L Carbon Dioxide (22-30) mmol/L Anion Gap mmol/L BUN (7-17) mg/dL Creatinine (0.52-1.04) mg/dL Est GFR (CKD-EPI)AfAm (>60 ml/min/1.73 sqM) Est GFR (CKD-EPI)NonAf (>60 ml/min/1.73 sqM) Glucose (74-99) mg/dL Lactic Ac Sepsis Rflx Y Plasma Lactic Acid Enzo (0.7-2.0) mmol/L Calcium (8.4-10.2) mg/dL Magnesium (1.6-2.3) mg/dL Total Bilirubin (0.2-1.3) mg/dL AST (14-36) U/L ALT (4-34) U/L Alkaline Phosphatase (38-126) U/L Troponin I (0.000-0.034) ng/mL Total Protein (6.3-8.2) g/dL Albumin (3.5-5.0) g/dL Urine Color Urine Appearance (Clear) Urine pH (5.0-8.0) Ur Specific [place] (1.001-1.035) Urine Protein (Negative) Urine Glucose (UA) (Negative) Urine Ketones (Negative) Urine Blood (Negative) Urine Nitrite (Negative) Urine Bilirubin (Negative) Urine Urobilinogen (<2.0) mg/dL Ur Leukocyte Esterase (Negative) Urine RBC (0-5) /hpf Urine WBC (0-5) /hpf Ur Squamous Epith Cells (0-4) /hpf Urine Bacteria (None) /hpf Hyaline Casts (0-2) /lpf Urine Mucus (None) /hpf Urine HCG, Qual (Not Detectd) Urine Opiates Screen (NotDetected) Ur Oxycodone Screen (NotDetected) Urine Methadone Screen (NotDetected) Ur Propoxyphene Screen (NotDetected) Ur Barbiturates Screen (NotDetected) U Tricyclic Antidepress (NotDetected) Ur Phencyclidine Scrn (NotDetected) Ur Amphetamines Screen (NotDetected) U Methamphetamines Scrn (NotDetected) U Benzodiazepines Scrn (NotDetected) Urine Cocaine Screen (NotDetected) U Marijuana (THC) Screen (NotDetected) Serum Alcohol mg/dL Coronavirus (PCR) Not Detected (Not Detectd) Hepatitis A IgM Ab Non-Reactive (Non-Reactive) Hep Bs Antigen Non-Reactive (Non-Reactive) Hep B Core IgM Ab Non-Reactive (Non-Reactive) Hep C IgG Ab Non-Reactive (Non-Reactive) Mycoplasma pneumon IgG (<=0.90) INDEX Mycoplasma pneumon IgM (<=0.90) INDEX Disposition Clinical Impression: Pneumonia, Lactic acidosis, Alcoholism, Abdominal pain Narrative: Possible colitis Disposition: ADMITTED IP TO THIS [facility] Condition: Serious
[2020-02-22] MEDS ORDERED: traMADol 50 MG TAB PO PRN (11:03)
[2020-02-22] MEDS ORDERED: HYDROcodone/APAP 10-325MG 1 EACH TAB PO PRN (11:03)
[2020-02-22] MEDS ORDERED: ONDANSETRON 4 MG/2 ML VIAL IVP PRN (11:06)
[2020-02-22] MEDS ORDERED: MAGNESIUM SULFATE-D5W PMX 1 GM in DEXTROSE/WATER 1 100ML.BAG IVPB SCH (11:15)
[2020-02-22 12:09] LABS: African American GFR (CKD) >90 (>60 ml/min/1.73 sqM); Anion Gap 18 mmol/L; Blood Urea Nitrogen 3 mg/dL (7-17); Calcium 8.8 mg/dL (8.4-10.2); Chloride 106 mmol/L (98-107); Glucose 137 mg/dL (74-99); Non-African American GFR(CKD) >90 (>60 ml/min/1.73 sqM); Potassium 4.4 mmol/L (3.5-5.1); Sodium 132 mmol/L (137-145)
[2020-02-22 12:11] LABS: Carbon Dioxide 8 mmol/L (22-30)
--- NOTE | 2020-02-22 12:32 | P.HPIM ---
History of Present Illness 32-year-old female came in with multiple symptoms including the retrosternal pain she is unable to characterize it very well with abdominal pain predominantly in the upper quadrants although not able to clearly localize the pain. patient was complaining of nausea and retching and vomiting yesterday. had history of alcohol abuse in the past although she denies using any alcohol recently. But as per the patient patient is unable to keep keep down much. Patient has severe anion gap metabolic acidosis etiology of the current epilepticus versus not. Patient had milder lactic acidosis. Patient had a cholecystectomy in the past patient has history of prescription drug abuse for which patient is on Suboxone. Patient a CAT scan of the chest which was suspicious for atypical infiltrate which was read as suspicious for covid 19, although covid 19 PCR is negativethe patient doesn't have any fever or leukocytosis. CAT scan of the abdomen was done which showed esophagitis and the diffuse colitis. Because of these reasons patient will be started on levofloxacin and metronidazole as I cannot completely rule out atypical pneumonia. Rocephin and azithromycin will be discontinued. Review of Systems REVIEW OF SYSTEMS: CONSTITUTIONAL: No fever, no malaise, no fatigue. HEENT: No recent visual problems or hearing problems. Denied any sore throat. CARDIOVASCULAR: No orthopnea, PND, no palpitations, no syncope. PULMONARY: No shortness of breath, no cough, no hemoptysis. GASTROINTESTINAL: as mentioned in HPI NEUROLOGICAL: No headaches, no weakness, no numbness. HEMATOLOGICAL: Denies any bleeding or petechiae. GENITOURINARY: Denies any burning micturition, frequency, or urgency. MUSCULOSKELETAL/RHEUMATOLOGICAL: Denies any joint pain, swelling, or any muscle pain. ENDOCRINE: Denies any polyuria or polydipsia. The rest of the 14-point review of systems is negative. Past Medical History Past Medical History: Asthma Additional Past Medical History / Comment(s): Broken middle finger R hand History of Any Multi-Drug Resistant Organisms: None Reported Past Surgical History: Cholecystectomy Past Anesthesia/Blood Transfusion Reactions: No Reported Reaction Smoking Status: Current every day smoker - Past Family History Mother History Unknown: Yes Father History Unknown: Yes Medications and Allergies Home Medications Medication Instructions Recorded Confirmed Type Buprenorphine HCl/Naloxone HCl 0.5 film SL HS 08/31/19 02/22/20 History [Suboxone 4 mg-1 mg Sl Film] Buprenorphine HCl/Naloxone HCl 1 film SL DAILY 08/31/19 02/22/20 History [Suboxone 4 mg-1 mg Sl Film] busPIRone HCL 15 mg PO BID 08/31/19 02/22/20 History Venlafaxine HCl [Effexor XR] 75 mg PO DAILY 02/22/20 02/22/20 History Allergies Allergy/AdvReac Type Severity Reaction Status Date / Time No Known Allergies Allergy Verified 02/22/20 08:32 Physical Exam Vitals: Vital Signs Temp Pulse Pulse Resp BP BP Pulse Ox 02/22/20 07:57 97.6 F 125 H 22 141/77 98 02/22/20 06:46 98.9 F 134 H 144/75 95 02/22/20 05:40 98.3 F 129 H 22 159/112 98 02/22/20 05:03 123 H 22 159/114 98 02/22/20 02:57 130 H 02/22/20 02:23 97.8 F 139 H 30 H 153/83 99 Intake and Output 02/21/20 02/22/20 02/22/20 22:59 06:59 14:59 Other: Weight 81.647 kg PHYSICAL EXAMINATION: GENERAL: The patient is alert and oriented x3, not in any acute distress. Well developed, well nourished. HEENT: Pupils are round and equally reacting to light. EOMI. No scleral icterus. No conjunctival pallor. Normocephalic, atraumatic. No pharyngeal erythema. No thyromegaly. CARDIOVASCULAR: S1 and S2 present. No murmurs, rubs, or gallops. PULMONARY: Chest is clear to auscultation, no wheezing or crackles. ABDOMEN: Soft, nontender, nondistended, normoactive bowel sounds. No palpable organomegaly. MUSCULOSKELETAL: No joint swelling or deformity. EXTREMITIES: No cyanosis, clubbing, or pedal edema. NEUROLOGICAL: Gross neurological examination did not reveal any focal deficits. SKIN: No rashes. Results CBC & Chem 7: 02/22/20 03:02 02/22/20 11:26 Labs: Abnormal Lab Results - Last 24 Hours (Table) 02/22/20 02/22/20 02/22/20 Range/Units 03:02 03:02 03:02 WBC 13.3 H (3.8-10.6) k/uL Hct 52.6 H (34.0-46.0) % MCV 110.1 H (80.0-100.0) fL MCHC 28.8 L (31.0-37.0) g/dL RDW 17.3 H (11.5-15.5) % Plt Count 132 L (150-450) k/uL Neutrophils # (Manual) 11.90 H (1.3-7.7) k/uL Nucleated RBCs 1 H (0-0) /100 WBC Macrocytosis Marked A D-Dimer 1.04 H (<0.60) mg/L FEU Sodium (137-145) mmol/L Potassium (3.5-5.1) mmol/L Carbon Dioxide (22-30) mmol/L BUN (7-17) mg/dL Creatinine (0.52-1.04) mg/dL Glucose (74-99) mg/dL Plasma Lactic Acid Enzo (0.7-2.0) mmol/L Total Bilirubin (0.2-1.3) mg/dL AST (14-36) U/L ALT (4-34) U/L Alkaline Phosphatase (38-126) U/L Total Protein (6.3-8.2) g/dL Albumin (3.5-5.0) g/dL Urine Appearance (Clear) Urine Protein (Negative) Urine Ketones (Negative) Urine Blood (Negative) Urine Bilirubin (Negative) Urine RBC (0-5) /hpf Urine WBC (0-5) /hpf Urine Bacteria (None) /hpf Hyaline Casts (0-2) /lpf Urine Mucus (None) /hpf U Marijuana (THC) Screen Detected H (NotDetected) 02/22/20 02/22/20 02/22/20 Range/Units 03:02 03:02 03:02 WBC (3.8-10.6) k/uL Hct (34.0-46.0) % MCV (80.0-100.0) fL MCHC (31.0-37.0) g/dL RDW (11.5-15.5) % Plt Count (150-450) k/uL Neutrophils # (Manual) (1.3-7.7) k/uL Nucleated RBCs (0-0) /100 WBC Macrocytosis D-Dimer (<0.60) mg/L FEU Sodium (137-145) mmol/L Potassium 5.2 H (3.5-5.1) mmol/L Carbon Dioxide <5 L* (22-30) mmol/L BUN 5 L (7-17) mg/dL Creatinine 1.07 H (0.52-1.04) mg/dL Glucose 232 H (74-99) mg/dL Plasma Lactic Acid Enzo 2.1 H* (0.7-2.0) mmol/L Total Bilirubin 1.5 H (0.2-1.3) mg/dL AST 453 H (14-36) U/L ALT 157 H (4-34) U/L Alkaline Phosphatase 428 H (38-126) U/L Total Protein 10.0 H (6.3-8.2) g/dL Albumin 5.6 H (3.5-5.0) g/dL Urine Appearance Cloudy H (Clear) Urine Protein 3+ H (Negative) Urine Ketones 4+ H (Negative) Urine Blood Small H (Negative) Urine Bilirubin 1+ H (Negative) Urine RBC 44 H (0-5) /hpf Urine WBC 6 H (0-5) /hpf Urine Bacteria Moderate H (None) /hpf Hyaline Casts 212 H (0-2) /lpf Urine Mucus Rare H (None) /hpf U Marijuana (THC) Screen (NotDetected) 02/22/20 Range/Units 11:26 WBC (3.8-10.6) k/uL Hct (34.0-46.0) % MCV (80.0-100.0) fL MCHC (31.0-37.0) g/dL RDW (11.5-15.5) % Plt Count (150-450) k/uL Neutrophils # (Manual) (1.3-7.7) k/uL Nucleated RBCs (0-0) /100 WBC Macrocytosis D-Dimer (<0.60) mg/L FEU Sodium 132 L (137-145) mmol/L Potassium (3.5-5.1) mmol/L Carbon Dioxide 8 L* (22-30) mmol/L BUN 3 L (7-17) mg/dL Creatinine (0.52-1.04) mg/dL Glucose 137 H (74-99) mg/dL Plasma Lactic Acid Enzo (0.7-2.0) mmol/L Total Bilirubin (0.2-1.3) mg/dL AST (14-36) U/L ALT (4-34) U/L Alkaline Phosphatase (38-126) U/L Total Protein (6.3-8.2) g/dL Albumin (3.5-5.0) g/dL Urine Appearance (Clear) Urine Protein (Negative) Urine Ketones (Negative) Urine Blood (Negative) Urine Bilirubin (Negative) Urine RBC (0-5) /hpf Urine WBC (0-5) /hpf Urine Bacteria (None) /hpf Hyaline Casts (0-2) /lpf Urine Mucus (None) /hpf U Marijuana (THC) Screen (NotDetected) Thrombosis Risk Factor Assmnt - Choose All That Apply Any of the Below Risk Factors Present?: Yes Each Factor Represents 1 point: Obesity (BMI >25) Other Risk Factors: No Thrombosis Risk Factor Assessment Total Risk Factor Score: 1 Thrombosis Risk Factor Assessment Level: Low Risk Assessment and Plan Plan: -odynophagia: Most probably secondary to esophagitis which is from alcoholism. Patient will be started on Protonix twice a day and -Pancolitis: Patient will be started treated for infectious colitis with the levofloxacin and metronidazole. Will order lipase to rule out any pancreatitis CT did not show any pancreatic edema. -Diffuse nonspecific infiltrate in the lungs: I cannot completely rule out atypical pneumonia a lot of mycoplasma antibody testing and Legionella urinary antigen.Covid was ruled out -severe anion gapmetabolic acidosis: Etiology is not clear. Patient is not diabetic patient's previous hemoglobin is only 4.9 but we'll still order urinary ketones. Aspirin patient's history patient didn't drink alcohol recently he did part of her anion gap metabolic acidosis may be related to alcoholism part of which is secondary to lacticacidosis. we will get acetone levels as well. There may be a competent of noniron gap at work acidosis secondary to hyperchloremia -Hyperkalemia secondary to acute renal failure which improved - acute renal failure prerenal azotemia secondary to intravascular volume and patient dehydration which improved. -Elevated liver enzymes: Secondary to alcoholic hepatitis will also obtain hepatitis panel -hypovolemic hyponatremia IV fluids as mentioned above -history of nicotine abuse and marijuana use: Counseling was provided -Patient was started on alcohol withdrawal precautions with Ativan. Although patient states she didn't drink for last few days. -History of prescription drug abuse in the past -DVT prophylaxis with Lovenox
[2020-02-22 12:35] LABS: Glucose,Whole Blood 139 mg/dL (75-99)
[2020-02-22 12:37] LABS: Lipase 5232 U/L (23-300)
[2020-02-22] MEDS: NON FORMULARY DRUG (Buprenorphine Hcl/Naloxone Hcl [Suboxone 4 Mg-1 Mg Sl Film] 1 EACH Fil SUBLINGUAL SCH ×2 (13:06→20:25)
[2020-02-22] MEDS: metroNIDAZOLE-NS PMX 500 MG in SALINE 1 100ML.BAG IVPB SCH ×2 (13:20→20:20)
[2020-02-22] MEDS: PANTOPRAZOLE 40 MG/10 ML VIAL IVP SCH ×2 (13:20→20:20)
[2020-02-22] MEDS: SODIUM CHLORIDE 0.9% 1,000 ML IV SCH ×2 (13:21→23:16)
[2020-02-22] MEDS: LEVOFLOXACIN 500MG-D5W PMX 500 MG in DEXTROSE/WATER 1 100ML.BAG IVPB SCH (14:13)
[2020-02-22 16:22] LABS: Glucose,Whole Blood 127 mg/dL (75-99)
[2020-02-22] MEDS: THIAMINE 100 MG TAB PO SCH (17:00)
[2020-02-22] MEDS: MORPHINE SULFATE 4 MG/ML SYRINGE IVP PRN ×2 (17:30→21:39)
[2020-02-22 17:43] LABS: Hepatitis A Antibody IgM Non-Reactive (Non-Reactive); Hepatitis B Core IgM Non-Reactive (Non-Reactive); Hepatitis B Surface Antigen Non-Reactive (Non-Reactive); Hepatitis C IgG Antibody Non-Reactive (Non-Reactive)
[2020-02-22] MEDS: busPIRone HCl 10 MG TAB PO SCH (20:25)
[2020-02-22 21:38] LABS: Glucose,Whole Blood 102 mg/dL (75-99)
[2020-02-23] MEDS: MORPHINE SULFATE 4 MG/ML SYRINGE IVP PRN ×5 (01:43→20:19)
[2020-02-23] MEDS: metroNIDAZOLE-NS PMX 500 MG in SALINE 1 100ML.BAG IVPB SCH ×3 (04:00→20:19)
[2020-02-23] MEDS: SODIUM CHLORIDE 0.9% 1,000 ML IV SCH ×2 (05:05→13:41)
[2020-02-23] MEDS ORDERED: AZITHROMYCIN 500 MG TAB PO SCH (05:34)
[2020-02-23 06:59] LABS: Glucose,Whole Blood 93 mg/dL (75-99)
[2020-02-23] MEDS ORDERED: ACETAMINOPHEN IV (For NPO) 1,000 MG in EMPTY BAG 1 BAG IVPB PRN (07:52)
[2020-02-23] MEDS: NON FORMULARY DRUG (Buprenorphine Hcl/Naloxone Hcl [Suboxone 4 Mg-1 Mg Sl Film] 1 EACH Fil SUBLINGUAL SCH ×2 (08:04→20:07)
[2020-02-23] MEDS: THIAMINE 100 MG TAB PO SCH ×2 (08:04→17:25)
[2020-02-23] MEDS: VENLAFAXINE HCL ER 75 MG CAP PO SCH (08:04)
[2020-02-23] MEDS: busPIRone HCl 10 MG TAB PO SCH ×2 (08:04→20:20)
[2020-02-23] MEDS: ENOXAPARIN 40 MG/0.4 ML SYRINGE SQ SCH (08:32)
[2020-02-23] MEDS: PANTOPRAZOLE 40 MG/10 ML VIAL IVP SCH ×2 (08:32→20:19)
[2020-02-23 11:01] LABS: ALT 80 U/L (8-44); AST 131 U/L (13-35); African American GFR (CKD) 113.1 (60.0-200.0); Albumin/Globulin Ratio 1.95 (1.60-3.17); Alkaline Phosphatase 259 U/L (41-126); Blood Urea Nitrogen <5.0 mg/dL (9.0-27.0); Chloride 106 mmol/L (96-109); Glucose 72 mg/dL (70-110); Non-African American GFR(CKD) 97.6 (60.0-200.0); Potassium 3.2 mmol/L (3.5-5.5); Sodium 138 mmol/L (135-145); Total Bilirubin 0.9 mg/dL (0.2-1.2); Total Protein 5.9 g/dL (6.2-8.2)
[2020-02-23] MEDS: POTASSIUM CHLORIDE ER 20 MEQ TAB.ER PO SCH ×2 (11:25→13:40)
[2020-02-23 11:43] LABS: Glucose,Whole Blood 81 mg/dL (75-99)
[2020-02-23] MEDS: LEVOFLOXACIN 500MG-D5W PMX 500 MG in DEXTROSE/WATER 1 100ML.BAG IVPB SCH (12:41)
[2020-02-23 12:45] LABS: Carbon Dioxide <10.0 mmol/L (21.6-31.8)
[2020-02-23] MEDS: ALBUTEROL NEBULIZED 2.5 MG/3 ML INHALATION PRN (15:38)
[2020-02-23] MEDS: ACETAMINOPHEN TAB 325 MG TAB PO PRN (15:49)
--- NOTE | 2020-02-23 16:29 | P.PN ---
Subjective 34-year-old female came in with multiple symptoms including the retrosternal pain she is unable to characterize it very well with abdominal pain pre dominantly in the upper quadrants although not able to clearly localize the pain. patient was complaining of nausea and retching and vomiting yesterday. had history of alcohol abuse in the past although she denies using any alcohol recently. But as per the patient patient is unable to keep keep down much. Patient has severe anion gap metabolic acidosis etiology of the current epilepticus versus not. Patient had milder lactic acidosis. Patient had a cholecystectomy in the past patient has history of prescription drug abuse for which patient is on Suboxone. Patient a CAT scan of the chest which was suspicious for atypical infiltrate which was read as suspicious for covid 19, although covid 19 PCR is negativethe patient doesn't have any fever or leukocytosis. CAT scan of the abdomen was done which showed esophagitis and the diffuse colitis. Because of these reasons patient will be started on levofloxacin and metronidazole as I cannot completely rule out atypical pneumonia. Rocephin and azithromycin will be discontinued. 02/23/2020 Patient did have elevated lipase be after which patient was made nothing by mouth patient is hungry today abdominal pain improved patient was started on clear liquid diet. Repeat lipase is down to 235. Liver enzymes are improving. Patient's urinary Legionella antigen is negative mycoplasma antibodies pending patient doesn't appear to have pneumonia or atypical pneumonia. Patient is being treated for colitis. Patient's the metabolic acidosis is improving slowly. Patient does have a ketoacidosis which is probably starvation ketosis. Patient previous hemoglobin A1c was only 4.5. Patient overall doing much better today. Constitutional: Denied any fatigue denied any fever. Cardio vascular: denied any chest pain, palpitations Gastrointestinal improved abdominal pain improved nausea Pulmonary: Denied any shortness of breath cough Neurologic denied any new focal deficits All inpatient medications were reviewed and appropriate changes in these medications as dictated in the interval history and assessment and plan. Objective - Vital Signs Vital signs: Vital Signs Temp 100.3 F H 02/23/20 15:00 Pulse 100 02/23/20 15:49 Resp 18 02/23/20 15:00 BP 122/77 02/23/20 15:00 Pulse Ox 99 02/23/20 15:00 Intake & Output 02/22/20 02/23/20 02/23/20 18:59 06:59 18:59 Intake Total 1600 Output Total 600 Balance -600 1600 Intake: Intake, IV Titration 1600 Amount Sodium Chloride 0.9% 1, 1500 000 ml @ 125 mls/hr IV . Q8H DOUG Rx#:[id number] metroNIDAZOLE-NS PMX 500 100 mg In Saline 1 100ml.bag @ 100 mls/hr IVPB Q8H DOUG Rx#:[id number] Oral 0 Output: Urine 600 Other: Voiding Method Toilet # Voids 1 2 3 # Bowel Movements 0 - Exam PHYSICAL EXAMINATION: GENERAL: The patient is alert and oriented x3, not in any acute distress. Well developed, well nourished. HEENT: Pupils are round and equally reacting to light. EOMI. No scleral icterus. No conjunctival pallor. Normocephalic, atraumatic. No pharyngeal erythema. No thyromegaly. CARDIOVASCULAR: S1 and S2 present. No murmurs, rubs, or gallops. PULMONARY: Chest is clear to auscultation, no wheezing or crackles. ABDOMEN: Soft, nontender, nondistended, normoactive bowel sounds. No palpable organomegaly. MUSCULOSKELETAL: No joint swelling or deformity. EXTREMITIES: No cyanosis, clubbing, or pedal edema. NEUROLOGICAL: Gross neurological examination did not reveal any focal deficits. SKIN: No rashes. - Labs CBC & Chem 7: 02/22/20 03:02 02/23/20 05:53 Labs: Abnormal Lab Results - Last 24 Hours (Table) 02/22/20 02/23/20 02/23/20 Range/Units 21:36 05:53 05:53 Potassium 3.2 L (3.5-5.5) mmol/L Carbon Dioxide <10.0 L* (21.6-31.8) mmol/L BUN <5.0 L (9.0-27.0) mg/dL POC Glucose (mg/dL) 102 H (75-99) mg/dL AST 131 H (13-35) U/L ALT 80 H (8-44) U/L Alkaline Phosphatase 259 H (41-126) U/L Total Protein 5.9 L (6.2-8.2) g/dL Lipase 235 H (14-63) U/L Microbiology - Last 24 Hours (Table) 02/22/20 05:33 Gram Stain - Preliminary Sputum Sputum Culture - Preliminary 02/22/20 03:53 Blood Culture - Preliminary Blood No Growth after 24 hours Assessment and Plan Plan: -odynophagia: Most probably secondary to esophagitis which is from alcoholism. Patient will be started on Protonix twice a day and -Pancolitis: Patient will be started treated for infectious colitis with the levofloxacin and metronidazole. -Acute alcoholic pancreatitis: Improved symptoms patient is being resumed on diet continue with IV fluids -Sepsis secondary to colitis, low possibility of pneumonia.Covid was ruled out -severe anion gapmetabolic acidosis: Multifactorial, improving. Secondary to lactic is doses which improved, starvation ketosis improving, alcoholism. -Hyperkalemia secondary to acute renal failure which improved - acute renal failure prerenal azotemia secondary to intravascular volume and patient dehydration which improved. -Elevated liver enzymes: Secondary to alcoholic hepatitis , improving liver enzymes -hypovolemic hyponatremia improved with IV fluids -history of nicotine abuse and marijuana use: Counseling was provided -Patient was started on alcohol withdrawal precautions with Ativan. Although patient states she didn't drink for last few days. No alcohol withdrawals at this time -History of prescription drug abuse in the past -DVT prophylaxis with Lovenox
[2020-02-23 17:34] LABS: Glucose,Whole Blood 112 mg/dL (75-99)
[2020-02-23 20:26] LABS: Glucose,Whole Blood 124 mg/dL (75-99)
--- NOTE | 2020-02-23 22:52 | P.CONS ---
History of Present Illness - Reason for Consult Consult date: 02/23/20 odynophagia Requesting physician: Michelle Hinton - Chief Complaint nausea, vomiting,diarrhea and abdominal pain - History of Present Illness 34-year-old female with multiple medical comorbiditiesincluding history of heavy alcohol abuse, who presents to the hospital with a constellation of symptoms including nausea, vomiting abdominal pain and diarrhea. The patient reports symptoms which hasn't been persistent over the past 3 days. She reports multiple episodes of nausea, vomiting and retching. She also reports frequent loose nonbloody bowel movements. She is status post cholecystectomy in the past. On presentation patient had computed tomography scan of the abdomen with findings of a fatty liver, esophagitis,as well as findings of diffuse colonic wall thickening suggestive of colitis. Lipase was markedly elevated on presentation at 5232. She had elevated liver enzymes which have improved today with total bilirubin 0.9, alkaline phosphatase 259, AST 131 and ALT 80. Acute viral hepatitis panel testing negative. Hemoglobin stable at 15.1. Patient complained of some difficulty swallowing on presentation. She feels this is secondary to reflux and has been started on PPI with improvement in her symptoms. Review of Systems REVIEW OF SYSTEMS: CONSTITUTIONAL: Denies any fevers, chills, weight change or fatigue. CARDIOVASCULAR: Denies any chest pain, palpitations high or low blood pressures RESPIRATORY: Denies any shortness of breath, hemoptysis or cough. GENITOURINARY: No dysuria or hematuria. MUSCULOSKELETAL: No weakness reported. SKIN: Denies any new rashes or lesions, jaundice or pallor. PSYCHIATRIC: Denies any depression or anxiety, she does have a history of alcohol abuse. NEUROLOGY: Denies headache, denies any new focal deficits. EARS/NOSE/THROAT: No recent hearing change, congestion, nasal discharge or sore throat. EYES: No pain in eyes, discharge or change in vision. GASTROINTESTINAL: As per HPI. Past Medical History Past Medical History: Asthma Additional Past Medical History / Comment(s): Broken middle finger R hand History of Any Multi-Drug Resistant Organisms: None Reported Past Surgical History: Cholecystectomy Past Anesthesia/Blood Transfusion Reactions: No Reported Reaction Smoking Status: Current every day smoker - Past Family History Mother History Unknown: Yes Father History Unknown: Yes Medications and Allergies Home Medications Medication Instructions Recorded Confirmed Type Buprenorphine HCl/Naloxone HCl 0.5 film SL HS 08/31/19 02/22/20 History [Suboxone 4 mg-1 mg Sl Film] Buprenorphine HCl/Naloxone HCl 1 film SL DAILY 08/31/19 02/22/20 History [Suboxone 4 mg-1 mg Sl Film] busPIRone HCL 15 mg PO BID 08/31/19 02/22/20 History Venlafaxine HCl [Effexor XR] 75 mg PO DAILY 02/22/20 02/22/20 History Allergies Allergy/AdvReac Type Severity Reaction Status Date / Time No Known Allergies Allergy Verified 02/22/20 08:32 Physical Exam Vitals: Vital Signs Temp Pulse Pulse Resp BP BP Pulse Ox 02/22/20 07:57 97.6 F 125 H 22 141/77 98 02/22/20 06:46 98.9 F 134 H 144/75 95 02/22/20 05:40 98.3 F 129 H 22 159/112 98 02/22/20 05:03 123 H 22 159/114 98 02/22/20 02:57 130 H 02/22/20 02:23 97.8 F 139 H 30 H 153/83 99 Intake and Output 02/21/20 02/22/20 02/22/20 22:59 06:59 14:59 Other: Weight 81.647 kg On physical examination, patient appears comfortable in no apparent distress. HEAD: Normocephalic, atraumatic. EYES: No scleral icterus. No conjunctival injection. MOUTH: No lesions, tongue midline. NECK: Trachea midline, no gross abnormalities. CHEST: Clear to auscultation with no wheezing or rhonchi appreciated. HEART: Regular rate and rhythm. ABDOMEN: Soft, obese. Bowel sounds are positive. No organomegaly. No guarding or rigidity. EXTREMITIES: No pedal edema. SKIN: No rashes, no jaundice. NEUROLOGIC: Alert and oriented x3. No focal deficits. Results CBC & Chem 7: 02/22/20 03:02 02/23/20 05:53 Labs: Abnormal Lab Results - Last 24 Hours (Table) 02/22/20 02/22/20 02/22/20 Range/Units 03:02 03:02 03:02 WBC 13.3 H (3.8-10.6) k/uL Hct 52.6 H (34.0-46.0) % MCV 110.1 H (80.0-100.0) fL MCHC 28.8 L (31.0-37.0) g/dL RDW 17.3 H (11.5-15.5) % Plt Count 132 L (150-450) k/uL Neutrophils # (Manual) 11.90 H (1.3-7.7) k/uL Nucleated RBCs 1 H (0-0) /100 WBC Macrocytosis Marked A D-Dimer 1.04 H (<0.60) mg/L FEU Potassium (3.5-5.1) mmol/L Carbon Dioxide (22-30) mmol/L BUN (7-17) mg/dL Creatinine (0.52-1.04) mg/dL Glucose (74-99) mg/dL Plasma Lactic Acid Enzo (0.7-2.0) mmol/L Total Bilirubin (0.2-1.3) mg/dL AST (14-36) U/L ALT (4-34) U/L Alkaline Phosphatase (38-126) U/L Total Protein (6.3-8.2) g/dL Albumin (3.5-5.0) g/dL Urine Appearance (Clear) Urine Protein (Negative) Urine Ketones (Negative) Urine Blood (Negative) Urine Bilirubin (Negative) Urine RBC (0-5) /hpf Urine WBC (0-5) /hpf Urine Bacteria (None) /hpf Hyaline Casts (0-2) /lpf Urine Mucus (None) /hpf U Marijuana (THC) Screen Detected H (NotDetected) 02/22/20 02/22/20 02/22/20 Range/Units 03:02 03:02 03:02 WBC (3.8-10.6) k/uL Hct (34.0-46.0) % MCV (80.0-100.0) fL MCHC (31.0-37.0) g/dL RDW (11.5-15.5) % Plt Count (150-450) k/uL Neutrophils # (Manual) (1.3-7.7) k/uL Nucleated RBCs (0-0) /100 WBC Macrocytosis D-Dimer (<0.60) mg/L FEU Potassium 5.2 H (3.5-5.1) mmol/L Carbon Dioxide <5 L* (22-30) mmol/L BUN 5 L (7-17) mg/dL Creatinine 1.07 H (0.52-1.04) mg/dL Glucose 232 H (74-99) mg/dL Plasma Lactic Acid Enzo 2.1 H* (0.7-2.0) mmol/L Total Bilirubin 1.5 H (0.2-1.3) mg/dL AST 453 H (14-36) U/L ALT 157 H (4-34) U/L Alkaline Phosphatase 428 H (38-126) U/L Total Protein 10.0 H (6.3-8.2) g/dL Albumin 5.6 H (3.5-5.0) g/dL Urine Appearance Cloudy H (Clear) Urine Protein 3+ H (Negative) Urine Ketones 4+ H (Negative) Urine Blood Small H (Negative) Urine Bilirubin 1+ H (Negative) Urine RBC 44 H (0-5) /hpf Urine WBC 6 H (0-5) /hpf Urine Bacteria Moderate H (None) /hpf Hyaline Casts 212 H (0-2) /lpf Urine Mucus Rare H (None) /hpf U Marijuana (THC) Screen (NotDetected) CT scan - abdomen: report reviewed (computed tomography scan of the abdomen with findings of fatty liver, esophagitis, diffuse colonic wall thickening) Assessment and Plan (1) Diarrhea Narrative/Plan: 34-year-old female with a medical history significant for alcohol abuse who presented with complaints of nausea, vomiting, difficulty swallowing and diarrhea. Patient reports symptoms occurring over the past 3 days. Computed tomography scan showed fatty liver, diffuse colitis, and esophagitis. Normal hemoglobin on presentation with a negative acute viral hepatitis panel testing. Liver enzymes are mildly elevated on presentation currently improved with total bilirubin 0.9, alkaline phosphatase 259, AST 131 and ALT 80. Patient currently receiving treatment for suspected infectious colitis. Bowel movements have improved. Patient also had complained of some odynophagia on presentation which she felt was secondary to reflux and her vomiting which has improved as symptoms have improved. Current Visit: Yes Status: Acute Code(s): R19.7 - DIARRHEA, UNSPECIFIED SNOMED Code(s): 86050068 (2) Colitis Current Visit: Yes Status: Acute Code(s): K52.9 - NONINFECTIVE GASTROENTERITIS AND COLITIS, UNSPECIFIED SNOMED Code(s): 79192239 (3) Nausea & vomiting Current Visit: No Status: Acute Code(s): R11.2 - NAUSEA WITH VOMITING, UNSPECIFIED SNOMED Code(s): 87757582 (4) Odynophagia Current Visit: Yes Status: Acute Code(s): R13.10 - DYSPHAGIA, UNSPECIFIED SNOMED Code(s): 35498857 Plan: supportive care Clear liquid diet initiated Continue broad-spectrum antibiotic therapy Continue IV fluid hydration alcohol abstinence Continue Protonix therapy Extensive discussion with the patient regarding symptoms on presentation, currently patient is reporting resolution of her odynophagia and is not interested in endoscopic evaluation Thank you for allowing us to participate in the care of the patient
[2020-02-24] MEDS: MORPHINE SULFATE 4 MG/ML SYRINGE IVP PRN ×6 (00:35→21:47)
[2020-02-24] MEDS: ALBUTEROL NEBULIZED 2.5 MG/3 ML INHALATION PRN ×5 (01:01→21:12)
[2020-02-24] MEDS: ACETAMINOPHEN TAB 325 MG TAB PO PRN ×2 (02:24→08:31)
[2020-02-24] MEDS: SODIUM CHLORIDE 0.9% 1,000 ML IV SCH ×3 (02:40→13:44)
[2020-02-24] MEDS: metroNIDAZOLE-NS PMX 500 MG in SALINE 1 100ML.BAG IVPB SCH ×3 (04:17→19:34)
[2020-02-24 07:26] LABS: Glucose,Whole Blood 105 mg/dL (75-99)
[2020-02-24] MEDS: VENLAFAXINE HCL ER 75 MG CAP PO SCH (08:20)
[2020-02-24] MEDS: PANTOPRAZOLE 40 MG/10 ML VIAL IVP SCH ×2 (08:20→19:33)
[2020-02-24] MEDS: THIAMINE 100 MG TAB PO SCH ×2 (08:20→17:42)
[2020-02-24] MEDS: busPIRone HCl 10 MG TAB PO SCH ×2 (08:20→19:35)
[2020-02-24] MEDS: ENOXAPARIN 40 MG/0.4 ML SYRINGE SQ SCH (08:21)
[2020-02-24] MEDS: NON FORMULARY DRUG (Buprenorphine Hcl/Naloxone Hcl [Suboxone 4 Mg-1 Mg Sl Film] 1 EACH Fil SUBLINGUAL SCH ×2 (08:21→23:55)
[2020-02-24 10:54] LABS: Anisocytosis Slight; MCH 31.6 pg (25.0-35.0); MCHC 32.5 g/dL (31.0-37.0); Macrocytosis Slight; Mean Platelet Volume 9.9; RBC 3.71 m/uL (3.80-5.40); WBC 7.8 k/uL (3.8-10.6)
[2020-02-24 11:03] LABS: ALT 58 U/L (4-34); AST 140 U/L (14-36); African American GFR (CKD) >90 (>60 ml/min/1.73 sqM); Albumin 3.4 g/dL (3.5-5.0); Albumin/Globulin Ratio 1.3; Alkaline Phosphatase 242 U/L (38-126); Anion Gap 13 mmol/L; Blood Urea Nitrogen <2 mg/dL (7-17); Calcium 9.4 mg/dL (8.4-10.2); Carbon Dioxide 14 mmol/L (22-30); Chloride 111 mmol/L (98-107); Globulin 2.7 g/dL; Glucose 124 mg/dL (74-99); Lipase 778 U/L (23-300); Non-African American GFR(CKD) >90 (>60 ml/min/1.73 sqM); Sodium 138 mmol/L (137-145); Total Bilirubin 1.3 mg/dL (0.2-1.3); Total Protein 6.1 g/dL (6.3-8.2)
[2020-02-24] MEDS ORDERED: Potassium Replacement Protocol 1 EACH MISC MISCELLANE PRN (11:06)
[2020-02-24 11:08] LABS: HGB 11.7 gm/dL (11.4-16.0); MCV 97.1 fL (80.0-100.0)
[2020-02-24] MEDS: POTASSIUM CHLORIDE ER 20 MEQ TAB.ER PO SCH (11:21)
[2020-02-24 11:25] LABS: Platelet Count 93 k/uL (150-450)
[2020-02-24] MEDS ORDERED: POTASSIUM CHLORIDE ER 20 MEQ TAB.ER PO STA (11:26)
[2020-02-24 11:59] LABS: Glucose,Whole Blood 114 mg/dL (75-99)
[2020-02-24] MEDS: LEVOFLOXACIN 500MG-D5W PMX 500 MG in DEXTROSE/WATER 1 100ML.BAG IVPB SCH (12:01)
--- NOTE | 2020-02-24 12:54 | P.PN ---
Subjective Progress Note Date: 02/24/20 Principal diagnosis: Nausea vomiting, odynophagia She was seen and examined standing up in her room. She states nausea and vomiting has subsided. She denies any abdominal pain or diarrhea. She states she is passing flatus. She still has some shortness of breath. She continues to be febrile through the night with a temperature of 100.8. She tolerated her Toth with diarrhea without any complaints of abdominal pain, nausea, or vomiting. She would like to try to advance her diet. Objective - Vital Signs Vital signs: Vital Signs Temp 100.8 F H 02/24/20 07:00 Pulse 118 H 02/24/20 07:00 Resp 18 02/24/20 07:00 BP 138/90 02/24/20 07:00 Pulse Ox 96 02/24/20 07:00 Intake & Output 02/23/20 02/24/20 02/24/20 18:59 06:59 18:59 Other: # Voids 3 - Exam General appearance: The patient is alert, oriented, in no acute distress. HET: Head is normocephalic and atraumatic. Conjunctiva pink. Sclera anicteric. Neck: Supple without lymphadenopathy. Abdomen: Soft, nontender, nondistended with bowel sounds. No guarding or rigidity. Extremities: Normal skin color and turgor. No pedal edema Neurological: No focal deficits. Alert and oriented 3. - Labs CBC & Chem 7: 02/24/20 10:30 02/24/20 10:30 Labs: Abnormal Lab Results - Last 24 Hours (Table) 02/23/20 02/23/20 02/23/20 Range/Units 05:53 05:53 17:32 Potassium 3.2 L (3.5-5.5) mmol/L Carbon Dioxide <10.0 L* (21.6-31.8) mmol/L BUN <5.0 L (9.0-27.0) mg/dL POC Glucose (mg/dL) 112 H (75-99) mg/dL AST 131 H (13-35) U/L ALT 80 H (8-44) U/L Alkaline Phosphatase 259 H (41-126) U/L Total Protein 5.9 L (6.2-8.2) g/dL Lipase 235 H (14-63) U/L 02/23/20 02/24/20 Range/Units 20:25 07:08 Potassium (3.5-5.5) mmol/L Carbon Dioxide (21.6-31.8) mmol/L BUN (9.0-27.0) mg/dL POC Glucose (mg/dL) 124 H 105 H (75-99) mg/dL AST (13-35) U/L ALT (8-44) U/L Alkaline Phosphatase (41-126) U/L Total Protein (6.2-8.2) g/dL Lipase (14-63) U/L Microbiology - Last 24 Hours (Table) 02/22/20 03:53 Blood Culture - Preliminary Blood No Growth after 48 hours 02/22/20 05:33 Gram Stain - Preliminary Sputum Sputum Culture - Preliminary Assessment and Plan (1) Diarrhea Narrative/Plan: 34-year-old female with a medical history significant for alcohol abuse who presented with complaints of nausea, vomiting, difficulty swallowing and diarrhea. Patient reports symptoms occurring over the past 3 days. Computed tomography scan showed fatty liver, diffuse colitis, and esophagitis. Normal hemoglobin on presentation with a negative acute viral hepatitis panel testing. Liver enzymes are mildly elevated on presentation currently improved with total bilirubin 0.9, alkaline phosphatase 259, AST 131 and ALT 80. Patient currently receiving treatment for suspected infectious colitis. Bowel movements have improved. Patient also had complained of some odynophagia on presentation which she felt was secondary to reflux and her vomiting which has improved as symptoms have improved. Current Visit: Yes Status: Acute Code(s): R19.7 - DIARRHEA, UNSPECIFIED SNOMED Code(s): 85260284 (2) Colitis Current Visit: Yes Status: Acute Code(s): K52.9 - NONINFECTIVE GASTROENTER ITIS AND COLITIS, UNSPECIFIED SNOMED Code(s): 65454075 (3) Odynophagia Current Visit: Yes Status: Acute Code(s): R13.10 - DYSPHAGIA, UNSPECIFIED SNOMED Code(s): 89833846 (4) Nausea & vomiting Current Visit: No Status: Acute Code(s): R11.2 - NAUSEA WITH VOMITING, UNSPECIFIED SNOMED Code(s): 60583202 Plan: supportive care Advance to a low fiber diet Continue broad-spectrum antibiotic therapy Continue IV fluid hydration alcohol abstinence Continue Protonix therapy Extensive discussion with the patient regarding symptoms on presentation, currently patient is reporting resolution of her odynophagia and is not interested in endoscopic evaluation Thank you for allowing us to participate in the care of the patient The impression and plan of care has been dictated as directed. I performed a history and examination of this patient, discussed the same with the dictator. I agree with the dictator's note ,documented as a scribe. Any additional findings or plans will be noted.
--- NOTE | 2020-02-24 13:04 | XR ---
EXAMINATION TYPE: XR chest 1V DATE OF EXAM: 02/24/2020 COMPARISON: 08/31/2019 HISTORY: Chest pain TECHNIQUE: Single frontal view of the chest is obtained. FINDINGS: Patchy basilar infiltrates. Correlate for Covid 19 pneumonia The cardiac silhouette size is within normal limits. The osseous structures are intact. IMPRESSION: 1. Patchy basilar infiltrates. Correlate for Covid 19 pneumonia
--- NOTE | 2020-02-24 13:53 | P.PN ---
Subjective 34-year-old female came in with multiple symptoms including the retrosternal pain she is unable to characterize it very well with abdominal pain pre dominantly in the upper quadrants although not able to clearly localize the pain. patient was complaining of nausea and retching and vomiting yesterday. had history of alcohol abuse in the past although she denies using any alcohol recently. But as per the patient patient is unable to keep keep down much. Patient has severe anion gap metabolic acidosis etiology of the current epilepticus versus not. Patient had milder lactic acidosis. Patient had a cholecystectomy in the past patient has history of prescription drug abuse for which patient is on Suboxone. Patient a CAT scan of the chest which was suspicious for atypical infiltrate which was read as suspicious for covid 19, although covid 19 PCR is negativethe patient doesn't have any fever or leukocytosis. CAT scan of the abdomen was done which showed esophagitis and the diffuse colitis. Because of these reasons patient will be started on levofloxacin and metronidazole as I cannot completely rule out atypical pneumonia. Rocephin and azithromycin will be discontinued. 02/23/2020 Patient did have elevated lipase be after which patient was made nothing by mouth patient is hungry today abdominal pain improved patient was started on clear liquid diet. Repeat lipase is down to 235. Liver enzymes are improving. Patient's urinary Legionella antigen is negative mycoplasma antibodies pending patient doesn't appear to have pneumonia or atypical pneumonia. Patient is being treated for colitis. Patient's the metabolic acidosis is improving slowly. Patient does have a ketoacidosis which is probably starvation ketosis. Patient previous hemoglobin A1c was only 4.5. Patient overall doing much better today. Number 02/03/2020 Patient lipase went up a bit patient can he spent clear liquid diet is still complaining of some abdominal pain patient can use to have low-grade fever continue with antibiotics we'll continue to monitor patient has some electrolyte abnormality including low potassium which was replaced. Patient acidosis did improve although does have some hyperchloremia resulting in some non-anion gap metabolic acidosis liver enzymes can you to go down. Patient overall is improving. Constitutional: Denied any fatigue denied any fever. Cardio vascular: denied any chest pain, palpitations Gastrointestinal improved abdominal pain improved nausea Pulmonary: Denied any shortness of breath cough Neurologic denied any new focal deficits All inpatient medications were reviewed and appropriate changes in these medications as dictated in the interval history and assessment and plan. Objective - Vital Signs Vital signs: Vital Signs Temp 100.1 F H 02/24/20 10:53 Pulse 92 02/24/20 12:09 Resp 18 02/24/20 07:00 BP 138/90 02/24/20 07:00 Pulse Ox 96 02/24/20 07:00 Intake & Output 02/23/20 02/24/20 02/24/20 18:59 06:59 18:59 Other: # Voids 3 - Exam PHYSICAL EXAMINATION: GENERAL: The patient is alert and oriented x3, not in any acute distress. Well developed, well nourished. HEENT: Pupils are round and equally reacting to light. EOMI. No scleral icterus. No conjunctival pallor. Normocephalic, atraumatic. No pharyngeal erythema. No thyromegaly. CARDIOVASCULAR: S1 and S2 present. No murmurs, rubs, or gallops. Mildly tachycardic PULMONARY: Chest is clear to auscultation, no wheezing or crackles. ABDOMEN: Soft, nontender, nondistended, normoactive bowel sounds. No palpable organomegaly. MUSCULOSKELETAL: No joint swelling or deformity. EXTREMITIES: No cyanosis, clubbing, or pedal edema. NEUROLOGICAL: Gross neurological examination did not reveal any focal deficits. SKIN: No rashes. - Labs CBC & Chem 7: 02/24/20 10:30 02/24/20 10:30 Labs: Abnormal Lab Results - Last 24 Hours (Table) 02/23/20 02/23/20 02/24/20 Range/Units 17:32 20:25 07:08 RBC (3.80-5.40) m/uL RDW (11.5-15.5) % Plt Count (150-450) k/uL Potassium (3.5-5.1) mmol/L Chloride (98-107) mmol/L Carbon Dioxide (22-30) mmol/L BUN (7-17) mg/dL Creatinine (0.52-1.04) mg/dL Glucose (74-99) mg/dL POC Glucose (mg/dL) 112 H 124 H 105 H (75-99) mg/dL AST (14-36) U/L ALT (4-34) U/L Alkaline Phosphatase (38-126) U/L Total Protein (6.3-8.2) g/dL Albumin (3.5-5.0) g/dL Lipase (23-300) U/L 02/24/20 02/24/20 02/24/20 Range/Units 10:30 10:30 11:58 RBC 3.71 L (3.80-5.40) m/uL RDW 18.0 H (11.5-15.5) % Plt Count 93 L (150-450) k/uL Potassium 3.0 L (3.5-5.1) mmol/L Chloride 111 H (98-107) mmol/L Carbon Dioxide 14 L (22-30) mmol/L BUN <2 L (7-17) mg/dL Creatinine 0.50 L (0.52-1.04) mg/dL Glucose 124 H (74-99) mg/dL POC Glucose (mg/dL) 114 H (75-99) mg/dL AST 140 H (14-36) U/L ALT 58 H (4-34) U/L Alkaline Phosphatase 242 H (38-126) U/L Total Protein 6.1 L (6.3-8.2) g/dL Albumin 3.4 L (3.5-5.0) g/dL Lipase 778 H (23-300) U/L Microbiology - Last 24 Hours (Table) 02/23/20 08:31 Blood Culture - Preliminary Blood No Growth after 24 hours 02/22/20 03:53 Blood Culture - Preliminary Blood No Growth after 48 hours 02/22/20 05:33 Gram Stain - Preliminary Sputum Sputum Culture - Preliminary Assessment and Plan Plan: -odynophagia: Most probably secondary to esophagitis which is from alcoholism. Patient will continued on Protonix twice a day and -Pancolitis: Patient will be started treated for infectious colitis with the levofloxacin and metronidazole. -Acute alcoholic pancreatitis: Improved symptoms patient is being resumed on diet continue with IV fluids -Sepsis secondary to colitis, low possibility of pneumonia.Covid was ruled out -severe anion gapmetabolic acidosis: Multifactorial, improving. Secondary to lactic acidosis which improved, starvation ketosis improving, alcoholism. -Hyperkalemia secondary to acute renal failure which improved - acute renal failure prerenal azotemia secondary to intravascular volume and patient dehydration which improved. -Elevated liver enzymes: Secondary to alcoholic hepatitis , improving liver enzymes -hypovolemic hyponatremia improved with IV fluids -history of nicotine abuse and marijuana use: Counseling was provided -Patient was started on alcohol withdrawal precautions with Ativan. Although patient states she didn't drink for last few days. No alcohol withdrawals at this time -History of prescription drug abuse in the past -DVT prophylaxis with Lovenox
[2020-02-24 16:37] LABS: Glucose,Whole Blood 117 mg/dL (75-99)
[2020-02-24 20:55] LABS: Glucose,Whole Blood 120 mg/dL (75-99)
[2020-02-24] MEDS: BUDESONIDE 0.5 MG/2 ML NEBU INHALATION SCH (21:12)
[2020-02-25] MEDS: SODIUM CHLORIDE 0.9% 1,000 ML IV SCH ×3 (00:50→22:27)
[2020-02-25] MEDS: MORPHINE SULFATE 4 MG/ML SYRINGE IVP PRN ×7 (01:53→21:35)
[2020-02-25] MEDS: ACETAMINOPHEN TAB 325 MG TAB PO PRN (02:50)
[2020-02-25] MEDS: metroNIDAZOLE-NS PMX 500 MG in SALINE 1 100ML.BAG IVPB SCH ×2 (03:55→10:59)
[2020-02-25 05:16] LABS: Mycoplasma IgG Antibody (EIA) 2.48 INDEX (<=0.90); Mycoplasma IgM Antibody 0.66 INDEX (<=0.90)
[2020-02-25 06:57] LABS: Glucose,Whole Blood 96 mg/dL (75-99)
[2020-02-25 07:17] LABS: Anisocytosis Slight; HCT 34.4 % (34.0-46.0); HGB 11.6 gm/dL (11.4-16.0); MCH 32.4 pg (25.0-35.0); MCHC 33.7 g/dL (31.0-37.0); MCV 96.2 fL (80.0-100.0); Macrocytosis Slight; Mean Platelet Volume 9.4; Platelet Count 122 k/uL (150-450); RBC 3.57 m/uL (3.80-5.40); RDW 17.8 % (11.5-15.5)
[2020-02-25] MEDS: BUDESONIDE 0.5 MG/2 ML NEBU INHALATION SCH ×2 (08:02→21:06)
[2020-02-25] MEDS: NON FORMULARY DRUG (Buprenorphine Hcl/Naloxone Hcl [Suboxone 4 Mg-1 Mg Sl Film] 1 EACH Fil SUBLINGUAL SCH ×2 (08:58→22:27)
[2020-02-25] MEDS: LEVOFLOXACIN 500 MG TAB PO SCH (09:06)
[2020-02-25] MEDS: busPIRone HCl 10 MG TAB PO SCH ×2 (09:06→21:37)
[2020-02-25] MEDS: PANTOPRAZOLE 40 MG/10 ML VIAL IVP SCH (09:06)
[2020-02-25] MEDS: ENOXAPARIN 40 MG/0.4 ML SYRINGE SQ SCH (09:06)
[2020-02-25] MEDS: THIAMINE 100 MG TAB PO SCH ×2 (09:06→16:06)
[2020-02-25] MEDS: VENLAFAXINE HCL ER 75 MG CAP PO SCH (09:07)
--- NOTE | 2020-02-25 11:24 | P.PN ---
Subjective 34-year-old female came in with multiple symptoms including the retrosternal pain she is unable to characterize it very well with abdominal pain pre dominantly in the upper quadrants although not able to clearly localize the pain. patient was complaining of nausea and retching and vomiting yesterday. had history of alcohol abuse in the past although she denies using any alcohol recently. But as per the patient patient is unable to keep keep down much. Patient has severe anion gap metabolic acidosis etiology of the current epilepticus versus not. Patient had milder lactic acidosis. Patient had a cholecystectomy in the past patient has history of prescription drug abuse for which patient is on Suboxone. Patient a CAT scan of the chest which was suspicious for atypical infiltrate which was read as suspicious for covid 19, although covid 19 PCR is negativethe patient doesn't have any fever or leukocytosis. CAT scan of the abdomen was done which showed esophagitis and the diffuse colitis. Because of these reasons patient will be started on levofloxacin and metronidazole as I cannot completely rule out atypical pneumonia. Rocephin and azithromycin will be discontinued. 02/23/2020 Patient did have elevated lipase be after which patient was made nothing by mouth patient is hungry today abdominal pain improved patient was started on clear liquid diet. Repeat lipase is down to 235. Liver enzymes are improving. Patient's urinary Legionella antigen is negative mycoplasma antibodies pending patient doesn't appear to have pneumonia or atypical pneumonia. Patient is being treated for colitis. Patient's the metabolic acidosis is improving slowly. Patient does have a ketoacidosis which is probably starvation ketosis. Patient previous hemoglobin A1c was only 4.5. Patient overall doing much better today. Number 02/24/2020 Patient lipase went up a bit patient can he spent clear liquid diet is still complaining of some abdominal pain patient can use to have low-grade fever continue with antibiotics we'll continue to monitor patient has some electrolyte abnormality including low potassium which was replaced. Patient acidosis did improve although does have some hyperchloremia resulting in some non-anion gap metabolic acidosis liver enzymes can you to go down. Patient overall is improving. 02/25/2020 Patient is tolerating soft diet very well. Patient pain is better controlled but not lasting longer. We'll increase the frequency of morphine most probably patient can be discharged tomorrow patient is comparing of nausea secondary to metronidazole. Constitutional: Denied any fatigue denied any fever. Cardio vascular: denied any chest pain, palpitations Gastrointestinal improved abdominal pain improved nausea Pulmonary: Denied any shortness of breath cough Neurologic denied any new focal deficits All inpatient medications were reviewed and appropriate changes in these medications as dictated in the interval history and assessment and plan. Objective - Vital Signs Vital signs: Vital Signs Temp 99.2 F 02/25/20 07:00 Pulse 70 02/25/20 08:20 Resp 18 02/25/20 07:00 BP 143/92 02/25/20 07:00 Pulse Ox 95 02/25/20 07:00 Intake & Output 02/24/20 02/25/20 02/25/20 18:59 06:59 18:59 Other: Voiding Method Toilet # Voids 2 - Exam PHYSICAL EXAMINATION: GENERAL: The patient is alert and oriented x3, not in any acute distress. Well developed, well nourished. HEENT: Pupils are round and equally reacting to light. EOMI. No scleral icterus. No conjunctival pallor. Normocephalic, atraumatic. No pharyngeal erythema. No thyromegaly. CARDIOVASCULAR: S1 and S2 present. No murmurs, rubs, or gallops. Mildly tachycardic PULMONARY: Chest is clear to auscultation, no wheezing or crackles. ABDOMEN: Soft, nontender, nondistended, normoactive bowel sounds. No palpable organomegaly. MUSCULOSKELETAL: No joint swelling or deformity. EXTREMITIES: No cyanosis, clubbing, or pedal edema. NEUROLOGICAL: Gross neurological examination did not reveal any focal deficits. SKIN: No rashes. - Labs CBC & Chem 7: 02/25/20 06:39 02/24/20 10:30 Labs: Abnormal Lab Results - Last 24 Hours (Table) 02/22/20 02/24/20 02/24/20 Range/Units 03:02 10:30 11:58 RBC (3.80-5.40) m/uL RDW (11.5-15.5) % Plt Count 93 L (150-450) k/uL POC Glucose (mg/dL) 114 H (75-99) mg/dL Mycoplasma pneumon IgG 2.48 H (<=0.90) INDEX 02/24/20 02/24/20 02/25/20 Range/Units 16:35 20:53 06:39 RBC 3.57 L (3.80-5.40) m/uL RDW 17.8 H (11.5-15.5) % Plt Count 122 L (150-450) k/uL POC Glucose (mg/dL) 117 H 120 H (75-99) mg/dL Mycoplasma pneumon IgG (<=0.90) INDEX Microbiology - Last 24 Hours (Table) 02/23/20 08:31 Blood Culture - Preliminary Blood No Growth after 48 hours 02/22/20 05:33 Gram Stain - Final Sputum Sputum Culture - Final 02/22/20 03:53 Blood Culture - Preliminary Blood No Growth after 72 hours Assessment and Plan Plan: -odynophagia: Most probably secondary to esophagitis which is from alcoholism. Patient will continued on Protonix twice a day and -Pancolitis: Patient will be started treated for infectious colitis with the levofloxacin and metronidazole. -Acute alcoholic pancreatitis: Improved symptoms patient is being resumed on diet continue with IV fluids -Sepsis secondary to colitis, low possibility of pneumonia.Covid was ruled out -severe anion gapmetabolic acidosis: Multifactorial, improving. Secondary to lactic acidosis which improved, starvation ketosis improving, alcoholism. -Hyperkalemia secondary to acute renal failure which improved - acute renal failure prerenal azotemia secondary to intravascular volume and patient dehydration which improved. -Elevated liver enzymes: Secondary to alcoholic hepatitis , improving liver enzymes -hypovolemic hyponatremia improved with IV fluids -history of nicotine abuse and marijuana use: Counseling was provided -Patient was started on alcohol withdrawal precautions with Ativan. Although patient states she didn't drink for last few days. No alcohol withdrawals at this time -History of prescription drug abuse in the past -DVT prophylaxis with Lovenox
[2020-02-25 11:26] LABS: ALT 62 U/L (8-44); AST 97 U/L (13-35); African American GFR (CKD) 148.4 (60.0-200.0); Albumin/Globulin Ratio 1.95 (1.60-3.17); Alkaline Phosphatase 242 U/L (41-126); Blood Urea Nitrogen <5.0 mg/dL (9.0-27.0); Calcium 9.7 mg/dL (8.7-10.3); Chloride 107 mmol/L (96-109); Glucose 98 mg/dL (70-110); Non-African American GFR(CKD) 128.1 (60.0-200.0); Potassium 3.4 mmol/L (3.5-5.5); Sodium 142 mmol/L (135-145); Total Protein 5.9 g/dL (6.2-8.2)
[2020-02-25] MEDS: ALBUTEROL NEBULIZED 2.5 MG/3 ML INHALATION PRN ×3 (11:32→21:06)
[2020-02-25 11:33] LABS: Glucose,Whole Blood 102 mg/dL (75-99)
--- NOTE | 2020-02-25 13:45 | P.PN ---
Subjective Progress Note Date: 02/25/20 Principal diagnosis: Nausea vomiting, odynophagia Was seen and examined sitting up in bed. She states she is having some right shoulder and back pain. She is tolerating her diet but eating small amounts. She states she is getting some nausea related to her Flagyl. Otherwise her symptoms have improved. Objective - Vital Signs Vital signs: Vital Signs Temp 99.2 F 02/25/20 07:00 Pulse 100 02/25/20 11:55 Resp 18 02/25/20 07:00 BP 143/92 02/25/20 07:00 Pulse Ox 95 02/25/20 07:00 Intake & Output 02/24/20 02/25/20 02/25/20 18:59 06:59 18:59 Other: Voiding Method Toilet # Voids 2 - Exam General appearance: The patient is alert, oriented, in no acute distress. HET: Head is normocephalic and atraumatic. Conjunctiva pink. Sclera anicteric. Neck: Supple without lymphadenopathy. Abdomen: Soft, nontender, nondistended with bowel sounds. No guarding or rigidity. Extremities: Normal skin color and turgor. No pedal edema Neurological: No focal deficits. Alert and oriented 3. - Labs CBC & Chem 7: 02/25/20 06:39 02/25/20 06:39 Labs: Abnormal Lab Results - Last 24 Hours (Table) 02/22/20 02/24/20 02/24/20 Range/Units 03:02 16:35 20:53 RBC (3.80-5.40) m/uL RDW (11.5-15.5) % Plt Count (150-450) k/uL Potassium (3.5-5.5) mmol/L BUN (9.0-27.0) mg/dL Creatinine (0.6-1.5) mg/dL POC Glucose (mg/dL) 117 H 120 H (75-99) mg/dL AST (13-35) U/L ALT (8-44) U/L Alkaline Phosphatase (41-126) U/L Total Protein (6.2-8.2) g/dL Mycoplasma pneumon IgG 2.48 H (<=0.90) INDEX 02/25/20 02/25/20 02/25/20 Range/Units 06:39 06:39 11:32 RBC 3.57 L (3.80-5.40) m/uL RDW 17.8 H (11.5-15.5) % Plt Count 122 L (150-450) k/uL Potassium 3.4 L (3.5-5.5) mmol/L BUN <5.0 L (9.0-27.0) mg/dL Creatinine 0.5 L (0.6-1.5) mg/dL POC Glucose (mg/dL) 102 H (75-99) mg/dL AST 97 H (13-35) U/L ALT 62 H (8-44) U/L Alkaline Phosphatase 242 H (41-126) U/L Total Protein 5.9 L (6.2-8.2) g/dL Mycoplasma pneumon IgG (<=0.90) INDEX Microbiology - Last 24 Hours (Table) 02/23/20 08:31 Blood Culture - Preliminary Blood No Growth after 48 hours 02/22/20 05:33 Gram Stain - Final Sputum Sputum Culture - Final 02/22/20 03:53 Blood Culture - Preliminary Blood No Growth after 72 hours Assessment and Plan (1) Diarrhea Narrative/Plan: 34-year-old female with a medical history significant for alcohol abuse who presented with complaints of nausea, vomiting, difficulty swallowing and diarrhea. Patient reports symptoms occurring over the past 3 days. Computed tomography scan showed fatty liver, diffuse colitis, and esophagitis. Normal hemoglobin on presentation with a negative acute viral hepatitis panel testing. Liver enzymes are mildly elevated on presentation currently improved with total bilirubin 0.9, alkaline phosphatase 259, AST 131 and ALT 80. Patient currently receiving treatment for suspected infectious colitis. Bowel movements have improved. Patient also had complained of some odynophagia on presentation which she felt was secondary to reflux and her vomiting which has improved as symptoms have improved. Current Visit: Yes Status: Acute Code(s): R19.7 - DIARRHEA, UNSPECIFIED SNOMED Code(s): 28225435 (2) Colitis Current Visit: Yes Status: Acute Code(s): K52.9 - NONINFECTIVE GASTROENTERITIS AND COLITIS, UNSPECIFIED SNOMED Code(s): 39781866 (3) Odynophagia Current Visit: Yes Status: Acute Code(s): R13.10 - DYSPHAGIA, UNSPECIFIED SNOMED Code(s): 83722037 (4) Nausea & vomiting Current Visit: No Status: Acute Code(s): R11.2 - NAUSEA WITH VOMITING, UNSPECIFIED SNOMED Code(s): 48630393 Plan: supportive care Advance to a low fiber diet Continue broad-spectrum antibiotic therapy Continue IV fluid hydration alcohol abstinence Continue Protonix therapy No plans for any endoscopic evaluation We will sign off at this time, please don't hesitate to call us with any questions or concerns. The impression and plan of care has been dictated as directed. I performed a history and examination of this patient, discussed the same with the dictator. I agree with the dictator's note ,documented as a scribe. Any additional findings or plans will be noted.
[2020-02-25] MEDS: PANTOPRAZOLE 40 MG TABLET PO SCH (16:05)
[2020-02-25] MEDS: metroNIDAZOLE 500 MG TAB PO SCH (16:05)
[2020-02-25] MEDS: POTASSIUM CHLORIDE ER 20 MEQ TAB.ER PO SCH (16:06)
[2020-02-26] MEDS: MORPHINE SULFATE 4 MG/ML SYRINGE IVP PRN ×5 (00:17→11:05)
[2020-02-26] MEDS: metroNIDAZOLE 500 MG TAB PO SCH ×2 (00:17→08:15)
[2020-02-26] MEDS: SODIUM CHLORIDE 0.9% 1,000 ML IV SCH (05:21)
[2020-02-26] MEDS: BUDESONIDE 0.5 MG/2 ML NEBU INHALATION SCH (07:44)
[2020-02-26] MEDS: ALBUTEROL NEBULIZED 2.5 MG/3 ML INHALATION PRN (07:44)
[2020-02-26] MEDS: busPIRone HCl 10 MG TAB PO SCH (08:14)
[2020-02-26] MEDS: NON FORMULARY DRUG (Buprenorphine Hcl/Naloxone Hcl [Suboxone 4 Mg-1 Mg Sl Film] 1 EACH Fil SUBLINGUAL SCH (08:15)
[2020-02-26] MEDS: ENOXAPARIN 40 MG/0.4 ML SYRINGE SQ SCH (08:15)
[2020-02-26] MEDS: THIAMINE 100 MG TAB PO SCH (08:15)
[2020-02-26] MEDS: VENLAFAXINE HCL ER 75 MG CAP PO SCH (08:15)
[2020-02-26] MEDS: PANTOPRAZOLE 40 MG TABLET PO SCH (08:15)
[2020-02-26] MEDS ORDERED: POTASSIUM CHLORIDE ER 20 MEQ TAB.ER PO SCH (09:00)
[2020-02-26] MEDS ORDERED: POTASSIUM CHLORIDE ER 20 MEQ TAB.ER PO STA (09:11)
[2020-02-26 09:13] VITALS: BP 149/95; RESP 16; TEMP 97.8
[2020-02-26 10:16] LABS: Magnesium 1.5 mg/dL (1.5-2.4); Potassium 3.7 mmol/L (3.5-5.5)
--- NOTE | 2020-02-26 10:44 | P.DS ---
Providers Date of admission: 02/22/20 05:35 Attending physician: William Pereira Primary care physician: [facility] Course: 34-year-old female came in with multiple symptoms including the retrosternal pain she is unable to characterize it very well with abdominal pain predominantly in the upper quadrants although not able to clearly localize the pain. patient was complaining of nausea and retching and vomiting yesterday. had history of alcohol abuse in the past although she denies using any alcohol recently. But as per the patient patient is unable to keep keep down much. Patient has severe anion gap metabolic acidosis etiology of the current epilepticus versus not. Patient had milder lactic acidosis. Patient had a cholecystectomy in the past patient has history of prescription drug abuse for which patient is on Suboxone. Patient a CAT scan of the chest which was suspicious for atypical infiltrate which was read as suspicious for covid 19, although covid 19 PCR is negativethe patient doesn't have any fever or leukocytosis. CAT scan of the abdomen was done which showed esophagitis and the diffuse colitis. Because of these reasons patient will be started on levofloxacin and metronidazole as I cannot completely rule out atypical pneumonia. Rocephin and azithromycin will be discontinued. 02/23/2020 Patient did have elevated lipase be after which patient was made nothing by mouth patient is hungry today abdominal pain improved patient was started on clear liquid diet. Repeat lipase is down to 235. Liver enzymes are improving. Patient's urinary Legionella antigen is negative mycoplasma antibodies pending patient doesn't appear to have pneumonia or atypical pneumonia. Patient is being treated for colitis. Patient's the metabolic acidosis is improving slowly. Patient does have a ketoacidosis which is probably starvation ketosis. Patient previous hemoglobin A1c was only 4.5. Patient overall doing much better today. Number 02/24/2020 Patient lipase went up a bit patient can he spent clear liquid diet is still complaining of some abdominal pain patient can use to have low-grade fever continue with antibiotics we'll continue to monitor patient has some electrolyte abnormality including low potassium which was replaced. Patient acidosis did improve although does have some hyperchloremia resulting in some non-anion gap metabolic acidosis liver enzymes can you to go down. Patient overall is improv ing. 02/25/2020 Patient is tolerating soft diet very well. Patient pain is better controlled but not lasting longer. We'll increase the frequency of morphine most probably patient can be discharged tomorrow patient is comparing of nausea secondary to metronidazole. 02/26/2020 Patient is clinically doing well abdominal pain symptoms significant improved able to tolerate diet will be discharged today on 5 more days of antibiotics for colitis. Patient's pancreatitis improved. Patient wheezing, improved patient will need inhaled steroids which will be prescribed. PHYSICAL EXAMINATION: GENERAL: The patient is alert and oriented x3, not in any acute distress. Well developed, well nourished. HEENT: Pupils are round and equally reacting to light. EOMI. No scleral icterus. No conjunctival pallor. Normocephalic, atraumatic. No pharyngeal erythema. No thyromegaly. CARDIOVASCULAR: S1 and S2 present. No murmurs, rubs, or gallops. PULMONARY: Chest is clear to auscultation, no wheezing or crackles. ABDOMEN: Soft, nontender, nondistended, normoactive bowel sounds. No palpable organomegaly. MUSCULOSKELETAL: No joint swelling or deformity. EXTREMITIES: No cyanosis, clubbing, or pedal edema. NEUROLOGICAL: Gross neurological examination did not reveal any focal deficits. SKIN: No rashes. Assessment and Plan Plan: -odynophagia: Most probably secondary to esophagitis which is from alcoholism. Patient will be discharged on proton pump any better -Pancolitis: Possible infectious colitis being discharged on levofloxacin and metronidazole. Patient will follow with gastroenterology. -Acute alcoholic pancreatitis: Improved -Sepsis secondary to colitis, low possibility of pneumonia.Covid was ruled out -severe anion gapmetabolic acidosis: Multifactorial, improved Secondary to lactic acidosis which improved, starvation ketosis improving, alcoholism. -Hyperkalemia secondary to acute renal failure which improved - acute renal failure prerenal azotemia secondary to intravascular volume and patient dehydration which improved. -Elevated liver enzymes: Secondary to alcoholic hepatitis , improving liver enzymes -hypovolemic hyponatremia improved with IV fluids -history of nicotine abuse and marijuana use: Counseling was provided -Patient was monitored for alcohol withdrawal as well, no withdrawal during this hospitalization -History of prescription drug abuse in the past -Mild COPD/asthma exacerbation Patient Condition at Discharge: Serious Plan - Discharge Summary Discharge Rx Participant: No New Discharge Prescriptions: New metroNIDAZOLE [Flagyl] 500 mg PO Q8HR #15 tab Levofloxacin [Levaquin] 500 mg PO Q24H #5 tab Thiamine [Vitamin B-1] 100 mg PO DAILY #30 tab Omeprazole [PriLOSEC] 40 mg PO AC-BRKFST #14 capsule. Budesonide-Formot 160-4.5 Mcg [Symbicort 160-4.5 Mcg Inhaler] 2 puff INHAL ATION BID #1 inhaler Continue Buprenorphine HCl/Naloxone HCl [Suboxone 4 mg-1 mg Sl Film] 0.5 film SL HS Buprenorphine HCl/Naloxone HCl [Suboxone 4 mg-1 mg Sl Film] 1 film SL DAILY busPIRone HCL 15 mg PO BID Venlafaxine HCl [Effexor XR] 75 mg PO DAILY Discharge Medication List Buprenorphine HCl/Naloxone HCl [Suboxone 4 mg-1 mg Sl Film] 0.5 film SL HS 08/31/19 [History] Buprenorphine HCl/Naloxone HCl [Suboxone 4 mg-1 mg Sl Film] 1 film SL DAILY 08/31/19 [History] busPIRone HCL 15 mg PO BID 08/31/19 [History] Venlafaxine HCl [Effexor XR] 75 mg PO DAILY 02/22/20 [History] Budesonide-Formot 160-4.5 Mcg [Symbicort 160-4.5 Mcg Inhaler] 2 puff INHALATION BID #1 inhaler 02/26/20 [Rx] Levofloxacin [Levaquin] 500 mg PO Q24H #5 tab 02/26/20 [Rx] Omeprazole [PriLOSEC] 40 mg PO AC-BRKFST #14 capsule. 02/26/20 [Rx] Thiamine [Vitamin B-1] 100 mg PO DAILY #30 tab 02/26/20 [Rx] metroNIDAZOLE [Flagyl] 500 mg PO Q8HR #15 tab 02/26/20 [Rx] Follow up Appointment(s)/Referral(s): Yareli Tuttle MD [Primary Care Provider] - 03/02/20 3:30 pm () Clem Elizabeth MD [STAFF PHYSICIAN] - 03/18/20 2:30 pm Discharge Disposition: HOME SELF-CARE
[2020-02-26 10:59] VITALS: PULSE 110
[2020-02-26] MEDS: LEVOFLOXACIN 500 MG TAB PO SCH (11:05)
== END 2020-02-26 13:00 | disposition home or self-care (01) | DRG 871 ==
LOC: EC 02:20 → 4SSUR 05:35
PROVIDERS: ADMIT Hospitalist; ATTEND Hospitalist
DX: A41.9 Sepsis, unspecified organism (principal); K85.20 Alcohol induced acute pancreatitis without necrosis or infection; A09 Infectious gastroenteritis and colitis, unspecified; E87.1 Hypo-osmolality and hyponatremia; E87.2 Acidosis; J44.1 Chronic obstructive pulmonary disease with (acute) exacerbation; J45.901 Unspecified asthma with (acute) exacerbation; N17.9 Acute kidney failure, unspecified; E86.0 Dehydration; E86.1 Hypovolemia; E87.5 Hyperkalemia; E87.8 Other disorders of electrolyte and fluid balance, not elsewhere classified; F10.20 Alcohol dependence, uncomplicated; Z71.6 Tobacco abuse counseling; F17.210 Nicotine dependence, cigarettes, uncomplicated; K70.10 Alcoholic hepatitis without ascites; K76.0 Fatty (change of) liver, not elsewhere classified; R13.10 Dysphagia, unspecified; T37.3X5A Adverse effect of other antiprotozoal drugs, initial encounter; Z20.828 Contact with and (suspected) exposure to other viral communicable diseases; Z79.51 Long term (current) use of inhaled steroids; Z79.899 Other long term (current) drug therapy; Z90.49 Acquired absence of other specified parts of digestive tract; E88.89 Other specified metabolic disorders; K21.00 Gastro-esophageal reflux disease with esophagitis, without bleeding
CPT/HCPCS: 36415; 71045; 71275; 74177; 80048; 80053; 80074; 80306; 80320; 81001; 81003; 81025; 83605; 83690; 83735; 84132; 84484; 85025; 85027; 85379; 86738; 87040; 87070; 87205; 87449; 87502; 87635; 93005; 94640; 96365; 96372; 96375; 99285

== ENCOUNTER 2020-03-01 05:28 | Emergency (ER) | payer OTHER ==
[2020-03-01] MEDS ORDERED: SODIUM CHLORIDE 0.9% 1,000 ML IV ONE (06:23)
[2020-03-01] MEDS ORDERED: SODIUM CHLORIDE 0.9% 1,000 ML IV SCH (06:30)
--- NOTE | 2020-03-01 06:37 | ED ---
General Adult HPI - General Chief complaint: Neuro Symptoms/Deficit Stated complaint: Body numbness Time Seen by Provider: 03/01/20 06:05 Source: patient Mode of arrival: ambulatory Limitations: no limitations - History of Present Illness Initial comments: 34yo female with hx of recent admission for pancreatitis, pneumonia, with history of ETOH abuse (very heavy) presenting for "whole body numbing sensation". Patient states she was in the hospital recently for pneumonia and pancreatitis. She states she has been feeling better-the best she has ever felt in regards to her lungs and abdomen. She states however since sunday she has had a numbing sensation of entire body and tongue. States feel like pins and needles when touches and like her entire body is sleeping. Denies weakness, denies speech changes, confusion, vomiting, diarrhea, palpitations, denies chest pain or SOB. Patient denies dizziness, headaches, neck pain, denies visual changes or loss. Patietn appears well nontoxic on arrival she is no distress and is very pleasant. Denies alcohol use since admission and discharge. - Related Data Home Medications Medication Instructions Recorded Confirmed Buprenorphine HCl/Naloxone HCl 0.5 film SL HS 08/31/19 03/01/20 [Suboxone 4 mg-1 mg Sl Film] Buprenorphine HCl/Naloxone HCl 1 film SL DAILY 08/31/19 03/01/20 [Suboxone 4 mg-1 mg Sl Film] busPIRone HCL 15 mg PO BID 08/31/19 03/01/20 Venlafaxine HCl [Effexor XR] 75 mg PO DAILY 02/22/20 03/01/20 Budesonide-Formot 160-4.5 Mcg 2 puff INHALATION RT-BID 03/01/20 03/01/20 [Symbicort 160-4.5 Mcg Inhaler] Previous Rx's Medication Instructions Recorded Levofloxacin [Levaquin] 500 mg PO Q24H #5 tab 02/26/20 Omeprazole [PriLOSEC] 40 mg PO ANGELO #14 yobani. 02/26/20 Thiamine [Vitamin B-1] 100 mg PO DAILY #30 tab 02/26/20 metroNIDAZOLE [Flagyl] 500 mg PO Q8HR #15 tab 02/26/20 Cyanocobalamin (Vitamin B-12) 1,000 mcg PO DAILY 7 Days #7 tablet 03/01/20 [Vitamin B-12] Folic Acid 1 mg PO DAILY 7 Days #7 tablet 03/01/20 Thiamine HCl [Vitamin B-1] 100 mg PO DAILY 7 Days #7 tablet 03/01/20 Allergies Allergy/AdvReac Type Severity Reaction Status Date / Time No Known Allergies Allergy Verified 03/01/20 07:19 Review of Systems ROS Statement: Those systems with pertinent positive or pertinent negative responses have been documented in the HPI. ROS Other: All systems not noted in ROS Statement are negative. Past Medical History Past Medical History: Asthma, Pneumonia Additional Past Medical History / Comment(s): Broken middle finger R hand, pancreatitis. History of Any Multi-Drug Resistant Organisms: None Reported Past Surgical History: Cholecystectomy Past Anesthesia/Blood Transfusion Reactions: No Reported Reaction Past Psychological History: Anxiety, Depression Smoking Status: Current every day smoker Past Alcohol Use History: Heavy Past Drug Use History: None Reported - Past Family History Mother History Unknown: Yes Father History Unknown: Yes General Exam - General Exam Comments Initial Comments: General: The patient is awake and alert, in no distress Eye: +3 mm pupils are equal, round and reactive to light, extra-ocular movements are intact. No nystagmus. There is normal conjunctiva bilaterally. No signs of icterus. Ears, nose, mouth and throat: There are moist mucous membranes and no oral lesions. Neck: The neck is supple, there is no tenderness or JVD. Cardiovascular: There is a regular rate and rhythm. No murmur, rub or gallop is appreciated. Respiratory: Lungs are clear to auscultation, respirations are non-labored, breath sounds are equal. No wheezes, stridor, rales, or rhonchi. Gastrointestinal: Soft, non-distended, non-tender abdomen without masses or organomegaly noted. There is no rebound or guarding present. Musculoskeletal: Normal ROM, no tenderness. Strength 5/5 of the UE and LE b/l. fancy packer strength intact. Gait WNL. Sensation intact to touch of the UE and LE, face abdomen, back but "feels picky". Radial pulses equal bilaterally 2+. Finger to nose smooth and coordinated. Neurological: A&O x 3. CN II-XII intact grossly, There are no obvious motor or sensory deficits. Coordination appears grossly intact. Speech is normal. Skin: Skin is warm and dry and no rashes or lesions are noted. Psychiatric: Cooperative, appropriate mood & affect, normal judgment. Limitations: no limitations Course Vital Signs 03/01/20 03/01/20 05:32 07:21 Temperature 98.7 F 97.9 F Pulse Rate 83 102 H Respiratory 17 16 Rate Blood Pressure 139/98 122/98 O2 Sat by Pulse 97 98 Oximetry Medical Decision Making - Medical Decision Making AAOx4, well appearing 34 yo femael with history of alcoholism presenting for cc of parathesias, initially she stated they were ongoing since sunday but on reevaluation she changed history stating shes actually noticed it for the past month. No focalized deficits. Patient does not appear altered/confused. No distress, no vomiting, diarrhea. Patient case discussed with my attending in detail at this time givne patient has close outpatient f/u and appears well with mild symptoms of suspected b vitamin deficiency (B12 vs thiamine) pt will be discharged on folic acid, thiamine and b12. Patient prefers discharge and is agreeable to this care plan. Patient has appointment tomorrow with PCP. - Lab Data Result diagrams: 03/01/20 06:11 03/01/20 06:11 Lab Results 03/01/20 03/01/20 Range/Units 06:11 06:11 WBC 9.0 (3.8-10.6) k/uL RBC 4.27 (3.80-5.40) m/uL Hgb 13.5 (11.4-16.0) gm/dL Hct 41.0 (34.0-46.0) % MCV 96.2 (80.0-100.0) fL MCH 31.5 (25.0-35.0) pg MCHC 32.8 (31.0-37.0) g/dL RDW 20.0 H (11.5-15.5) % Plt Count 441 D (150-450) k/uL MPV 7.8 Poikilocytosis Slight Anisocytosis Moderate Macrocytosis Slight Sodium 135 L (137-145) mmol/L Potassium 3.3 L (3.5-5.1) mmol/L Chloride 97 L (98-107) mmol/L Carbon Dioxide 26 (22-30) mmol/L Anion Gap 12 mmol/L BUN 10 (7-17) mg/dL Creatinine 0.48 L (0.52-1.04) mg/dL Est GFR (CKD-EPI)AfAm >90 (>60 ml/min/1.73 sqM) Est GFR (CKD-EPI)NonAf >90 (>60 ml/min/1.73 sqM) Glucose 98 (74-99) mg/dL Calcium 9.3 (8.4-10.2) mg/dL Magnesium 1.6 (1.6-2.3) mg/dL Total Bilirubin 1.2 (0.2-1.3) mg/dL AST 125 H (14-36) U/L ALT 43 H (4-34) U/L Alkaline Phosphatase 473 H (38-126) U/L Creatine Kinase 89 (30-135) U/L Total Protein 6.6 (6.3-8.2) g/dL Albumin 3.9 (3.5-5.0) g/dL Amylase 47 (30-110) U/L Lipase 198 (23-300) U/L Disposition Clinical Impression: Complaint of paresthesia, History of ETOH abuse, Vitamin deficiency Disposition: HOME SELF-CARE Condition: Good Instructions (If sedation given, give patient instructions): Thiamine (By mouth), Vitamin B12 Deficiency (ED) Additional Instructions: Please use medication as discussed. Please follow-up with family doctor in the next 2 days, this is important and your vitamins most likely will need refill, please return for any confusion, weakness, diarrhea, vomiting, headaches, off balance. Please return to emergency room if the symptoms increase or worsen or for any other concerns. Prescriptions: Folic Acid 1 mg PO DAILY 7 Days #7 tablet Thiamine HCl [Vitamin B-1] 100 mg PO DAILY 7 Days #7 tablet Cyanocobalamin (Vitamin B-12) [Vitamin B-12] 1,000 mcg PO DAILY 7 Days #7 tablet Is patient prescribed a controlled substance at d/c from ED?: No Referrals: Yareli Tuttle MD [Primary Care Provider] - 1-2 days Time of Disposition: 07:53
[2020-03-01] MEDS ORDERED: THIAMINE 100 MG/ML 2 ML VIAL IM STA (06:42)
[2020-03-01 06:48] LABS: Anisocytosis Moderate; Basophils # (A) 0.1 k/uL (0-0.2); Basophils % (A) 1 %; Eosinophils # (A) 0.2 k/uL (0-0.7); Eosinophils % (A) 2 %; HGB 13.5 gm/dL (11.4-16.0); Lymphocytes # (A) 1.7 k/uL (1.0-4.8); Lymphocytes % (A) 19 %; MCH 31.5 pg (25.0-35.0); MCHC 32.8 g/dL (31.0-37.0); MCV 96.2 fL (80.0-100.0); Macrocytosis Slight; Mean Platelet Volume 7.8; Monocytes # (A) 0.6 k/uL (0-1.0); Monocytes % (A) 7 %; Neutrophils # (A) 6.3 k/uL (1.3-7.7); Neutrophils % (A) 70 %; Poikilocytosis Slight; RBC 4.27 m/uL (3.80-5.40)
[2020-03-01 07:02] LABS: ALT 43 U/L (4-34); AST 125 U/L (14-36); African American GFR (CKD) >90 (>60 ml/min/1.73 sqM); Albumin 3.9 g/dL (3.5-5.0); Alkaline Phosphatase 473 U/L (38-126); Amylase 47 U/L (30-110); Anion Gap 12 mmol/L; Blood Urea Nitrogen 10 mg/dL (7-17); Calcium 9.3 mg/dL (8.4-10.2); Carbon Dioxide 26 mmol/L (22-30); Chloride 97 mmol/L (98-107); Creatine Kinase 89 U/L (30-135); Glucose 98 mg/dL (74-99); Lipase 198 U/L (23-300); Magnesium 1.6 mg/dL (1.6-2.3); Non-African American GFR(CKD) >90 (>60 ml/min/1.73 sqM); Potassium 3.3 mmol/L (3.5-5.1); Sodium 135 mmol/L (137-145); Total Bilirubin 1.2 mg/dL (0.2-1.3); Total Protein 6.6 g/dL (6.3-8.2)
[2020-03-01] MEDS ORDERED: POTASSIUM CHLORIDE ER 10 MEQ TAB.ER.PRT PO STA (07:14)
[2020-03-01 07:24] LABS: Platelet Count 441 k/uL (150-450)
[2020-03-01 07:27] VITALS: BP 122/98; PULSE 102; RESP 16; TEMP 97.9
[2020-03-01] MEDS ORDERED: FOLIC ACID 1 MG TAB PO STA (07:50)
[2020-03-01] MEDS ORDERED: CYANOCOBALAMIN 1,000 MCG/ML 1 ML VIAL IM SCH (09:00)
[2020-03-01 09:13] LABS: Target Cells Present
[2020-03-01 09:15] LABS: Polychromasia Present
[2020-03-01] MEDS ORDERED: THIAMINE 100 MG TAB PO SCH (17:30)
== END 2020-03-01 08:16 | disposition home or self-care (01) ==
LOC: EC 05:28
DX: R20.2 Paresthesia of skin (principal); E56.9 Vitamin deficiency, unspecified; J45.909 Unspecified asthma, uncomplicated; F41.9 Anxiety disorder, unspecified; F32.9 Major depressive disorder, single episode, unspecified; F17.200 Nicotine dependence, unspecified, uncomplicated; Z79.899 Other long term (current) drug therapy; Z79.891 Long term (current) use of opiate analgesic; Z79.51 Long term (current) use of inhaled steroids
CPT/HCPCS: 80053; 82150; 82550; 83690; 83735; 85025; 99284; 96360; 96361; 96372; J3411

== ENCOUNTER 2020-03-02 06:58 | Emergency (ER) | payer OTHER ==
[2020-03-02 07:07] VITALS: RESP 18; TEMP 97.8
[2020-03-02] MEDS ORDERED: cloNIDine HCL 0.1 MG TAB PO STA (07:21)
[2020-03-02] MEDS ORDERED: SODIUM CHLORIDE 0.9% 1,000 ML IV ONE (07:22)
[2020-03-02] MEDS ORDERED: KETOROLAC 15 MG/ML 1 ML VIAL IVP STA (07:39)
[2020-03-02 07:55] LABS: ALT 40 U/L (4-34); AST 141 U/L (14-36); African American GFR (CKD) >90 (>60 ml/min/1.73 sqM); Albumin 3.6 g/dL (3.5-5.0); Alkaline Phosphatase 476 U/L (38-126); Anion Gap 6 mmol/L; Blood Urea Nitrogen 9 mg/dL (7-17); Calcium 9.4 mg/dL (8.4-10.2); Carbon Dioxide 32 mmol/L (22-30); Chloride 99 mmol/L (98-107); Creatine Kinase 69 U/L (30-135); Glucose 124 mg/dL (74-99); Lipase 110 U/L (23-300); Magnesium 1.7 mg/dL (1.6-2.3); Non-African American GFR(CKD) >90 (>60 ml/min/1.73 sqM); Potassium 3.5 mmol/L (3.5-5.1); Sodium 137 mmol/L (137-145); Total Bilirubin 1.2 mg/dL (0.2-1.3); Total Protein 6.4 g/dL (6.3-8.2)
[2020-03-02 07:59] LABS: D-Dimer 0.19 mg/L FEU (<0.60); INR 0.9 (<1.2); Partial Thromboplastin Time 23.7 sec (22.0-30.0); Prothrombin Time 9.5 sec (9.0-12.0)
--- NOTE | 2020-03-02 08:02 | ED ---
General Adult HPI - General Chief complaint: Recheck/Abnormal Lab/Rx Stated complaint: pain Time Seen by Provider: 03/02/20 07:05 Source: patient Mode of arrival: ambulatory Limitations: no limitations - History of Present Illness Initial comments: Grade 4-year-old female with past mental history of opiate and alcohol abuse who presents emergency Department with reported diffuse pain. Patient was seen in the emergency room yesterday for similar complaints. Evaluation was performed and the patient was discharged home with a prescription for folic acid. Patient took this medication in addition to her recently prescribed antibiotics. She was hospitalized for pneumonia and pancreatitis. States that her symptoms from yesterday have not improved and therefore she returns for reevaluation. Patient reports to diffuse pain and tingling which starts in her face, tongue and extends into her shoulders, back and legs. She denies any lateralizing s ymptoms. Reports that her last dose of Suboxone was a week ago. During her hospitalization she mentions that she was getting frequent doses of morphine and now since she has been home the only pain medication that she is taking is [place] that she is obtaining from a friend. States that she cannot take her Suboxone because "her mouth is too dry." States that she has been eating and drinking without difficulty. Denies abdominal pain. No fevers or chills. No cough. Reports that her breathing is much improved at this time. Does admit to palpitations but no chest pain. No concern for . Patient also mentions that she is having left posterior knee pain. Denies history of DVT or PE. No lower extremity edema. No alleviating, precipitating or modifying factors - Related Data Home Medications Medication Instructions Recorded Confirmed Buprenorphine HCl/Naloxone HCl 0.5 film SL HS 08/31/19 03/02/20 [Suboxone 4 mg-1 mg Sl Film] Buprenorphine HCl/Naloxone HCl 1 film SL DAILY 08/31/19 03/02/20 [Suboxone 4 mg-1 mg Sl Film] busPIRone HCL 15 mg PO BID 08/31/19 03/02/20 Venlafaxine HCl [Effexor XR] 75 mg PO DAILY 02/22/20 03/02/20 Budesonide-Formot 160-4.5 Mcg 2 puff INHALATION RT-BID 03/01/20 03/02/20 [Symbicort 160-4.5 Mcg Inhaler] Previous Rx's Medication Instructions Recorded Levofloxacin [Levaquin] 500 mg PO Q24H #5 tab 02/26/20 Omeprazole [PriLOSEC] 40 mg PO -DAVIDKFSEugene #14 capsule. 02/26/20 Thiamine [Vitamin B-1] 100 mg PO DAILY #30 tab 02/26/20 metroNIDAZOLE [Flagyl] 500 mg PO Q8HR #15 tab 02/26/20 Cyanocobalamin (Vitamin B-12) 1,000 mcg PO DAILY 7 Days #7 tablet 03/01/20 [Vitamin B-12] Folic Acid 1 mg PO DAILY 7 Days #7 tablet 03/01/20 Allergies Allergy/AdvReac Type Severity Reaction Status Date / Time No Known Allergies Allergy Verified 03/02/20 07:43 Review of Systems ROS Statement: Those systems with pertinent positive or pertinent negative responses have been documented in the HPI. ROS Other: All systems not noted in ROS Statement are negative. Past Medical History Past Medical History: Asthma, Pneumonia Additional Past Medical History / Comment(s): Broken middle finger R hand, pancreatitis. History of Any Multi-Drug Resistant Organisms: None Reported Past Surgical History: Cholecystectomy Past Anesthesia/Blood Transfusion Reactions: No Reported Reaction Past Psychological History: Anxiety, Depression Smoking Status: Current every day smoker Past Alcohol Use History: Heavy Past Drug Use History: Marijuana - Past Family History Mother History Unknown: Yes Father History Unknown: Yes General Exam Limitations: no limitations General appearance: alert, in no apparent distress Head exam: Present: atraumatic, normocephalic, normal inspection Eye exam: Present: normal appearance, PERRL, EOMI. Absent: scleral icterus, conjunctival injection, periorbital swelling ENT exam: Present: normal exam, mucous membranes moist Neck exam: Present: normal inspection. Absent: tenderness, meningismus, lymphadenopathy Respiratory exam: Present: normal lung sounds bilaterally. Absent: respiratory distress, wheezes, rales, rhonchi, stridor Cardiovascular Exam: Present: normal rhythm, tachycardia, normal heart sounds. Absent: systolic murmur, diastolic murmur, rubs, gallop, clicks GI/Abdominal exam: Present: soft, normal bowel sounds. Absent: distended, tenderness, guarding, rebound, rigid Extremities exam: Present: normal inspection, full ROM, tenderness (left posterior thigh), normal capillary refill. Absent: pedal edema, joint swelling, calf tenderness Back exam: Present: normal inspection Neurological exam: Present: alert, oriented X3, CN II-XII intact Psychiatric exam: Present: normal affect, normal mood Skin exam: Present: warm, dry, intact, normal color. Absent: rash Course Vital Signs 03/02/20 03/02/20 07:04 09:11 Temperature 97.8 F Pulse Rate 111 H 90 Respiratory 18 18 Rate Blood Pressure 153/97 146/78 O2 Sat by Pulse 96 Oximetry Medical Decision Making - Medical Decision Making Upon arrival patient was placed into room 6. A thorough history and physical exam was performed. I did recommend laboratory studies and ultrasound of the patient's left lower extremity due to posterior knee pain with recent hospitalization. Patient is requesting pain medications. I did recommend treatment with Clonidine and Toradol. Patient upset, requesting Morphine or Dilaudid. Discussed that we are going to try pain medications that do not involve opiates. Patient did accept clonidine and Toradol. Laboratory studies were ordered as well as the ultrasound. Patient is reevaluated by the nurse. She states that she is not going to get any pain medications and she "might as well just go home". I am able to convince patient to stay for the results of her laboratory studies. I did give her dose of Ativan and Toradol as she continues to report significant discomfort. Laboratory studies are reviewed. D-dimer is normal. Venous duplex of the left lower trauma demonstrates no DVT. Patient will be discharged home and has a follow-up appointment with her primary care doctor at 3:30 today. I instructed her to take her Suboxone soon as she gets home. If her pain persists she needs to have a repeat ultrasound in 1 week. If she has any new or worsening symptoms she should return to the emergency room. Patient was discharged home in stable condition - Lab Data Result diagrams: 03/02/20 07:26 03/02/20 07:26 Lab Results 03/02/20 03/02/20 03/02/20 Range/Units 07:26 07:26 07:26 WBC 7.7 (3.8-10.6) k/uL RBC 4.26 (3.80-5.40) m/uL Hgb 13.3 (11.4-16.0) gm/dL Hct 41.7 (34.0-46.0) % MCV 97.7 (80.0-100.0) fL MCH 31.3 (25.0-35.0) pg MCHC 32.0 (31.0-37.0) g/dL RDW 20.6 H (11.5-15.5) % Plt Count 464 H (150-450) k/uL MPV 7.6 Neutrophils % (Manual) 69 % Lymphocytes % (Manual) 20 % Monocytes % (Manual) 9 % Eosinophils % (Manual) 2 % Metamyelocytes % 1 % Myelocytes % 1 % Neutrophils # (Manual) 5.31 (1.3-7.7) k/uL Lymphocytes # (Manual) 1.54 (1.0-4.8) k/uL Monocytes # (Manual) 0.69 (0-1.0) k/uL Eosinophils # (Manual) 0.15 (0-0.7) k/uL Metamyelocytes # (Man) 0.08 H (0) k/uL Myelocytes # (Manual) 0.08 H (0) k/uL Nucleated RBCs 1 H (0-0) /100 WBC Manual Slide Review Performed Large Platelets Present Polychromasia Present Poikilocytosis Slight Anisocytosis Moderate Macrocytosis Slight Tear Drop Cells Present PT 9.5 (9.0-12.0) sec INR 0.9 (<1.2) APTT 23.7 (22.0-30.0) sec D-Dimer 0.19 (<0.60) mg/L FEU Sodium 137 (137-145) mmol/L Potassium 3.5 (3.5-5.1) mmol/L Chloride 99 (98-107) mmol/L Carbon Dioxide 32 H (22-30) mmol/L Anion Gap 6 mmol/L BUN 9 (7-17) mg/dL Creatinine 0.45 L (0.52-1.04) mg/dL Est GFR (CKD-EPI)AfAm >90 (>60 ml/min/1.73 sqM) Est GFR (CKD-EPI)NonAf >90 (>60 ml/min/1.73 sqM) Glucose 124 H (74-99) mg/dL Plasma Lactic Acid Enzo (0.7-2.0) mmol/L Calcium 9.4 (8.4-10.2) mg/dL Magnesium 1.7 (1.6-2.3) mg/dL Total Bilirubin 1.2 (0.2-1.3) mg/dL AST 141 H (14-36) U/L ALT 40 H (4-34) U/L Alkaline Phosphatase 476 H (38-126) U/L Creatine Kinase 69 (30-135) U/L Total Protein 6.4 (6.3-8.2) g/dL Albumin 3.6 (3.5-5.0) g/dL Lipase 110 (23-300) U/L TSH 1.670 (0.465-4.680) mIU/L 03/02/20 Range/Units 07:26 WBC (3.8-10.6) k/uL RBC (3.80-5.40) m/uL Hgb (11.4-16.0) gm/dL Hct (34.0-46.0) % MCV (80.0-100.0) fL MCH (25.0-35.0) pg MCHC (31.0-37.0) g/dL RDW (11.5-15.5) % Plt Count (150-450) k/uL MPV Neutrophils % (Manual) % Lymphocytes % (Manual) % Monocytes % (Manual) % Eosinophils % (Manual) % Metamyelocytes % % Myelocytes % % Neutrophils # (Manual) (1.3-7.7) k/uL Lymphocytes # (Manual) (1.0-4.8) k/uL Monocytes # (Manual) (0-1.0) k/uL Eosinophils # (Manual) (0-0.7) k/uL Metamyelocytes # (Man) (0) k/uL Myelocytes # (Manual) (0) k/uL Nucleated RBCs (0-0) /100 WBC Manual Slide Review Large Platelets Polychromasia Poikilocytosis Anisocytosis Macrocytosis Tear Drop Cells PT (9.0-12.0) sec INR (<1.2) APTT (22.0-30.0) sec D-Dimer (<0.60) mg/L FEU Sodium (137-145) mmol/L Potassium (3.5-5.1) mmol/L Chloride (98-107) mmol/L Carbon Dioxide (22-30) mmol/L Anion Gap mmol/L BUN (7-17) mg/dL Creatinine (0.52-1.04) mg/dL Est GFR (CKD-EPI)AfAm (>60 ml/min/1.73 sqM) Est GFR (CKD-EPI)NonAf (>60 ml/min/1.73 sqM) Glucose (74-99) mg/dL Plasma Lactic Acid Enzo 1.7 (0.7-2.0) mmol/L Calcium (8.4-10.2) mg/dL Magnesium (1.6-2.3) mg/dL Total Bilirubin (0.2-1.3) mg/dL AST (14-36) U/L ALT (4-34) U/L Alkaline Phosphatase (38-126) U/L Creatine Kinase (30-135) U/L Total Protein (6.3-8.2) g/dL Albumin (3.5-5.0) g/dL Lipase (23-300) U/L TSH (0.465-4.680) mIU/L Disposition Clinical Impression: Myalgia, Complaint of paresthesia, Tachycardia, Opiate withdrawal, Hypomagnesemia Disposition: HOME SELF-CARE Condition: Stable Instructions (If sedation given, give patient instructions): Musculoskeletal Pain (ED) Additional Instructions: Follow-up with your doctor at 3:30 pm today. Take your Suboxone as soon as you get home. Return to the emergency room for any new or worsening symptoms Is patient prescribed a controlled substance at d/c from ED?: No Referrals: Yareli Tuttle MD [Primary Care Provider] - 1-2 days Time of Disposition: 08:53
[2020-03-02 08:23] LABS: Anisocytosis Moderate; HCT 41.7 % (34.0-46.0); HGB 13.3 gm/dL (11.4-16.0); MCH 31.3 pg (25.0-35.0); MCV 97.7 fL (80.0-100.0); Macrocytosis Slight; Mean Platelet Volume 7.6; Platelet Count 464 k/uL (150-450); Poikilocytosis Slight; RBC 4.26 m/uL (3.80-5.40); RDW 20.6 % (11.5-15.5)
--- NOTE | 2020-03-02 08:41 | US ---
EXAMINATION TYPE: US venous doppler duplex LE LT DATE OF EXAM: 03/02/2020 8:33 AM COMPARISON: NONE CLINICAL HISTORY: pain, recent hospitalization. SIDE PERFORMED: Left TECHNIQUE: The lower extremity deep venous system is examined utilizing real time linear array sonog irma with graded compression, doppler sonography and color-flow sonography. VESSELS IMAGED: Common Femoral Vein Deep Femoral Vein Greater Saphenous Vein * Femoral Vein Popliteal Vein Small Saphenous Vein * Proximal Calf Veins (* superficial vessels) Left Leg: Negative for DVT IMPRESSION: 1. Left lower extremity ultrasound negative for deep venous thrombosis.
[2020-03-02] MEDS ORDERED: MAGNESIUM OXIDE 400 MG TAB PO STA (08:50)
[2020-03-02] MEDS ORDERED: LORazepam 2 MG/ML INJ IV STA (08:50)
[2020-03-02] MEDS ORDERED: traMADol 50 MG TAB PO STA (08:50)
[2020-03-02 09:17] VITALS: BP 146/78; PULSE 90
[2020-03-02 09:18] LABS: Eosinophils # (M) 0.15 k/uL (0-0.7); Lymphocytes # (M) 1.54 k/uL (1.0-4.8); Metamyelocytes # (M) 0.08 k/uL (0); Metamyelocytes % 1 %; Monocytes # (M) 0.69 k/uL (0-1.0); Myelocytes # (M) 0.08 k/uL (0); Myelocytes % 1 %; Neutrophils # (M) 5.31 k/uL (1.3-7.7); Neutrophils % (M) 69 %; Nucleated Red Blood Cells 1 /100 WBC (0-0); Total Cells Counted 200; WBC 7.7 k/uL (3.8-10.6)
[2020-03-02 09:19] LABS: Large Platelets Present; Tear Drop Cells Present
[2020-03-02 09:20] LABS: Polychromasia Present
== END 2020-03-02 09:18 | disposition home or self-care (01) ==
LOC: EC 06:58
DX: M79.10 Myalgia, unspecified site (principal); E83.42 Hypomagnesemia; F11.23 Opioid dependence with withdrawal; M25.562 Pain in left knee; R00.0 Tachycardia, unspecified; F41.9 Anxiety disorder, unspecified; F32.9 Major depressive disorder, single episode, unspecified; J45.909 Unspecified asthma, uncomplicated; F17.200 Nicotine dependence, unspecified, uncomplicated; Z79.51 Long term (current) use of inhaled steroids; Z79.899 Other long term (current) drug therapy
CPT/HCPCS: 36415; 85379; 80053; 84443; 82550; 83605; 83690; 83735; 85025; 85610; 85730; 93971; 99284; 96374; 96375; 96361 ×2; J2060; J1885